=== PATIENT | female | born 1970 | race Caucasian/White ===

== ENCOUNTER → 2016-05-20 | Outpatient (CLI) | payer BC ==
[~2016-05-20] MED LIST: BCPILLS PO; LISI-461 PO; MULT-506 PO; NOVOLIN SQ; NVLGI SQ; ZCR80 PO
--- NOTE | 2016-05-21 14:26 | MAMMOGRAPHY REPORT ---
BILATERAL DIGITAL SCREENING MAMMOGRAM TOMOSYNTHESIS WITH CAD: 05/20/2016 CLINICAL HISTORY: Routine screening. Patient has no complaints. TECHNIQUE: Breast tomosynthesis in addition to standard 2D mammography was performed. Current study was also evaluated with a Computer Aided Detection (CAD) system. COMPARISON: Comparison is made to exams dated: 05/17/2015 mammogram, 03/07/2013 mammogram, 05/11/2014 m ammogram, 10/20/2011 mammogram, 09/11/2010 ultrasound, and 09/11/2010 mammogram - [facility]. BREAST COMPOSITION: The tissue of both breasts is extremely dense, which lowers the sensitivity of mammography. FINDINGS: The parenchymal pattern is unchanged. No developing mass, architectural distortion or clu ster of suspicious microcalcifications is seen in either breast. IMPRESSION: ACR BI-RADS CATEGORY 2: BENIGN There is no mammographic evidence of malignancy. A 1 year screening mammogram is recommended. The p atient will receive written notification of the results. Approximately 10% of breast cancers are not detected with mammography. A negative mammographic repor t should not delay biopsy if a clinically suggestive mass is present. Zuleima Perry M.D. ay/:05/20/2016 22:48:15 Wood Barrel Reconditioner: Tyler YUNG(R)(M), [facility] letter sent: Normal 1/2 BI-RADS Code: ACR BI-RADS Category 2: Benign
== END | disposition home or self-care (01) ==
LOC: C.MAMM 07:15
PROVIDERS: ATTEND Obstetrics & Gynecology
DX: Z12.31 Encounter for screening mammogram for malignant neoplasm of breast (principal)

== ENCOUNTER → 2016-08-27 | Outpatient (CLI) | payer BC ==
[2016-08-27 09:41] LABS: ESTIMATED AVERAGE GLUCOSE 143 mg/dl; HA1C FLAG Normal (Normal)
[2016-08-27 10:06] LABS: ALT/SGPT 28 U/L (12-78); BLOOD UREA NITROGEN 14 mg/dl (7-18); BUN/CREATININE RATIO 18.4 (10-20); CARBON DIOXIDE 31 mmol/L (21-32); CHLORIDE 104 mmol/L (98-107); CHOLESTEROL 129 mg/dl (0-200); CREATININE 0.75 mg/dl (0.60-1.20); GLUCOSE 122 mg/dl (70-99); POTASSIUM 3.9 mmol/L (3.5-5.1); SODIUM 140 mmol/L (136-145); TRIGLYCERIDES 70 mg/dl (0-150); VERY LOW DENSITY LIPOPROT CALC 14 mg/dl
[2016-08-27 10:16] LABS: ALB/GLOB RATIO 1.1 (0.9-2); ALKALINE PHOSPHATASE 94 U/L (45-117); AST/SGOT 23 U/L (15-37); CHOLESTEROL/HDL RATIO 1.8; HDL CHOLESTEROL 70 mg/dl; LDL CHOLESTEROL CALCULATED 45 mg/dl
[2016-08-27 10:26] LABS: CALCIUM 9.2 mg/dl (8.5-10.1)
== END | disposition home or self-care (01) ==
LOC: C.LAB1850 07:39
PROVIDERS: ATTEND Internal Medicine
DX: E10.39 Type 1 diabetes mellitus with other diabetic ophthalmic complication (principal)

== ENCOUNTER → 2016-12-30 | Outpatient (CLI) | payer BC ==
[2016-12-30 17:23] LABS: HEMATOCRIT 42.9 % (37-47); MEAN CELL VOLUME 94.5 fL (80-100); MEAN CORPUSCULAR HEMOGLOBIN 31.3 pg (25-34); MEAN CORPUSCULAR HGB CONC 33.1 g/dl (32-36); MEAN PLATELET VOLUME 10.4 fL (7.4-10.4); PLATELET COUNT 229 K/uL (130-400); RED BLOOD COUNT 4.54 M/uL (4.2-5.4); WHITE BLOOD COUNT 6.27 K/uL (4.8-10.8)
[2016-12-30 18:00] LABS: ALT/SGPT 22 U/L (12-78); BLOOD UREA NITROGEN 11 mg/dl (7-18); BUN/CREATININE RATIO 16.1 (10-20); CARBON DIOXIDE 31 mmol/L (21-32); CHLORIDE 105 mmol/L (98-107); CHOLESTEROL 133 mg/dl (0-200); CREATININE 0.66 mg/dl (0.60-1.20); GLUCOSE 64 mg/dl (70-99); POTASSIUM 4.1 mmol/L (3.5-5.1); SODIUM 140 mmol/L (136-145); TRIGLYCERIDES 55 mg/dl (0-150); VERY LOW DENSITY LIPOPROT CALC 11 mg/dl
[2016-12-30 18:04] LABS: ALKALINE PHOSPHATASE 82 U/L (45-117); AST/SGOT 16 U/L (15-37); CHOLESTEROL/HDL RATIO 1.8; HDL CHOLESTEROL 75 mg/dl; LDL CHOLESTEROL CALCULATED 47 mg/dl
[2016-12-30 18:12] LABS: RATIO 36.5 mcg/mg (0-30.0)
[2016-12-31 07:37] LABS: ESTIMATED AVERAGE GLUCOSE 143 mg/dl; HA1C FLAG Normal (Normal)
== END | disposition home or self-care (01) ==
LOC: C.LAB1850 16:44
PROVIDERS: ATTEND Internal Medicine
DX: E10.39 Type 1 diabetes mellitus with other diabetic ophthalmic complication (principal)

== ENCOUNTER → 2017-05-21 | Outpatient (CLI) | payer BC ==
[2017-05-21 09:49] LABS: ALBUMIN 3.3 gm/dl (3.4-5.0); ALT/SGPT 20 U/L (12-78); AST/SGOT 15 U/L (15-37); BLOOD UREA NITROGEN 10 mg/dl (7-18); CALCIUM 8.9 mg/dl (8.5-10.1); CARBON DIOXIDE 28 mmol/L (21-32); CHOLESTEROL 134 mg/dl (0-200); CREATININE 0.69 mg/dl (0.60-1.20); GLUCOSE 140 mg/dl (70-99); POTASSIUM 3.7 mmol/L (3.5-5.1); SODIUM 138 mmol/L (136-145)
[2017-05-21 09:52] LABS: ALKALINE PHOSPHATASE 77 U/L (45-117); LDL CHOLESTEROL CALCULATED 50 mg/dl; TOTAL PROTEIN 6.6 gm/dl (6.4-8.2)
[2017-05-21 09:53] LABS: HEMOGLOBIN A1C 6.4 % (4.5-5.6)
== END | disposition home or self-care (01) ==
LOC: C.LAB1850 07:34
PROVIDERS: ATTEND Internal Medicine
DX: E10.39 Type 1 diabetes mellitus with other diabetic ophthalmic complication (principal)

== ENCOUNTER → 2017-05-26 | Outpatient (CLI) | payer BC ==
--- NOTE | 2017-05-27 15:40 | MAMMOGRAPHY REPORT ---
BILATERAL DIGITAL SCREENING MAMMOGRAM TOMOSYNTHESIS WITH CAD: 05/26/2017 CLINICAL HISTORY: Routine screening. Patient has no complaints. TECHNIQUE: Breast tomosynthesis in addition to standard 2D mammography was performed. Current study was also evaluated with a Computer Aided Detection (CAD) system. COMPARISON: Comparison is made to exams dated: 05/20/2016 mammogram, 05/17/2015 mammogram, 05/11/2014 ma mmogram, 03/07/2013 mammogram, 10/20/2011 mammogram, and 10/20/2011 ultrasound - [facility]. BREAST COMPOSITION: The tissue of both breasts is extremely dense, which lowers the sensitivity of m ammography. FINDINGS: The parenchymal pattern is unchanged. No developing mass, architectural distortion or clus ter of suspicious microcalcifications is seen in either breast. IMPRESSION: ACR BI-RADS CATEGORY 2: BENIGN There is no mammographic evidence of malignancy. A 1 year screening mammogram is recommended. The pa tient will receive written notification of the results. Approximately 10% of breast cancers are not detected with mammography. A negative mammographic report should not delay biopsy if a clinically suggestive mass is present. Zuleima Perry M.D. ay/:05/26/2017 15:25:55 Finish Production Manager: Kelsey YUNG(R)(M), [facility] letter sent: Normal 1/2 BI-RADS Code: ACR BI-RADS Category 2: Benign
== END | disposition home or self-care (01) ==
LOC: C.MAMM 07:26
PROVIDERS: ATTEND Obstetrics & Gynecology
DX: Z12.31 Encounter for screening mammogram for malignant neoplasm of breast (principal)

== ENCOUNTER 2022-04-15 17:53 | Inpatient (IN) ==
[2022-04-15 19:31] LABS: Basophils # (auto) 0.04 K/uL (0-0.2); Basophils % (auto) 0.4 %; Hemoglobin 15.2 g/dl (12.0-16.0); Immature Granulocytes # (auto) 0.03 K/uL (0.00-0.02); Immature Granulocytes % (auto) 0.3 %; Lymphocytes # (auto) 2.38 K/uL (1.2-3.4); Mean Corpuscular Hemoglobin 32.6 pg (25.0-34.0); Mean Corpuscular Hgb Conc 34.5 g/dL (32.0-36.0); Mean Corpuscular Volume 94.4 fL (80.0-100.0); Mean Platelet Volume 10.2 fL (9.4-12.3); Monocytes # (auto) 0.71 K/uL (0.24-0.82); Monocytes % (auto) 6.9 %; Neutrophils # (auto) 7.07 K/uL (1.4-6.5); Neutrophils % (auto) 68.4 %; Platelet Count 236 K/uL (130-400); RDW Coefficient of Variation 11.4 % (11.5-14.5); RDW Standard Deviation 38.8 fL (36.4-46.3); Red Blood Count 4.66 M/uL (3.93-5.22); White Blood Count 10.33 K/ul (4.8-10.8)
[2022-04-15 19:48] LABS: Appearance Urine Cloudy (Clear); Bacteria Urine Automated Negative (Negative); Bilirubin Urine Negative (Negative); Blood Urine Negative (Negative); Color Urine Yellow; Epithelial Cell Urine Auto >30 /lpf (0-5); Glucose Urine UA Negative (Negative); Ketones Urine Negative (Negative); Leukocyte Esterase Urine Trace (Negative); Nitrite Urine Negative (Negative); Protein Urine Negative (Negative); Urobilinogen Urine Negative (Negative); pH Urine >= 9.0 (4.5-7.5)
[2022-04-15 20:03] LABS: Albumin Globulin Ratio 1.5 (0.9-2); Albumin Level 4.3 gm/dl (3.4-5.0); BUN Creatinine Ratio 12.5 (10-20); Bilirubin,Total 0.5 mg/dl (0.2-1.0); Est GFR (Non-African American) 98.3 ml/min; Globulin 2.9 gm/dl (2.5-4.0); Potassium 4.1 mmol/L (3.5-5.1); Total Protein 7.2 gm/dl (6.0-8.3)
[2022-04-15] MEDS ORDERED: OPTIRAY 350 100ml IV ONE (20:32)
--- NOTE | 2022-04-15 20:36 | Emergency Department Note ---
History of Present Illness General Chief complaint: Abdominal Pain Stated complaint: ABDOMINAL PAIN, PELVIC PAIN Time Seen by Provider: 04/15/22 20:06 History of Present Illness Maximum Pain Intensity: 8 51-year-old female presents to the ED with a chief complaint of mid abdominal pain since this morning. The pain is also now in the right lower quadrant of the abdomen down to the groin. She feels a little bloated. Last normal bowel was yesterday. No urinary symptoms. No vomiting. No fevers. No back pains. Additional complaints. Because her symptoms are ongoing, she decided come in for evaluation. Home Medications Medication Instructions Recorded Confirmed Type lancets 30 gauge (Lite Touch #300 ea 11/08/18 04/14/22 Rx Lancets) multivitamin-ferrous 1 tab PO QAM 11/08/18 04/14/22 History fumarate-folic acid 18 mg-400 mcg tablet (Centrum Complete) simvastatin 80 mg tablet 80 mg PO QPM #90 tabs 06/20/21 04/14/22 Rx insulin syringe-needle U-100 0.5 #150 ea 07/24/21 04/14/22 Rx mL 31 gauge x 5/16" (BD Insulin Syringe Ultra-Fine) blood sugar diagnostic (FreeStyle #300 ea 12/24/21 04/14/22 Rx Lite Strips) calcium 600 mg capsule 600 mg PO QAM 04/14/22 04/14/22 History insulin NPH isoph U-100 human 100 27 unit subcut UD 04/14/22 04/14/22 History unit/mL subcutaneous suspension (Novolin N NPH U-100 Insulin isophane) insulin aspart U-100 100 unit/mL 10 unit subcut UD 04/14/22 04/14/22 History subcutaneous solution (Novolog U-100 Insulin aspart) lisinopril 10 mg tablet 10 mg PO QPM 04/14/22 04/14/22 History norgestimate-ethinyl estradiol 1 tab PO QPM #84 tabs 04/14/22 04/14/22 Rx 0.18 mg/0.215mg/0.25mg-35 mcg(28)tablet (Tri-Sprintec (28)) Allergies Allergy/AdvReac Type Severity Reaction Status Date / Time No Known Allergies Allergy Verified 04/14/22 15:39 Past Med/Surg History Medical History 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 Brock History of trigger finger Hx of tonsillectomy S/P fine needle aspiration remarkable for hyperplasia Family History Aunt Breast cancer paternal aunt Pancreatic cancer maternal aunt Mother Hypertension Sister Skin cancer Father Myelodysplastic syndrome Bladder cancer Family/Other Breast cancer, Onset Age: 53 maternal cousin Denies family history of Ovarian cancer Prostate cancer Diabetes Depression Heart disease Myocardial infarction Osteoarthritis Lung cancer Colorectal cancer Pulmonary embolism Stroke Social History Smoking Status: Never smoker Hx Alcohol Use: No Hx Substance Use: No Preferred Language: Ghanaian Communication Ability: Effective Visual Impairment: No Limitations Hearing Ability: Normal Surgery Scheduler Required: No Beliefs That Will Affect Care: None marital status: Current Living Situation: Spouse current occupational status: employed Feels Safe at Home: Yes Dental Care, Regularly: Yes Physical Activity Frequency: 1-2 Times per Week Seatbelt Use: always Sunscreen Use: Yes Assistive Devices: Contacts and Glasses Review of Systems A total of 10 systems reviewed and were otherwise negative Physical Exam Vital Signs Vital Signs - 24 hr 04/15/22 18:03 04/15/22 19:54 04/15/22 21:00 Temperature 36.5 C Temperature Source Temporal Artery Scan Pulse Rate 95 H Pulse Rate [Apical] 77 94 H Pulse Rhythm [Apical] Regular Regular Pulse Strength [Apical] Normal Normal Respiratory Rate 18 20 20 Respiratory Effort / Characteristics Non-Labored Non-Labored Respiratory Depth Normal Normal Respiratory Pattern Regular Regular Blood Pressure 143/88 H Blood Pressure [Right Arm] 136/71 112/68 Blood Pressure Mean 106 Blood Pressure Mean [Right Arm] 92 82 Blood Pressure Position [Right Arm] Lying Lying Pulse Oximetry 98 100 99 Oxygen Delivery Method Room Air Room Air Room Air Sepsis Recent Fever Within 48 Hours No Sepsis New/Unexplained Change in Mental Status No Sepsis Action Taken by Nursing No Action Required 04/15/22 22:00 Temperature Temperature Source Pulse Rate Pulse Rate [Apical] 91 H Pulse Rhythm [Apical] Regular Pulse Strength [Apical] Normal Respiratory Rate 18 Respiratory Effort / Characteristics Non-Labored Respiratory Depth Normal Respiratory Pattern Regular Blood Pressure Blood Pressure [Right Arm] 154/80 H Blood Pressure Mean Blood Pressure Mean [Right Arm] 104 Blood Pressure Position [Right Arm] Pulse Oximetry 99 Oxygen Delivery Method Room Air Sepsis Recent Fever Within 48 Hours Sepsis New/Unexplained Change in Mental Status Sepsis Action Taken by Nursing CONSTITUTIONAL/VITAL SIGNS: Reviewed / noted above. GENERAL: Non-toxic in appearance. INTEGUMENTARY: Warm, dry, and [place]. HEAD: Normocephalic. EYES: without scleral icterus or trauma. ENT/OROPHARYNX: clear and moist. LYMPHADENOPATHY/NECK: Is supple without lymphadenopathy or meningismus. RESPIRATORY: Clear to auscultation bilaterally. No increased work of breathing. CARDIOVASCULAR: Regular rate and rhythm. GI/ABDOMEN: Soft and tender in the epigastric area and the right lower quadrant. No organomegaly or pulsatile mass. EXTREMITIES: Warm and well perfused. BACK: No CVA tenderness. NEUROLOGICAL: Intact without focal deficits. PSYCHIATRIC: normal affect. MUSCULOSKELETAL: Normally developed with good muscle tone. TRIAGE NURSING DOCUMENTATION REVIEWED. Course Administered Medications Discontinued Medications Piperacillin Sod/Tazobactam Sod (Zosyn) 4.5 gm in 120 mls @ 240 mls/hr IV NOW ONE Stop: 04/15/22 22:21 Last Infusion: 04/15/22 22:32 Dose: 0 mls/hr Documented By: Admin: 04/15/22 22:05 Dose: 240 mls/hr Documented By: ZOYA Sodium Chloride (Nss 1000ml) 1,000 mls @ 999 mls/hr IV .Q1H1M PING Stop: 04/15/22 22:53 Last Admin: 04/15/22 22:06 Dose: 999 mls/hr Documented By: ZOYA Ioversol (Optiray 350 100ml) 85 ml IV ONCE ONE Stop: 04/15/22 20:33 Last Admin: 04/15/22 20:32 Dose: 85 ml Documented By: BERNARDA Medical Decision Making Differential Diagnosis Differential considered: pancreatitis, hepatitis, acute cholecystitis, AAA, UT I, pyelonephritis, kidney stones, appendicitis, diverticulitis, shingles, bowel obstruction, mesenteric ischemia, intussusception,hernia, ovarian torsion, ovarian cyst, ectopic , other. Medical Records Attestation: I reviewed the patient's medical records. Home Medications Current Medication List: was personally reviewed by me Laboratory Data Attestation: I reviewed the patient's lab results. Result diagrams: 04/15/22 19:15 04/15/22 19:15 Lab Results 04/15/22 04/15/22 04/15/22 Range/Units 19:05 19:09 19:15 WBC 10.33 (4.8-10.8) K/ul RBC 4.66 (3.93-5.22) M/uL Hgb 15.2 (12.0-16.0) g/dl Hct 44.0 (34.1-44.9) % MCV 94.4 (80.0-100.0) fL MCH 32.6 (25.0-34.0) pg MCHC 34.5 (32.0-36.0) g/dL RDW Std Deviation 38.8 (36.4-46.3) fL RDW Coeff of Annika 11.4 L (11.5-14.5) % Plt Count 236 (130-400) K/uL MPV 10.2 (9.4-12.3) fL Immature Gran % (Auto) 0.3 % Neut % (Auto) 68.4 % Lymph % (Auto) 23.0 % [place] % (Auto) 6.9 % Eos % (Auto) 1.0 % Baso % (Auto) 0.4 % Neut # (Auto) 7.07 H (1.4-6.5) K/uL Lymph # (Auto) 2.38 (1.2-3.4) K/uL [place] # (Auto) 0.71 (0.24-0.82) K/uL Eos # (Auto) 0.10 (0-0.50) K/uL Baso # (Auto) 0.04 (0-0.2) K/uL Immature Gran # (Auto) 0.03 H (0.00-0.02) K/uL Sodium (136-145) mmol/L Potassium (3.5-5.1) mmol/L Chloride (98-107) mmol/L Carbon Dioxide (21-32) mmol/L Anion Gap (3-11) BUN (6-23) mg/dl Creatinine (0.6-1.2) mg/dl Est Cr Clr Drug Dosing ml/min Est GFR ( Amer) ml/min Est GFR (Non-Af Amer) ml/min BUN/Creatinine Ratio (10-20) Glucose (70-99(Fasting)) mg/dl Calcium (8.5-10.1) mg/dl Total Bilirubin (0.2-1.0) mg/dl AST (13-39) U/L ALT (7-52) U/L Alkaline Phosphatase (34-104) U/L Total Protein (6.0-8.3) gm/dl Albumin (3.4-5.0) gm/dl Globulin (2.5-4.0) gm/dl Albumin/Globulin Ratio (0.9-2) Lipase (11-82) U/L Urine Color Yellow Urine Appearance Cloudy A (Clear) Urine pH >= 9.0 H (4.5-7.5) Ur Specific [place] 1.010 (1.000-1.030) Urine Protein Negative (Negative) Urine Glucose (UA) Negative (Negative) Urine Ketones Negative (Negative) Urine Blood Negative (Negative) Urine Nitrite Negative (Negative) Urine Bilirubin Negative (Negative) Urine Urobilinogen Negative (Negative) Ur Leukocyte Esterase Trace H (Negative) Urine WBC (Auto) 1-5 (0-5) /hpf Urine RBC (Auto) 5-10 H (0-4) /hpf U Hyaline Cast (Auto) 1-5 (0-5) /lpf U Epithel Cells (Auto) >30 H (0-5) /lpf Urine Bacteria (Auto) Negative (Negative) POC Ur Test NEG (NEG) SARS-CoV-2, RNA, NAAT (NEGATIVE) 04/15/22 04/15/22 Range/Units 19:15 21:45 WBC (4.8-10.8) K/ul RBC (3.93-5.22) M/uL Hgb (12.0-16.0) g/dl Hct (34.1-44.9) % MCV (80.0-100.0) fL MCH (25.0-34.0) pg MCHC (32.0-36.0) g/dL RDW Std Deviation (36.4-46.3) fL RDW Coeff of Annika (11.5-14.5) % Plt Count (130-400) K/uL MPV (9.4-12.3) fL Immature Gran % (Auto) % Neut % (Auto) % Lymph % (Auto) % [place] % (Auto) % Eos % (Auto) % Baso % (Auto) % Neut # (Auto) (1.4-6.5) K/uL Lymph # (Auto) (1.2-3.4) K/uL [place] # (Auto) (0.24-0.82) K/uL Eos # (Auto) (0-0.50) K/uL Baso # (Auto) (0-0.2) K/uL Immature Gran # (Auto) (0.00-0.02) K/uL Sodium 138 (136-145) mmol/L Potassium 4.1 (3.5-5.1) mmol/L Chloride 102 (98-107) mmol/L Carbon Dioxide 30 (21-32) mmol/L Anion Gap 6 (3-11) BUN 9 (6-23) mg/dl Creatinine 0.72 (0.6-1.2) mg/dl Est Cr Clr Drug Dosing 84.0 ml/min Est GFR ( Amer) 114.0 ml/min Est GFR (Non-Af Amer) 98.3 ml/min BUN/Creatinine Ratio 12.5 (10-20) Glucose 75 (70-99(Fasting)) mg/dl Calcium 9.0 (8.5-10.1) mg/dl Total Bilirubin 0.5 (0.2-1.0) mg/dl AST 17 (13-39) U/L ALT 15 (7-52) U/L Alkaline Phosphatase 94 (34-104) U/L Total Protein 7.2 (6.0-8.3) gm/dl Albumin 4.3 (3.4-5.0) gm/dl Globulin 2.9 (2.5-4.0) gm/dl Albumin/Globulin Ratio 1.5 (0.9-2) Lipase 11 (11-82) U/L Urine Color Urine Appearance (Clear) Urine pH (4.5-7.5) Ur Specific [place] (1.000-1.030) Urine Protein (Negative) Urine Glucose (UA) (Negative) Urine Ketones (Negative) Urine Blood (Negative) Urine Nitrite (Negative) Urine Bilirubin (Negative) Urine Urobilinogen (Negative) Ur Leukocyte Esterase (Negative) Urine WBC (Auto) (0-5) /hpf Urine RBC (Auto) (0-4) /hpf U Hyaline Cast (Auto) (0-5) /lpf U Epithel Cells (Auto) (0-5) /lpf Urine Bacteria (Auto) (Negative) POC Ur Test (NEG) SARS-CoV-2, RNA, NAAT NEGATIVE (NEGATIVE) Imaging Data Radiologist's Impression: Abdomen/Pelvis CT 04/15/22 20:[address] WITH IV CONTRAST CT DOSE: 307.26 mGy.cm HISTORY: Bloating with acute mid and right lower quadrant abdominal pain. No leukocytosis. rlq pain TECHNIQUE: Multiaxial CT images of the abdomen and pelvis were performed following the IV administration of 85 cc of Optiray, A dose lowering technique was utilized adhering to the principles of ALARA. COMPARISON STUDY: None. FINDINGS: Clear lung bases. No pneumatosis or pneumoperitoneum. Unremarkable spleen, pancreas, gallbladder, adrenal glands and liver. Patency of the hepatic and portal veins. Unremarkable kidneys. No hydronephrosis. Mild urinary bladder wall thickening with partial distention. Retroflexed uterus. There is heterogeneous thickening of the fundal endometrium with 4 cm ill-defined lesion demonstrating a subcentimeter calcification. 3.7 cm left ovarian cyst. Mild atherosclerosis of the aorta. No lymphadenopathy. There is retained enteric contrast within the terminal ileum which crosses left to the midline. The ileocecal valve is present within the left midabdomen. Moderate gaseous distention of the cecum measuring up to 7.3 cm. There is mild swirling within the right mid lower abdominal mesentery with narrowing of the ascending colon. Mild associated intraluminal edema within this distribution. The appendix is not definitively seen. Unremarkable soft tissues. No acute fracture. IMPRESSION: 1. There is swirling within the abdominal right lower quadrant mesentery with the cecum displaced within the left mid abdomen resulting in narrowing of the ascending colon. There is moderate gaseous distention of the cecum and splenic flexure. Findings raise the possibility of a possible internal hernia or cecal volvulus with mild mesenteric edema and trace ascites within the right midabdomen. 2. No small bowel obstruction or pneumoperitoneum. 3. Probable fibroid of the uterine fundus. 4. 3.7 cm left ovarian cyst. ACT 112: Negative or not required by law. The above report was generated using voice recognition software. It may contain grammatical, syntax or spelling errors. Electronically signed by: Ramo Campos M.D. 04/15/2022 9:27 PM MDM Narrative 51-year-old female presents with a chief complaint of abdominal pain as detailed above. Her CBC and chemistry panel was normal. Lipase was negative. CT scan is concerning for a cecal volvulus and/or internal hernia. I did speak with general surgery. They evaluated the patient and took the patient to the operating room. Impression & Plan Cecal volvulus, Abdominal pain Discharge Plan Visit Data Chief Complaint: Abdominal Pain Stated Complaint: ABDOMINAL PAIN, PELVIC PAIN ED Provider: Sea Conrad Discharge Problem: Cecal volvulus, Abdominal pain Discharge Instructions Interventions: ED Discharge Assessment Last Done: 04/15/22 22:46
--- NOTE | 2022-04-15 21:29 | CT Scan Report ---
ABDOMEN AND PELVIS CT WITH IV CONTRAST CT DOSE: 307.26 mGy.cm HISTORY: Bloating with acute mid and right lower quadrant abdominal pain. No leukocytosis. rlq pain TECHNIQUE: Multiaxial CT images of the abdomen and pelvis were performed following the IV administrat ion of 85 cc of Optiray, A dose lowering technique was utilized adhering to the principles of ALARA. COMPARISON STUDY: None. FINDINGS: Clear lung bases. No pneumatosis or pneumoperitoneum. Unremarkable spleen, pancreas, gallbl adder, adrenal glands and liver. Patency of the hepatic and portal veins. Unremarkable kidneys. No hydronephrosis. Mild urinary bladder wall thickening with partial distention . Retroflexed uterus. There is heterogeneous thickening of the fundal endometrium with 4 cm ill-defin ed lesion demonstrating a subcentimeter calcification. 3.7 cm left ovarian cyst. Mild atherosclerosis of the aorta. No lymphadenopathy. There is retained enteric contrast within the terminal ileum which crosses left to the midline. The i leocecal valve is present within the left midabdomen. Moderate gaseous distention of the cecum measur ing up to 7.3 cm. There is mild swirling within the right mid lower abdominal mesentery with narrowin g of the ascending colon. Mild associated intraluminal edema within this distribution. The appendix i s not definitively seen. Unremarkable soft tissues. No acute fracture. IMPRESSION: 1. There is swirling within the abdominal right lower quadrant mesentery with the cecum displaced wit hin the left mid abdomen resulting in narrowing of the ascending colon. There is moderate gaseous dis tention of the cecum and splenic flexure. Findings raise the possibility of a possible internal herni a or cecal volvulus with mild mesenteric edema and trace ascites within the right midabdomen. 2. No small bowel obstruction or pneumoperitoneum. 3. Probable fibroid of the uterine fundus. 4. 3.7 cm left ovarian cyst. ACT 112: Negative or not required by law. The above report was generated using voice recognition software. It may contain grammatical, syntax o r spelling errors. Electronically signed by: Ramo Campos M.D. 04/15/2022 9:27 PM
[2022-04-15] MEDS ORDERED: PIPERACILLIN/TAZOBACTAM 4.5 GM/120 ML BAG IV ONE (21:52)
[2022-04-15] MEDS ORDERED: SODIUM CHLORIDE 0.9% 1000ML 1,000 ML IV SCH (21:53)
--- NOTE | 2022-04-15 22:08 | Anesthesiology Consultation ---
Date of Service April 15, 2022 Assessment & Plan (1) Encounter for pre-operative examination: Chart Review Chart Review: Acceptable Risk for Surgery and Patient NOT seen in Pre Admission Testing Consults Requested none History Surgery Operation Date: 04/15/22 23:15 Proposed Procedures p Bowel Resection - [place], Height/Weight Height: 5 ft 1 in Weight: 69.1 kg Allergies Allergy/AdvReac Type Severity Reaction Status Date / Time No Known Allergies Allergy Verified 04/14/22 15:39 Medications Home Medications Medication Instructions Recorded Confirmed Last Taken lancets 30 gauge (Lite Touch #300 ea 11/08/18 04/14/22 Unknown Lancets) multivitamin-ferrous 1 tab PO QAM 11/08/18 04/14/22 Unknown fumarate-folic acid 18 mg-400 mcg tablet (Centrum Complete) simvastatin 80 mg tablet 80 mg PO QPM #90 tabs 06/20/21 04/14/22 Unknown insulin syringe-needle U-100 0.5 #150 ea 07/24/21 04/14/22 Unknown mL 31 gauge x 5/16" (BD Insulin Syringe Ultra-Fine) blood sugar diagnostic (FreeStyle #300 ea 12/24/21 04/14/22 Unknown Lite Strips) calcium 600 mg capsule 600 mg PO QAM 04/14/22 04/14/22 Unknown insulin NPH isoph U-100 human 100 27 unit subcut UD 04/14/22 04/14/22 Unknown unit/mL subcutaneous suspension (Novolin N NPH U-100 Insulin isophane) insulin aspart U-100 100 unit/mL 10 unit subcut UD 04/14/22 04/14/22 Unknown subcutaneous solution (Novolog U-100 Insulin aspart) lisinopril 10 mg tablet 10 mg PO QPM 04/14/22 04/14/22 Unknown norgestimate-ethinyl estradiol 1 tab PO QPM #84 tabs 04/14/22 04/14/22 Unknown 0.18 mg/0.215mg/0.25mg-35 mcg(28)tablet (Tri-Sprintec (28)) Active Medications Generic Name Dose Route Start Last Admin Trade Name Freq PRN Reason Stop Dose Admin Piperacillin Sod/Tazobactam Sod 4.5 gm in 120 mls @ 240 mls/hr 04/15/22 21:52 04/15/22 22:05 Zosyn IV 04/15/22 22:21 240 mls/hr NOW ONE Administration Sodium Chloride 1,000 mls @ 999 mls/hr 04/15/22 21:53 04/15/22 22:06 Nss 1000ml IV 04/15/22 22:53 999 mls/hr .Q1H1M PING Administration Past Medical History Medical History 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 Diabetic retinopathy Frequent bowel movements ONGOING ISSUE/DENIES CHANGES IN BOWEL HABITS Hemorrhoids STARTED 04/13/22 History of breast lump bilateral History of joint pain right hip Hypercholesterolemia Nausea and vomiting after administration of anesthetic agent Trigger finger of right hand Past Family History Family History Aunt Breast cancer paternal aunt Pancreatic cancer maternal aunt Mother Hypertension Sister Skin cancer Father Myelodysplastic syndrome Bladder cancer Family/Other Breast cancer, Onset Age: 53 maternal cousin Denies family history of Ovarian cancer Prostate cancer Diabetes Depression Heart disease Myocardial infarction Osteoarthritis Lung cancer Colorectal cancer Pulmonary embolism Stroke Past Surgical History Surgical History H/O shoulder surgery Left shoulder capsulitis H/O wisdom tooth extraction History of arthroscopy of right shoulder with debridement and capsular release, subacromial decompression- 10/23/14- Dr. Brock History of trigger finger Hx of tonsillectomy S/P fine needle aspiration remarkable for hyperplasia Social History Smoking Status: Never smoker Hx Alcohol Use: No Hx Substance Use: No substance use type: does not use Physical Exam Vital Signs Last Vital Signs Temp 97.7 F 04/15/22 18:03 Pulse 94 H 04/15/22 21:00 Resp 20 04/15/22 21:00 BP 112/68 04/15/22 21:00 Pulse Ox 99 04/15/22 21:00 O2 Del Method 04/15/22 21:00 Testing Laboratory Results 04/15/22 19:15 04/15/22 19:15 Urine Color Yellow 04/15/22 19:05 Urine Appearance Cloudy (Clear) A 04/15/22 19:05 Urine pH >= 9.0 (4.5-7.5) H 04/15/22 19:05 Ur Specific [place] 1.010 (1.000-1.030) 04/15/22 19:05 Urine Protein Negative (Negative) 04/15/22 19:05 Urine Glucose (UA) Negative (Negative) 04/15/22 19:05 Urine Ketones Negative (Negative) 04/15/22 19:05 Urine Nitrite Negative (Negative) 04/15/22 19:05 Ur Leukocyte Esterase Trace (Negative) H 04/15/22 19:05 Urine WBC (Auto) 1-5 /hpf (0-5) 04/15/22 19:05 Urine RBC (Auto) 5-10 /hpf (0-4) H 04/15/22 19:05 U Hyaline Cast (Auto) 1-5 /lpf (0-5) 04/15/22 19:05 U Epithel Cells (Auto) >30 /lpf (0-5) H 04/15/22 19:05 Urine Bacteria (Auto) Negative (Negative) 04/15/22 19:05 04/15/22 19:09 POC Ur Test NEG
--- NOTE | 2022-04-15 22:13 | History & Physical Report ---
Date of Service April 15, 2022 Assessment & Plan (1) Abdominal pain: Plan: Based on the patient's clinical presentation and imaging there is concern the patient may have either a cecal volvulus or an internal hernia we will therefore proceed as follows: We will maintain n.p.o. status We will hydrate the patient with IV fluids. I have ordered a 1 L bolus of normal saline solution followed by normal saline solution to run at 125 cc/h We will administer antibiotics in the form of Zosyn Analgesia be provided Antiemetics will be provided Due to the noted findings on her CT scan we have tentatively plan for an exploratory laparotomy with Dr. Alcala this evening. I had a lengthy discussion with the patient and her outlining the risks, benefits, and alternatives. I explained to them that this is exploratory surgery and we are uncertain the extent of her surgical procedure until we are able to definitively ascertain the cause of her symptomatology. Due to the patient's type 1 diabetes we will enlist the help of the hospitalist service and managing the patient's blood glucose. Additional recommendations be forthcoming based on operative findings as well as her postoperative course as it unfolds SCDs will be used for DVT prevention due to planned surgery The patient be a level 1 full code As above. Patient seen CT scan reviewed. 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 She continues to have moderate pain with waves of severe pain. Been ongoing all day. Concern is bowel ischemia with potential progression for infarction. We discussed her options. I discussed potential risks of surgery which include bleeding, infection, injury to bowel or other organs, DVT, PE, MN, CVA etc. We discussed this may necessitate a temporary diverting stoma of some sort. May require bowel resection. I have answered all their questions. They agree to the plan. We will proceed JOYCE with exploratory laparotomy possible bowel resection surgery as needed. History of Present Illness Chief Complaint: Abdominal pain Primary Care Provider: Freda Duran MD This is a 51-year-old female with no prior abdominal surgeries who was in her usual state of health until this morning when she woke up with some generalized abdominal pain. She notes that the pain moved throughout her abdomen but appeared to be most severe on the right side of her abdomen. She did note that the pain improved with certain positions but otherwise did not note any pall iative factors. She did not note any provocative factors. She did not have any nausea or vomiting but did force herself to vomit with no improvement of her symptoms. She said that she had a normal bowel movement yesterday but has not had a bowel movement this today and has not been passing flatus since her symptoms began. As noted above she has no prior abdominal surgeries. She notes that her most recent oral intake of solid food was at approximately 12:30 PM today. She said that she did have some water since then but feels that she has not had any since 6:00 PM. The patient notes that she is a type I diabetic and took 27 units of novel and insulin and 10 units of NovoLog insulin today. She notes that she has not taken any other diabetic medications today. The patient notes that she leads an active lifestyle when she is feeling well and feels that she could easily walk 1 mile on a flat surface and can negotiate at least 2 flights of steps without any chest pain or shortness of breath or other limiting factors. Since arrival to the emergency department the patient has had labs and imaging which independent reviewed. A CT scan of the abdomen pelvis showed the patient had swirling in the right upper nominal right lower quadrant mesentery. The cecum appeared to be displaced to the left side of the abdomen resulting in narrowing of the ascending colon. There is gaseous distention of the cecum and splenic flexure raising the possibility of a possible internal hernia or cecal volvulus. There is mesenteric edema and trace ascites in the right mid abdomen. There is no evidence of small bowel obstruction or pneumoperitoneum. Labs include a CBC her white blood cell count, hemoglobin, hematocrit, and platelet count were all within normal range. Chemistry profile showed sodium, potassium, BUN, and creatinine were all within the normal range. There is no elevation of patient's LFTs or lipase. Urinalysis was not indicative of infection. A COVID test is negative. At the time of my interview the patient was resting comfortably in bed and she was in no distress. Allergies Allergy/AdvReac Type Severity Reaction Status Date / Time No Known Allergies Allergy Verified 04/14/22 15:39 Home Medications Medication Instructions Recorded Confirmed Type lancets 30 gauge (Lite Touch #300 ea 11/08/18 04/14/22 Rx Lancets) multivitamin-ferrous 1 tab PO QAM 11/08/18 04/14/22 History fumarate-folic acid 18 mg-400 mcg tablet (Centrum Complete) simvastatin 80 mg tablet 80 mg PO QPM #90 tabs 06/20/21 04/14/22 Rx insulin syringe-needle U-100 0.5 #150 ea 07/24/21 04/14/22 Rx mL 31 gauge x 5/16" (BD Insulin Syringe Ultra-Fine) blood sugar diagnostic (FreeStyle #300 ea 12/24/21 04/14/22 Rx Lite Strips) calcium 600 mg capsule 600 mg PO QAM 04/14/22 04/14/22 History insulin NPH isoph U-100 human 100 27 unit subcut UD 04/14/22 04/14/22 History unit/mL subcutaneous suspension (Novolin N NPH U-100 Insulin isophane) insulin aspart U-100 100 unit/mL 10 unit subcut UD 04/14/22 04/14/22 History subcutaneous solution (Novolog U-100 Insulin aspart) lisinopril 10 mg tablet 10 mg PO QPM 04/14/22 04/14/22 History norgestimate-ethinyl estradiol 1 tab PO QPM #84 tabs 04/14/22 04/14/22 Rx 0.18 mg/0.215mg/0.25mg-35 mcg(28)tablet (Tri-Sprintec (28)) Past Med/Surg History Medical History 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 Brock History of trigger finger Hx of tonsillectomy S/P fine needle aspiration remarkable for hyperplasia Family History Aunt Breast cancer paternal aunt Pancreatic cancer maternal aunt Mother Hypertension Sister Skin cancer Father Myelodysplastic syndrome Bladder cancer Family/Other Breast cancer, Onset Age: 53 maternal cousin Denies family history of Ovarian cancer Prostate cancer Diabetes Depression Heart disease Myocardial infarction Osteoarthritis Lung cancer Colorectal cancer Pulmonary embolism Stroke Social History Smoking Status: Never smoker Hx Alcohol Use: No Hx Substance Use: No Preferred Language: Luxembourgish Communication Ability: Effective Visual Impairment: No Limitations Hearing Ability: Normal Tailer In Required: No Beliefs That Will Affect Care: None marital status: Current Living Situation: Spouse current occupational status: employed Feels Safe at Home: Yes Dental Care, Regularly: Yes Physical Activity Frequency: 1-2 Times per Week Seatbelt Use: always Sunscreen Use: Yes Assistive Devices: Contacts and Glasses Review of Systems Constitutional: no fever and no chills Eyes: + corrective lenses Ear, Nose, Mouth, Throat: no ear pain Respiratory: no cough and no dyspnea Cardiovascular: no chest pain Gastrointestinal: as per Subjective / HPI, + abdominal pain and + vomiting (For retching induced by patient); no nausea Genitourinary: no dysuria Musculoskeletal: no back pain Integumentary: no rash Neurologic: no localized weakness Physical Exam Constitutional: well developed and well nourished; + uncomfortable Eyes: no conjunctival abnormality Wears glasses ENMT: Ears: no hearing impairment and no external ear abnormality Mouth: no oropharynx abnormality Neck: trachea midline Respiratory: normal respiratory effort, lungs clear to auscultation Cardiovascular: Rate/Rhythm: regular rate and regular rhythm Vessels: dorsalis pedis pulses present and radial pulses present Gastrointestinal (Abdomen): Abdomen is mildly distended but soft and nonrigid. There is no rebound tenderness or guarding but patient did have significant tenderness with palpation throughout her abdomen but this appeared to be greatest on the right side just to the right of her umbilicus. Musculoskeletal: No calf tenderness Skin: no rashes Neurologic: moves all extremities Psychiatric: A+Ox3, euthymic affect Results & Data Results & Data ([facility]) Vital Signs (Past 12 Hours) Vital Signs Temp Pulse Pulse Resp BP BP Pulse Ox 04/15/22 21:00 94 H 20 112/68 99 04/15/22 19:54 77 20 136/71 100 04/15/22 18:03 36.5 C 95 H 18 143/88 H 98 O2 Del Method 04/15/22 21:00 Room Air 04/15/22 19:54 Room Air 04/15/22 18:03 Room Air PG Care Time/CCT Total # of Minutes Spent Total Time Spent with Patient: Total time spent is greater than 50% in coordination of care (as documented) at patient's floor/unit and/or counseling patient: Coding Level of Care Code 61455 Initial Inpt Care Lvl 3 Diagnoses Abdominal pain R10.9
[2022-04-15] MEDS ORDERED: ONDANSETRON INJ 2 MG/ML 2 ML VIAL ONE (22:14)
[2022-04-15] MEDS ORDERED: DEXAMETHASONE SOD INJ 4 MG/ML VIAL ONE (22:14)
[2022-04-15] MEDS ORDERED: MIDAZOLAM HCL 1 MG/ML 2ML VIAL ONE (22:14)
[2022-04-15] MEDS ORDERED: KETOROLAC 30 MG/ML VIAL ONE (22:14)
[2022-04-15] MEDS ORDERED: fentaNYL citrate 100 MCG/2 ML VIAL ONE (22:14)
[2022-04-15] MEDS ORDERED: ROCURONIUM BROMIDE 10 MG/ML 5 ML VIAL IV ONE (22:14)
[2022-04-15] MEDS ORDERED: PROPOFOL IV EMULSION 10 MG/ML 20 ML VIAL IV ONE (22:14)
[2022-04-15] MEDS ORDERED: fentaNYL citrate 100 MCG/2 ML VIAL IV PRN (23:05)
[2022-04-15] MEDS ORDERED: ePHEDrine sulfate 50 MG/ML AMP IV PRN (23:05)
[2022-04-15] MEDS ORDERED: ATROPINE SULFATE 0.1 MG/ML 10ML SYR IV PRN (23:05)
[2022-04-15] MEDS ORDERED: ONDANSETRON INJ 2 MG/ML 2 ML VIAL IV PRN (23:05)
--- NOTE | 2022-04-16 01:07 | Operative Report ---
PG Post Operative Report Pre & Post Diagnosis Operation Date: 04/15/22 23:15 Pre-Op Diagnosis: Cecal volvulus Post-Op Diagnosis: Cecal volvulus I identified the patient and participated in the time-out.: Yes Procedure Operation Date: 04/15/22 23:15 Actual Procedures p Exploratory Lapratomy, Right hemicolectomy, Diverting Ileostomy(Not Applicable) - Kole Alcala DO Surgeon Kole Alcala DO Knockout Man aspen Leal Estimated Blood Loss 10 Findings Consistent with Post-Op Diagnosis Specimens terminal ileum, cecum, right colon Description of Procedure After informed consent was obtained the patient was taken to the operating room and placed in supine position. After successful intubation a Valdez catheter was placed and the abdomen was sterilely prepped and draped in usual fashion. I began by making a midline incision with a 10 blade scalpel. This was carried down through the soft tissue using cautery. The anterior fascia was opened using cautery. Peritoneum was elevated with hemostats and incised under direct vision using a Metzenbaum scissor. The incision was opened to both poles using cautery. Once in the abdomen we explored starting in the right lower quadrant. The cecum and terminal ileum was completely twisted and was in the left upper quadrant causing a large bowel obstruction. There was some mild ischemia but no infarction. The cecum was massively dilated although not perforated. I was able to manually reduce the volvulus and pull the cecum and terminal ileum out of the incision. I made the decision to perform a right hemicolectomy. I did not feel as though pexing the cecum would be adequate. I began by taking down the right colon along the white line of Toldt up and around the hepatic flexure. We then picked a spot on the transverse colon just proximal to the middle colic vessels and divided this using a TAVIA brown cartridge 60 mm stapler. I then transected the terminal ileum several centimeters proximal to the ileocecal valve again using a TAVIA brown cartridge stapler. The mesentery was taken down using the LigaSure device and the specimen passed off. Bowel clamps were used to clamp the colon as well as small bowel. We then performed a side to side small bowel to transverse colon anastomosis again using a TAVIA brown cartridge 60 mm stapler. The common enterotomy was closed by hand sewing it with 3-0 Monocryl for serosal/mucosal layers followed by 3-0 silk in Lembert fashion. 3- 0 silk crotch stitch was also placed. The anastomosis was widely patent. There was no spillage during this process. At this point we changed our gloves. Because of a large stool burden which was throughout the remainder of the colon particularly in the transverse colon as well as her being diabetic I opted to perform a diverting ileostomy. I did close the mesenteric defect using 2-0 Vicryl in a running fashion. The entire abdomen was thoroughly irrigated with warm irrigation. A circular incision in the right lower quadrant was made with a 15 blade scalpel. Cautery was used to carry this through the soft tissue and a cruciate ligament was made in the anterior fascia. Peritoneum was opened. A Melchor clamp was used and small bowel approximately 1 foot proximal to the anastomosis was pulled out. We then performed a final irrigation of the abdomen. The fascia was closed using 0- looped PDS starting either pole running them and securing them in the midline. Soft tissue was irrigated and skin closed using skin laura. We matured the ileostomy in [place] fashion using 3-0 Monocryl. Stoma bag was placed. Silver dressing was applied to the incision. The patient was awakened extubated and transferred recovery in stable condition. My physician child and youth program assistant was present for the entire case was instrumental in exposure throughout the procedure assisting with the anastomosis ileostomy wound closure and dressing placement. I attest to the content of the Intraoperative Record and any orders documented therein. Any exceptions are noted below.
--- NOTE | 2022-04-16 01:29 | Hospitalist Consultation ---
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: Pt typically takes NPH and novolog, typically takes 27 mph internal volume the morning and 7 of NPH and 3 of log in the evening did take medications this am, will change to basal bolus with calculator however will have 50% of basal rate until the patient takes po calories, will check A1c, Pt typically takes risk factor modifying medication of lisinopril and simvastatin, these will be held until recovery and restarted if BP control is needed, the simvastatin can be held until discharge (3) Contraception management: Pt will be npo and may miss one or two days of contraception but if family brings in medication can restart when taking po (4) Hypercholesterolemia: as mentioned above may hold this med till discharge Plan at this time dvt prevention are scd's History of Present Illness Attending Physician: Kole Alcaal, History of Present Illness 51 F admitted with concern for cecal volvulus on imaging performed to evaluate acute right sided abdominal pain, has not had previous abdominal surgeries, and has a medical history of Type 1 DM and dyslipidemia. Pt taken to the OR and had a exploratory lap, right hemicolectomy and diverting colostomy after a volvulus was found. Medical consultation was requested for perioperative diabetes management, pt was recovering in the OR Allergies Allergy/AdvReac Type Severity Reaction Status Date / Time No Known Allergies Allergy Verified 04/14/22 15:39 Home Medications Medication Instructions Recorded Confirmed Type lancets 30 gauge (Lite Touch #300 ea 11/08/18 04/14/22 Rx Lancets) multivitamin-ferrous 1 tab PO QAM 11/08/18 04/14/22 History fumarate-folic acid 18 mg-400 mcg tablet (Centrum Complete) simvastatin 80 mg tablet 80 mg PO QPM #90 tabs 06/20/21 04/14/22 Rx insulin syringe-needle U-100 0.5 #150 ea 07/24/21 04/14/22 Rx mL 31 gauge x 5/16" (BD Insulin Syringe Ultra-Fine) blood sugar diagnostic (FreeStyle #300 ea 12/24/21 04/14/22 Rx Lite Strips) calcium 600 mg capsule 600 mg PO QAM 04/14/22 04/14/22 History insulin NPH isoph U-100 human 100 27 unit subcut UD 04/14/22 04/14/22 History unit/mL subcutaneous suspension (Novolin N NPH U-100 Insulin isophane) insulin aspart U-100 100 unit/mL 10 unit subcut UD 04/14/22 04/14/22 History subcutaneous solution (Novolog U-100 Insulin aspart) lisinopril 10 mg tablet 10 mg PO QPM 04/14/22 04/14/22 History norgestimate-ethinyl estradiol 1 tab PO QPM #84 tabs 04/14/22 04/14/22 Rx 0.18 mg/0.215mg/0.25mg-35 mcg(28)tablet (Tri-Sprintec (28)) Patient History Medical History (Updated 04/16/22 @ 01:24 by Jono Holguin MD) 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 Brock History of trigger finger Hx of tonsillectomy S/P fine needle aspiration remarkable for hyperplasia Family History Aunt Breast cancer paternal aunt Pancreatic cancer maternal aunt Mother Hypertension Sister Skin cancer Father Myelodysplastic syndrome Bladder cancer Family/Other Breast cancer, Onset Age: 53 maternal cousin Denies family history of Ovarian cancer Prostate cancer Diabetes Depression Heart disease Myocardial infarction Osteoarthritis Lung cancer Colorectal cancer Pulmonary embolism Stroke Social History Smoking Status: Never smoker Hx Alcohol Use: No Hx Substance Use: No Preferred Language: [place]se Communication Ability: Effective Visual Impairment: No Limitations Hearing Ability: Normal 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: No Beliefs That Will Affect Care: None marital status: Current Living Situation: Spouse current occupational status: employed Feels Safe at Home: Yes Dental Care, Regularly: Yes Physical Activity Frequency: 1-2 Times per Week Seatbelt Use: always Sunscreen Use: Yes Assistive Devices: Contacts and Glasses Review of Systems Review of Systems: Moderate distress and fatigue no headache, no visual changes no speech or swallowing issues no chest pain, pressure or palpitations no shortness of breath, cough or wheezes Abdominal pain worse with movement nausea without vomiting no dysuria, hematuria or frequency no focal joint pain or swelling no back pain, CVA tenderness or radicular pain no bruising, bleeding or rashes no focal signs of weakness or numbness or altered sensation no complaints of anxiety or depression.. Physical Exam Physical Exam: The patient appeared well nourished and normally developed. She was seen in recovery she was in some discomfort with 8/10 abdominal pain especially with movement and nausea Vital signs as documented. Head exam is normocephalic atraumatic Neck is without JVD, thyromegaly, or carotid bruits. Lungs are clear to auscultation, respiratory status appears unlabored, no focal loss of breath sounds Cardiac exam, Rhythm is regular.. No murmurs, rubs or gallops. Abdominal exam reveals absent bowel sounds, soft ileostomy in mid abdomen tender to examination Extremities are nonedematous and both pedal pulses are present Neurologic exam is alert and oriented, no focal loss of strength or sensation Skin is without bruises or rashes Psychologically is without concerns for anxiety or depression.. Results & Data Results & Data ([facility]) Vital Signs (Past 12 Hours) Vital Signs Temp Pulse Pulse Resp BP BP Pulse Ox 04/15/22 22:00 91 H 18 154/80 H 99 04/15/22 21:00 94 H 20 112/68 99 04/15/22 19:54 77 20 136/71 100 04/15/22 18:03 97.7 F 95 H 18 143/88 H 98 O2 Del Method 04/15/22 22:00 Room Air 04/15/22 21:00 Room Air 04/15/22 19:54 Room Air 04/15/22 18:03 Room Air PG Care Time/CCT Total # of Minutes Spent Total Time Spent with Patient: Total time spent is greater than 50% in coordination of care (as documented) at patient's floor/unit and/or counseling patient: Coding Level of Care Code 33198 Inpt Consult Level 3 Diagnoses Cecal volvulus K56.2 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
[2022-04-16] MEDS ORDERED: ONDANSETRON INJ 2 MG/ML 2 ML VIAL ONE (01:30)
[2022-04-16] MEDS ORDERED: fentaNYL citrate 100 MCG/2 ML VIAL ONE (01:39)
[2022-04-16] MEDS ORDERED: PROMETHAZINE HCL 6.25 MG in SODIUM CHLORIDE 0.9% 50 ML IV PRN (01:46)
[2022-04-16] MEDS: SODIUM CHLORIDE 0.9% 1000ML 1,000 ML IV SCH ×4 (01:59→21:50)
[2022-04-16] MEDS ORDERED: GLUCOSE 10 TAB/TUBE PO PRN (02:39)
[2022-04-16] MEDS ORDERED: DEXTROSE 50% 50 ML SYRINGE IV PRN (02:39)
[2022-04-16] MEDS ORDERED: GLUCOSE 40% GEL 15 GM TUBE PO PRN (02:39)
[2022-04-16] MEDS ORDERED: GLUCAGON FOR INJ 1 MG VIAL SQ PRN (02:39)
[2022-04-16] MEDS ORDERED: ACETAMINOPHEN 1,000 MG/100 ML VIAL IV PRN (02:39)
--- NOTE | 2022-04-16 02:44 | Anesthesiology Progress Note ---
Date of Service April 16, 2022 Anesthesia Post Procedure Vital Signs Vital Signs: Temp Pulse Pulse Resp BP BP Pulse Ox 04/16/22 02:42 98.1 F 97 H 18 117/68 96 04/16/22 02:25 98.1 F 83 18 106/50 L 96 04/16/22 02:10 98.1 F 83 18 114/45 L 97 04/16/22 02:00 97.7 F 77 18 125/51 L 96 04/16/22 01:50 97.7 F 78 20 117/56 L 97 04/16/22 01:40 97.9 F 85 20 128/65 100 04/16/22 01:30 97.9 F 76 16 125/65 100 04/16/22 01:20 97.9 F 72 18 136/72 100 04/16/22 01:10 97.5 F L 86 18 124/70 100 04/15/22 22:00 91 H 18 154/80 H 99 04/15/22 21:00 94 H 20 112/68 99 04/15/22 19:54 77 20 136/71 100 04/15/22 18:03 97.7 F 95 H 18 143/88 H 98 O2 Del Method O2 Flow Rate 04/16/22 02:42 Room Air 04/16/22 02:25 Room Air 04/16/22 02:10 Room Air 04/16/22 02:00 Room Air 04/16/22 01:50 Room Air 04/16/22 01:40 Nasal Cannula 2 04/16/22 01:30 Nasal Cannula 2 04/16/22 01:20 Nasal Cannula 4 04/16/22 01:10 High Flow Nasal Cannula 6 04/15/22 22:00 Room Air 04/15/22 21:00 Room Air 04/15/22 19:54 Room Air 04/15/22 18:03 Room Air Pain Intensity Abdomen: Pain Intensity: 2 Transfer of Care Handoff Completed per policy Notes Mental Status: alert / awake / arousable and participated in evaluation Patient Amnestic to Procedure: Yes Nausea / Vomiting: adequately controlled Pain: adequately controlled Airway Patency, RR, SpO2: stable & adequate BP & HR: stable & adequate Hydration State: stable & adequate Anesthetic Complications: no major complications apparent and Pt Satisfied with anesthetic care
[2022-04-16] MEDS: ONDANSETRON INJ 2 MG/ML 2 ML VIAL IV PRN ×2 (02:48→13:29)
[2022-04-16] MEDS: PIPERACILLIN/TAZOBACTAM 3.375 GM in DEXTROSE 5% 100 ML IV SCH ×3 (03:08→20:07)
[2022-04-16] MEDS: MoRPHine SULFATE 4 MG/ML 1 ML CARP\\VIAL IV PRN ×3 (04:39→17:58)
[2022-04-16] MEDS ORDERED: PROMETHAZINE HCL 6.25 MG in SODIUM CHLORIDE 0.9% 50 ML IV STA (04:47)
[2022-04-16] MEDS: INSULIN ASPART PER UNIT SC SCH ×4 (06:03→23:41)
[2022-04-16 06:24] LABS: Hematocrit (blood only) 43.2 % (34.1-44.9); Hemoglobin 14.6 g/dl (12.0-16.0); Mean Corpuscular Hemoglobin 31.8 pg (25.0-34.0); Mean Corpuscular Hgb Conc 33.8 g/dL (32.0-36.0); Mean Corpuscular Volume 94.1 fL (80.0-100.0); Platelet Count 209 K/uL (130-400); RDW Coefficient of Variation 11.1 % (11.5-14.5); RDW Standard Deviation 38.3 fL (36.4-46.3); Red Blood Count 4.59 M/uL (3.93-5.22); White Blood Count 20.82 K/ul (4.8-10.8)
[2022-04-16 06:44] LABS: Basophils # (auto) 0.02 K/uL (0-0.2); Basophils % (auto) 0.1 %; Echinocytes 2+; Immature Granulocytes # (auto) 0.29 K/uL (0.00-0.02); Immature Granulocytes % (auto) 1.4 %; Lymphocytes # (auto) 0.55 K/uL (1.2-3.4); Lymphocytes % (auto) 2.6 %; Monocytes # (auto) 1.14 K/uL (0.24-0.82); Monocytes % (auto) 5.5 %; Neutrophils # (auto) 18.82 K/uL (1.4-6.5); Neutrophils % (auto) 90.4 %; Tear Drop Cells 1+
[2022-04-16 06:53] LABS: Anion Gap 8 (3-11); BUN Creatinine Ratio 12.9 (10-20); Blood Urea Nitrogen 9 mg/dl (6-23); Calcium 7.7 mg/dl (8.5-10.1); Carbon Dioxide 21 mmol/L (21-32); Chloride 105 mmol/L (98-107); Creatinine Clr Calc Pharmacy 86.4 ml/min; Est GFR (African American) 117.9 ml/min; Est GFR (Non-African American) 101.7 ml/min; Glucose 245 mg/dl (70-99(Fasting)); Sodium 134 mmol/L (136-145)
[2022-04-16 07:11] LABS: Estimated Average Glucose 137 mg/dl; Hemoglobin A1C 6.4 % (4.5-5.6)
--- NOTE | 2022-04-16 07:54 | Communication Note ---
Date of Service: April 16, 2022 Called by RN at approx. 4:30 am that pt. was having persistent nausea. I visited her at bedside within 10 minutes. On exam her abdomen was soft with minimal distention. She noted some nausea without current vomiting. RN notes she previous recieved 6.25 mg phnergan at approx. 1:50 am and 4 mg zofan at approx 2:45 am. At this time I suspect nausea may be related to anesthesia as pt. noted she has had this experience with prior surgeries. Instructed RN that an additional 6.25 mg phenergan may be given or additonal 4 mg zofran may be given early.
[2022-04-16] MEDS: LANTUS PER UNIT CHARGE SQ SCH ×2 (08:42→21:43)
--- NOTE | 2022-04-16 09:27 | Hospitalist Progress Note ---
Date of Service April 16, 2022 Assessment & Plan (1) Cecal volvulus: Plan: Admitted for acute RLQ abdominal pain, imaging concerning for cecal volvulus or an internal hernia, admitted by surgical team. Interestingly she was to be set up for her first c-scope this upcoming Thursday. POD# 1 s/p Exploratory Lapratomy, Right hemicolectomy, Diverting Ileostomy(Not Applicable) - Kole Alcala, . EBL 10cc Continues Zosyn IV Continues IVF NS @ 125cc/hr -- discussed with primary service, they would like to keep rate at 125cc/hr for today, ok to give patient ice chips/sips but otherwise keep NPO Pain control/antiemetics/PT/OT/DVT prophylaxis per primary service added Phenergan for antiemetics with improvement reported primary service added IV tylenol for baseline control WBC elevation 20.8k, likely reactive from surgery as well as nausea/vomiting after surgery (felt related to anesthetics) Afebrile but temp 37.4C Added incentive spirometer to prevent low grade temp/atelectasis Added Mag to labs, 1.7 -- 1gm IV ordered, consider additional dose to keep >2 DVT Prophylaxis -- SCDs, no chemical -- defer to primary service once bleeding risk stabilized. 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 Takes 7 novolin and 3 novolog in the evening. 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 Please call with any questions/concerns. Admission and Anticipated Discharge Date Admission Date: April 16, 2022 Supervising Physician Co-Signing Physician Notes PA Supervision Note: I did not personally see or examine the patient today, but I verified all torres points of JUNIOR Lewis's assessment and plan with the following exceptions/additions: None Subjective INITIAL CONSULT DONE AFTER MIDNIGHT -- NO BILL matti around 11am with at bedside had some increasing nausea with distension overnight, states feeling better with the medication last provided (phenergan). Discussed can continue/increase if needed. Patient reports pain much more tolerable, however tender on palpation. Concerns about straining to pass gas, reassurance provided. Ostomy able to re verse in future as stated discussed with surgeon and himself last night. Has not been evaluated yet this morning. Prior issues w/ anesthesia -- discussed scopolamine patch in future if any is sues. Wondering when she will be able to have some liquids. Discussed will have to check with surgery but asked RN to provide biotin mouth spray in the meantime. Encouraged ambulation with spouse as able to get her bowels moving. Wound RN on consult for assistance with ostomy/changes/supplies. CM to follow. Of note, was to have her first c-scope on Thursday, she chuckles noting that will need to be cancelled. No fever/chills, chest pain, shortness of breath or other issue currently at this time. Review of Systems Review of Systems: All systems reviewed & are unremarkable except as noted in HPI & below Physical Exam Physical Exam: General: WD/WN female sitting up in bed, at bedside, NAD but mildly uncomfortable with movements HEENT: head normocephalic, atraumatic, mm slight dry, trachea midline Resp: CTAb, slightly diminished in the bases, no w/c, on room air CV: regular, tachycardic (rate 102bpm), no m/r/g, no pitting edema/calf tenderness GI: soft, hypoactive BS, significant generalized tenderness to palpation across abdomen, no rigidity, voluntary guarding midline dressing c/d/i, ostomy beefy red, no drainage/purulent material, NO output : paul draining yellow urine MSK/Neuro: no focal deficit Psych: alert, oriented to person/place/time, tearful about ostomy at times Results & Data Results & Data ([facility]) Vital Signs (Past 12 Hours) Vital Signs Temp Pulse Pulse Resp BP Pulse Ox O2 Del Method 04/16/22 07:25 37.3 C 100 H 16 120/69 94 Room Air 04/16/22 04:32 100 H 14 114/73 96 Room Air 04/16/22 03:04 37.1 C 91 H 18 111/61 93 Room Air 04/16/22 05:24 36.6 C 100 H 14 111/69 95 Room Air 04/16/22 03:42 101 H 14 117/68 93 Room Air 04/16/22 02:42 36.7 C 97 H 18 117/68 96 Room Air 04/16/22 02:25 36.7 C 83 18 106/50 L 96 Room Air 04/16/22 02:10 36.7 C 83 18 114/45 L 97 Room Air 04/16/22 02:00 36.5 C 77 18 125/51 L 96 Room Air 04/16/22 01:50 36.5 C 78 20 117/56 L 97 Room Air 04/16/22 01:40 36.6 C 85 20 128/65 100 Nasal Cannula 04/16/22 01:30 36.6 C 76 16 125/65 100 Nasal Cannula 04/16/22 01:20 36.6 C 72 18 136/72 100 Nasal Cannula 04/16/22 01:10 36.4 C L 86 18 124/70 100 High Flow Nasal Cannula 04/15/22 22:00 91 H 18 154/80 H 99 Room Air O2 Flow Rate 04/16/22 07:25 04/16/22 04:32 04/16/22 03:04 04/16/22 05:24 04/16/22 03:42 04/16/22 02:42 04/16/22 02:25 04/16/22 02:10 04/16/22 02:00 04/16/22 01:50 04/16/22 01:40 2 04/16/22 01:30 2 04/16/22 01:20 4 04/16/22 01:10 6 04/15/22 22:00 Laboratory Results 04/16/22 04/16/22 04/16/22 Range/Units 07:07 05:57 05:52 WBC (4.8-10.8) K/ul RBC (3.93-5.22) M/uL Hgb (12.0-16.0) g/dl Hct (34.1-44.9) % MCV (80.0-100.0) fL MCH (25.0-34.0) pg MCHC (32.0-36.0) g/dL RDW Std Deviation (36.4-46.3) fL RDW Coeff of Annika (11.5-14.5) % Plt Count (130-400) K/uL MPV (9.4-12.3) fL Immature Gran % (Auto) % Neut % (Auto) % Lymph % (Auto) % Childress % (Auto) % Eos % (Auto) % Baso % (Auto) % Neut # (Auto) (1.4-6.5) K/uL Lymph # (Auto) (1.2-3.4) K/uL [place] # (Auto) (0.24-0.82) K/uL Eos # (Auto) (0-0.50) K/uL Baso # (Auto) (0-0.2) K/uL Immature Gran # (Auto) (0.00-0.02) K/uL Tear Drop Cells Echinocytes Sodium (136-145) mmol/L Potassium 4.4 (3.5-5.1) mmol/L Chloride (98-107) mmol/L Carbon Dioxide (21-32) mmol/L Anion Gap (3-11) BUN (6-23) mg/dl Creatinine (0.6-1.2) mg/dl Est Cr Clr Drug Dosing ml/min Est GFR ( Amer) ml/min Est GFR (Non-Af Amer) ml/min BUN/Creatinine Ratio (10-20) Glucose (70-99(Fasting)) mg/dl POC Glucose 211 H (70-99) mg/dl Estimat Average Glucose 137 mg/dl Hemoglobin A1c 6.4 H (4.5-5.6) % Calcium (8.5-10.1) mg/dl Total Bilirubin (0.2-1.0) mg/dl AST (13-39) U/L ALT (7-52) U/L Alkaline Phosphatase (34-104) U/L Total Protein (6.0-8.3) gm/dl Albumin (3.4-5.0) gm/dl Globulin (2.5-4.0) gm/dl Albumin/Globulin Ratio (0.9-2) Lipase (11-82) U/L Urine Color Urine Appearance (Clear) Urine pH (4.5-7.5) Ur Specific [place] (1.000-1.030) Urine Protein (Negative) Urine Glucose (UA) (Negative) Urine Ketones (Negative) Urine Blood (Negative) Urine Nitrite (Negative) Urine Bilirubin (Negative) Urine Urobilinogen (Negative) Ur Leukocyte Esterase (Negative) Urine WBC (Auto) (0-5) /hpf Urine RBC (Auto) (0-4) /hpf U Hyaline Cast (Auto) (0-5) /lpf U Epithel Cells (Auto) (0-5) /lpf Urine Bacteria (Auto) (Negative) POC Ur Test (NEG) SARS-CoV-2, RNA, NAAT (NEGATIVE) 04/16/22 04/16/22 04/16/22 Range/Units 05:52 05:52 01:24 WBC 20.82 H D (4.8-10.8) K/ul RBC 4.59 (3.93-5.22) M/uL Hgb 14.6 (12.0-16.0) g/dl Hct 43.2 (34.1-44.9) % MCV 94.1 (80.0-100.0) fL MCH 31.8 (25.0-34.0) pg MCHC 33.8 (32.0-36.0) g/dL RDW Std Deviation 38.3 (36.4-46.3) fL RDW Coeff of Annika 11.1 L (11.5-14.5) % Plt Count 209 (130-400) K/uL MPV 10.0 (9.4-12.3) fL Immature Gran % (Auto) 1.4 % Neut % (Auto) 90.4 % Lymph % (Auto) 2.6 % Child[place] % (Auto) 5.5 % Eos % (Auto) 0.0 % Baso % (Auto) 0.1 % Neut # (Auto) 18.82 H (1.4-6.5) K/uL Lymph # (Auto) 0.55 L (1.2-3.4) K/uL [place] # (Auto) 1.14 H (0.24-0.82) K/uL Eos # (Auto) 0.00 (0-0.50) K/uL Baso # (Auto) 0.02 (0-0.2) K/uL Immature Gran # (Auto) 0.29 H (0.00-0.02) K/uL Tear Drop Cells 1+ Echinocytes 2+ Sodium 134 L (136-145) mmol/L Potassium TNP (3.5-5.1) mmol/L Chloride 105 (98-107) mmol/L Carbon Dioxide 21 (21-32) mmol/L Anion Gap 8 (3-11) BUN 9 (6-23) mg/dl Creatinine 0.70 (0.6-1.2) mg/dl Est Cr Clr Drug Dosing 86.4 ml/min Est GFR ( Amer) 117.9 ml/min Est GFR (Non-Af Amer) 101.7 ml/min BUN/Creatinine Ratio 12.9 (10-20) Glucose 245 H (70-99(Fasting)) mg/dl POC Glucose 143 H (70-99) mg/dl Estimat Average Glucose mg/dl Hemoglobin A1c (4.5-5.6) % Calcium 7.7 L (8.5-10.1) mg/dl Total Bilirubin (0.2-1.0) mg/dl AST (13-39) U/L ALT (7-52) U/L Alkaline Phosphatase (34-104) U/L Total Protein (6.0-8.3) gm/dl Albumin (3.4-5.0) gm/dl Globulin (2.5-4.0) gm/dl Albumin/Globulin Ratio (0.9-2) Lipase (11-82) U/L Urine Color Urine Appearance (Clear) Urine pH (4.5-7.5) Ur Specific [place] (1.000-1.030) Urine Protein (Negative) Urine Glucose (UA) (Negative) Urine Ketones (Negative) Urine Blood (Negative) Urine Nitrite (Negative) Urine Bilirubin (Negative) Urine Urobilinogen (Negative) Ur Leukocyte Esterase (Negative) Urine WBC (Auto) (0-5) /hpf Urine RBC (Auto) (0-4) /hpf U Hyaline Cast (Auto) (0-5) /lpf U Epithel Cells (Auto) (0-5) /lpf Urine Bacteria (Auto) (Negative) POC Ur Test (NEG) SARS-CoV-2, RNA, NAAT (NEGATIVE) 04/15/22 04/15/22 04/15/22 Range/Units 23:52 21:45 19:15 WBC (4.8-10.8) K/ul RBC (3.93-5.22) M/uL Hgb (12.0-16.0) g/dl Hct (34.1-44.9) % MCV (80.0-100.0) fL MCH (25.0-34.0) pg MCHC (32.0-36.0) g/dL RDW Std Deviation (36.4-46.3) fL RDW Coeff of Annika (11.5-14.5) % Plt Count (130-400) K/uL MPV (9.4-12.3) fL Immature Gran % (Auto) % Neut % (Auto) % Lymph % (Auto) % [place] % (Auto) % Eos % (Auto) % Baso % (Auto) % Neut # (Auto) (1.4-6.5) K/uL Lymph # (Auto) (1.2-3.4) K/uL [place] # (Auto) (0.24-0.82) K/uL Eos # (Auto) (0-0.50) K/uL Baso # (Auto) (0-0.2) K/uL Immature Gran # (Auto) (0.00-0.02) K/uL Tear Drop Cells Echinocytes Sodium 138 (136-145) mmol/L Potassium 4.1 (3.5-5.1) mmol/L Chloride 102 (98-107) mmol/L Carbon Dioxide 30 (21-32) mmol/L Anion Gap 6 (3-11) BUN 9 (6-23) mg/dl Creatinine 0.72 (0.6-1.2) mg/dl Est Cr Clr Drug Dosing 84.0 ml/min Est GFR ( Amer) 114.0 ml/min Est GFR (Non-Af Amer) 98.3 ml/min BUN/Creatinine Ratio 12.5 (10-20) Glucose 75 (70-99(Fasting)) mg/dl POC Glucose 126 H (70-99) mg/dl Estimat Average Glucose mg/dl Hemoglobin A1c (4.5-5.6) % Calcium 9.0 (8.5-10.1) mg/dl Total Bilirubin 0.5 (0.2-1.0) mg/dl AST 17 (13-39) U/L ALT 15 (7-52) U/L Alkaline Phosphatase 94 (34-104) U/L Total Protein 7.2 (6.0-8.3) gm/dl Albumin 4.3 (3.4-5.0) gm/dl Globulin 2.9 (2.5-4.0) gm/dl Albumin/Globulin Ratio 1.5 (0.9-2) Lipase 11 (11-82) U/L Urine Color Urine Appearance (Clear) Urine pH (4.5-7.5) Ur Specific [place] (1.000-1.030) Urine Protein (Negative) Urine Glucose (UA) (Negative) Urine Ketones (Negative) Urine Blood (Negative) Urine Nitrite (Negative) Urine Bilirubin (Negative) Urine Urobilinogen (Negative) Ur Leukocyte Esterase (Negative) Urine WBC (Auto) (0-5) /hpf Urine RBC (Auto) (0-4) /hpf U Hyaline Cast (Auto) (0-5) /lpf U Epithel Cells (Auto) (0-5) /lpf Urine Bacteria (Auto) (Negative) POC Ur Test (NEG) SARS-CoV-2, RNA, NAAT NEGATIVE (NEGATIVE) 04/15/22 04/15/22 04/15/22 Range/Units 19:15 19:09 19:05 WBC 10.33 (4.8-10.8) K/ul RBC 4.66 (3.93-5.22) M/uL Hgb 15.2 (12.0-16.0) g/dl Hct 44.0 (34.1-44.9) % MCV 94.4 (80.0-100.0) fL MCH 32.6 (25.0-34.0) pg MCHC 34.5 (32.0-36.0) g/dL RDW Std Deviation 38.8 (36.4-46.3) fL RDW Coeff of Annika 11.4 L (11.5-14.5) % Plt Count 236 (130-400) K/uL MPV 10.2 (9.4-12.3) fL Immature Gran % (Auto) 0.3 % Neut % (Auto) 68.4 % Lymph % (Auto) 23.0 % [place] % (Auto) 6.9 % Eos % (Auto) 1.0 % Baso % (Auto) 0.4 % Neut # (Auto) 7.07 H (1.4-6.5) K/uL Lymph # (Auto) 2.38 (1.2-3.4) K/uL [place] # (Auto) 0.71 (0.24-0.82) K/uL Eos # (Auto) 0.10 (0-0.50) K/uL Baso # (Auto) 0.04 (0-0.2) K/uL Immature Gran # (Auto) 0.03 H (0.00-0.02) K/uL Tear Drop Cells Echinocytes Sodium (136-145) mmol/L Potassium (3.5-5.1) mmol/L Chloride (98-107) mmol/L Carbon Dioxide (21-32) mmol/L Anion Gap (3-11) BUN (6-23) mg/dl Creatinine (0.6-1.2) mg/dl Est Cr Clr Drug Dosing ml/min Est GFR ( Amer) ml/min Est GFR (Non-Af Amer) ml/min BUN/Creatinine Ratio (10-20) Glucose (70-99(Fasting)) mg/dl POC Glucose (70-99) mg/dl Estimat Average Glucose mg/dl Hemoglobin A1c (4.5-5.6) % Calcium (8.5-10.1) mg/dl Total Bilirubin (0.2-1.0) mg/dl AST (13-39) U/L ALT (7-52) U/L Alkaline Phosphatase (34-104) U/L Total Protein (6.0-8.3) gm/dl Albumin (3.4-5.0) gm/dl Globulin (2.5-4.0) gm/dl Albumin/Globulin Ratio (0.9-2) Lipase (11-82) U/L Urine Color Yellow Urine Appearance Cloudy A (Clear) Urine pH >= 9.0 H (4.5-7.5) Ur Specific [place] 1.010 (1.000-1.030) Urine Protein Negative (Negative) Urine Glucose (UA) Negative (Negative) Urine Ketones Negative (Negative) Urine Blood Negative (Negative) Urine Nitrite Negative (Negative) Urine Bilirubin Negative (Negative) Urine Urobilinogen Negative (Negative) Ur Leukocyte Esterase Trace H (Negative) Urine WBC (Auto) 1-5 (0-5) /hpf Urine RBC (Auto) 5-10 H (0-4) /hpf U Hyaline Cast (Auto) 1-5 (0-5) /lpf U Epithel Cells (Auto) >30 H (0-5) /lpf Urine Bacteria (Auto) Negative (Negative) POC Ur Test NEG (NEG) SARS-CoV-2, RNA, NAAT (NEGATIVE) Diagnostic Findings Abdomen/Pelvis CT 04/15/22 20:[address] WITH IV CONTRAST CT DOSE: 307.26 mGy.cm HISTORY: Bloating with acute mid and right lower quadrant abdominal pain. No leukocytosis. rlq pain TECHNIQUE: Multiaxial CT images of the abdomen and pelvis were performed following the IV administration of 85 cc of Optiray, A dose lowering technique was utilized adhering to the principles of ALARA. COMPARISON STUDY: None. FINDINGS: Clear lung bases. No pneumatosis or pneumoperitoneum. Unremarkable spleen, pancreas, gallbladder, adrenal glands and liver. Patency of the hepatic and portal veins. Unremarkable kidneys. No hydronephrosis. Mild urinary bladder wall thickening with partial distention. Retroflexed uterus. There is heterogeneous thickening of the fundal endometrium with 4 cm ill-defined lesion demonstrating a subcentimeter calcification. 3.7 cm left ovarian cyst. Mild atherosclerosis of the aorta. No lymphadenopathy. There is retained enteric contrast within the terminal ileum which crosses left to the midline. The ileocecal valve is present within the left midabdomen. Moderate gaseous distention of the cecum measuring up to 7.3 cm. There is mild swirling within the right mid lower abdominal mesentery with narrowing of the ascending colon. Mild associated intraluminal edema within this distribution. The appendix is not definitively seen. Unremarkable soft tissues. No acute fracture. IMPRESSION: 1. There is swirling within the abdominal right lower quadrant mesentery with the cecum displaced within the left mid abdomen resulting in narrowing of the ascending colon. There is moderate gaseous distention of the cecum and splenic flexure. Findings raise the possibility of a possible internal hernia or cecal volvulus with mild mesenteric edema and trace ascites within the right midabdomen. 2. No small bowel obstruction or pneumoperitoneum. 3. Probable fibroid of the uterine fundus. 4. 3.7 cm left ovarian cyst. ACT 112: Negative or not required by law. The above report was generated using voice recognition software. It may contain grammatical, syntax or spelling errors. Electronically signed by: Ramo Campos M.D. 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
--- NOTE | 2022-04-16 12:07 | Surgery Progress Note ---
Date of Service April 16, 2022 Assessment & Plan (1) Cecal volvulus: Plan: Postoperative day 1 from a right hemicolectomy Ileostomy viable Some the pain is probably postsurgical but some is probably from severe constipation which we noted intraoperatively. We will keep her [place] for another 24 hours She can have ice chips but I do not believe she is ready for clear liquids yet. She is at high risk for ileus Appreciate medicine's assistance with her medical issues Admission and Anticipated Discharge Date Admission Date: April 16, 2022 Subjective Patient seen. Having primarily left mid to left lower quadrant pain. She is having nausea overnight but this has dramatically improved with medication. Physical Exam Physical Exam: In moderate distress secondary to pain. Morphine just given several minutes ago Abdomen is soft. Ileostomy is viable. No output yet. Results & Data ([facility]) Vital Signs (Past 12 Hours) Vital Signs Temp Pulse Pulse Resp BP Pulse Ox O2 Del Method 04/16/22 11:34 37.4 C 101 H 15 117/66 95 Room Air 04/16/22 07:25 37.3 C 100 H 16 120/69 94 Room Air 04/16/22 04:32 100 H 14 114/73 96 Room Air 04/16/22 03:04 37.1 C 91 H 18 111/61 93 Room Air 04/16/22 05:24 36.6 C 100 H 14 111/69 95 Room Air 04/16/22 03:42 101 H 14 117/68 93 Room Air 04/16/22 02:42 36.7 C 97 H 18 117/68 96 Room Air 04/16/22 02:25 36.7 C 83 18 106/50 L 96 Room Air 04/16/22 02:10 36.7 C 83 18 114/45 L 97 Room Air 04/16/22 02:00 36.5 C 77 18 125/51 L 96 Room Air 04/16/22 01:50 36.5 C 78 20 117/56 L 97 Room Air 04/16/22 01:40 36.6 C 85 20 128/65 100 Nasal Cannula 04/16/22 01:30 36.6 C 76 16 125/65 100 Nasal Cannula 04/16/22 01:20 36.6 C 72 18 136/72 100 Nasal Cannula 04/16/22 01:10 36.4 C L 86 18 124/70 100 High Flow Nasal Cannula O2 Flow Rate 04/16/22 11:34 04/16/22 07:25 04/16/22 04:32 04/16/22 03:04 04/16/22 05:24 04/16/22 03:42 04/16/22 02:42 04/16/22 02:25 04/16/22 02:10 04/16/22 02:00 04/16/22 01:50 04/16/22 01:40 2 04/16/22 01:30 2 04/16/22 01:20 4 04/16/22 01:10 6 PG Care Time/CCT Total # of Minutes Spent Total Time Spent with Patient: Total time spent is greater than 50% in coordination of care (as documented) at patient's floor/unit and/or counseling patient: Coding Level of Care Code None Diagnoses Cecal volvulus K56.2
[2022-04-16] MEDS ORDERED: Nursing to Pharmacy Communication SCH (12:15)
[2022-04-16] MEDS: ACETAMINOPHEN 1,000 MG/100 ML VIAL IV SCH ×2 (12:24→19:49)
[2022-04-16] MEDS ORDERED: MAGNESIUM SULFATE / D5W 1 GM/100 ML BAG IV ONE (12:47)
[2022-04-17] MEDS: MoRPHine SULFATE 4 MG/ML 1 ML CARP\\VIAL IV PRN ×2 (02:59→08:20)
[2022-04-17] MEDS: ONDANSETRON INJ 2 MG/ML 2 ML VIAL IV PRN ×3 (03:02→16:36)
[2022-04-17] MEDS: ACETAMINOPHEN 1,000 MG/100 ML VIAL IV SCH ×3 (03:04→20:14)
[2022-04-17] MEDS: PIPERACILLIN/TAZOBACTAM 3.375 GM in DEXTROSE 5% 100 ML IV SCH ×3 (03:36→21:00)
[2022-04-17] MEDS: SODIUM CHLORIDE 0.9% 1000ML 1,000 ML IV SCH ×3 (05:54→21:08)
[2022-04-17] MEDS: INSULIN ASPART PER UNIT SC SCH ×4 (06:02→23:33)
[2022-04-17] MEDS: LANTUS PER UNIT CHARGE SQ SCH ×2 (08:21→21:08)
--- NOTE | 2022-04-17 08:41 | Hospitalist Progress Note ---
Date of Service April 17, 2022 Assessment & Plan (1) Cecal volvulus: Plan: Admitted for acute RLQ abdominal pain, imaging concerning for cecal volvulus or an internal hernia, admitted by surgical team. Interestingly she was to be set up for her first c-scope this upcoming Thursday. POD# 2 s/p Exploratory Lapratomy, Right hemicolectomy, Diverting Ileostomy(Not Applicable) - Kole Alcala, DO. EBL 10cc Continues Zosyn IV abx NS @ 125cc/hr Pain control/antiemetics -- toradol x 1 by surgery, changed morphine to dilaudid as needed WBC elevation post op likely from surgery and n/v, improved on repeat Had been afebrile except temp 37.4C day prior, likely atelectasis and had not been given incentive spirometer This afternoon w/ temp 38.7C, HR 115bpm (sinus tachy), BP 109/55 --> Blood cultures added --> checked UA/CXR/KUB -- KUB w/ ileus, rec'd to continue NPO (was given sips this morning) -- CXR w/ patchy L lung base density, no vomiting/aspiration or cough/congestion. Incentive spirometer as above and monitor although temp appeared a little high to be just atelectasis. If needing to cover for HAP, need to add Doxy to abx regimen Patient reported feeling better this evening, had been seen by Dr Alcala and reported no concerns for abdominal infection. 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 Takes 7 novolin and 3 no volog in the evening. DOES NOT HAVE A PUMP Typically on lisinopril, simvastatin for prevention ISS while inpatient, glargine 6u BID Tightened ISS, with close note to monitor for any hypoglycemia given PCP noted during wellness exam hx hypoglycemic episodes in the past have varied from confusion/syncope/seizures BSG acceptable. 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 KUB w/ ileus -- NPO CXR -- left lung base patchy density -- atelectasis or developing pneumonia. Had not been given incentive spirometer until today (ordered yesterday) -- monitor on repeat exams Hospitalist service will follow along Admission and Anticipated Discharge Date Admission Date: April 16, 2022 Supervising Physician Co-Signing Physician Notes PA Supervision Note: I did not personally see or examine the patient today, but I verified all torres points of JUNIOR Lewis's assessment and plan with the following exceptions/additions: None Subjective eval this morning has not really been out of bed at all, was going to this morning but ended up with some nausea and going to attempt later got a dose of antiemetics this morning (reviewed, got zofran). Discussed Phenergan available and more effective yesterday and to let us know. No fever/chills/chest pain, no shortness of breath (except from splinting with abdominal pain). Ordered incentive spirometer yesterday to prevent atelectasis No emesis. Having some liquid output from ostomy. Still having decent amount of pain, tylenol helping, morphine not so much. Per surgery, going to order couple doses of toradol. Ok for some clear liquids, patient primarily thirsty. Pending ambulation, possible d/c paul later today. Review of Systems Review of Systems: All systems reviewed & are unremarkable except as noted in HPI & below Physical Exam Physical Exam: General: WD/WN female laying in bed, surgical PA at bedside, NAD but reported some nausea not too long ago HEENT: head normocephalic, atraumatic, mm DRY, trachea midline Resp: CTAb, slightly diminished in the bases with associated crackles (asked RN to provide incentive spirometer), on room air CV: regular, tachycardic (rate 102bpm), no m/r/g, no pitting edema/calf tenderness GI: soft, hypoactive BS, generalized tenderness to palpation around incision, dressing c/d/i to midline, ostomy with liquid darkened stool output, ostomy beefy red/no drainage around, voluntary guarding : paul draining clear yellow urine MSK/Neuro: no focal deficit Psych: alert, oriented to person/place/time Results & Data Results & Data ([facility]) Vital Signs (Past 12 Hours) Vital Signs Temp Pulse Resp BP Pulse Ox O2 Del Method 04/17/22 07:34 37.0 C 99 H 14 114/66 95 Room Air 04/17/22 03:34 37.1 C 105 H 16 112/61 93 Room Air 04/16/22 22:07 37.5 C 102 H 16 122/65 94 Room Air Laboratory Results 04/17/22 04/16/22 04/16/22 Range/Units 05:57 23:36 21:46 POC Glucose 170 H 218 H 190 H (70-99) mg/dl Magnesium (1.7-2.4) mg/dl 04/16/22 04/16/22 04/16/22 Range/Units 17:47 12:12 07:07 POC Glucose 201 H 205 H (70-99) mg/dl Magnesium 1.7 (1.7-2.4) mg/dl PG Care Time/CCT Total # of Minutes Spent Total Time Spent with Patient: Total time spent is greater than 50% in coordination of care (as documented) at patient's floor/unit and/or counseling patient: Coding Level of Care Code 21143 Subseq Hosp Care Lvl 3 Diagnoses Cecal volvulus K56.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
[2022-04-17 09:04] LABS: Basophils # (auto) 0.03 K/uL (0-0.2); Basophils % (auto) 0.2 %; Eosinophils # (auto) 0.07 K/uL (0-0.50); Eosinophils % (auto) 0.5 %; Hematocrit (blood only) 40.3 % (34.1-44.9); Hemoglobin 13.5 g/dl (12.0-16.0); Immature Granulocytes # (auto) 0.06 K/uL (0.00-0.02); Immature Granulocytes % (auto) 0.4 %; Lymphocytes # (auto) 1.39 K/uL (1.2-3.4); Lymphocytes % (auto) 9.5 %; Mean Corpuscular Hemoglobin 32.1 pg (25.0-34.0); Mean Corpuscular Hgb Conc 33.5 g/dL (32.0-36.0); Mean Corpuscular Volume 95.7 fL (80.0-100.0); Mean Platelet Volume 10.3 fL (9.4-12.3); Monocytes # (auto) 0.86 K/uL (0.24-0.82); Monocytes % (auto) 5.9 %; Neutrophils # (auto) 12.17 K/uL (1.4-6.5); Neutrophils % (auto) 83.5 %; Platelet Count 189 K/uL (130-400); RDW Coefficient of Variation 11.5 % (11.5-14.5); RDW Standard Deviation 40.2 fL (36.4-46.3); Red Blood Count 4.21 M/uL (3.93-5.22); White Blood Count 14.58 K/ul (4.8-10.8)
[2022-04-17 09:29] LABS: Est GFR (African American) 122.1 ml/min; Est GFR (Non-African American) 105.3 ml/min; Magnesium 1.8 mg/dl (1.7-2.4); Potassium 4.7 mmol/L (3.5-5.1)
[2022-04-17] MEDS ORDERED: KETOROLAC TROMETHAMINE 15 MG/ML VIAL IV ONE (10:31)
--- NOTE | 2022-04-17 10:33 | Surgery Progress Note ---
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 Will try a dose of toradol and see if this helps, if not may consider changing morphine to dilaudid for pain control Will start prophylactic lovenox Incisions okay, some bloody drainage from umbilicus, will monitor. Change dressing today (4x4/ABD/Tape) Continue IV abx Consider clears later today if nausea improves Making good urine, if does well with getting OOB today will plan on d/c paul Appreciate medicine assistance with patient pt feeling ok. currently no nausea. had some earlier. low grade temp x 1. likely atelectasis. will give sips clears. ( pt at high risk for ileus) d/c paul change morphine to dilaudid. ambulate today Admission and Anticipated Discharge Date Admission Date: April 16, 2022 Subjective Patient doing okay. Having a little more abdominal discomfort today, she is unsure if gas bubbles/etc. Some nausea, no emesis. Physical Exam Physical Exam: awake/alert, no distress Gastrointestinal (Abdomen): Inspection/Auscultation: + abdominal surgical incision (some bloody drainage around umbilicus, otherwise c/d/i with laura) Percussion/Palpation: + abdomen tender (expected tyler incisional discomfort) and abdomen soft ostomy viable, with some liquid stool and air in bag Results & Data ([facility]) Vital Signs (Past 12 Hours) Vital Signs Temp Pulse Resp BP Pulse Ox O2 Del Method 04/17/22 07:34 37.0 C 99 H 14 114/66 95 Room Air 04/17/22 03:34 37.1 C 105 H 16 112/61 93 Room Air PG Care Time/CCT Total # of Minutes Spent Total Time Spent with Patient: Total time spent is greater than 50% in coordination of care (as documented) at patient's floor/unit and/or counseling patient: Coding Level of Care Code None Diagnoses Cecal volvulus K56.2
[2022-04-17] MEDS: ENOXAPARIN INJ 40 MG/0.4 ML SYR SQ SCH (10:53)
[2022-04-17] MEDS: PROMETHAZINE HCL 12.5 MG in SODIUM CHLORIDE 0.9% 50 ML IV PRN ×2 (11:13→18:22)
[2022-04-17 12:16] LABS: Appearance Urine Clear (Clear); Bacteria Urine Automated Negative (Negative); Bilirubin Urine Negative (Negative); Blood Urine 2+ (Negative); Color Urine Yellow; Glucose Urine UA 3+ (Negative); Ketones Urine 4+ (Negative); Leukocyte Esterase Urine Negative (Negative); Nitrite Urine Negative (Negative); Protein Urine Trace (Negative); Specific Gravity Urine 1.031 (1.000-1.030); Urobilinogen Urine Negative (Negative); pH Urine 5.5 (4.5-7.5)
--- NOTE | 2022-04-17 12:28 | XRay Report ---
XR chest 1V portable HISTORY: fever COMPARISON: Abdomen and pelvis CT 04/15/2022. FINDINGS: No pneumothorax. No pleural effusions. The cardiac silhouette is normal in size. Small patc hy left basilar density which is new from the prior CT examination. The right lung is clear. No evide nce for pulmonary edema. IMPRESSION: There is a new small patchy density at the left lung base. This could represent atelectasis or a deve loping pneumonia. ACT 112: Negative or not required by law. Electronically signed by: Homar Paredes M.D. 04/17/2022 12:27 PM
[2022-04-17] MEDS ORDERED: MAGNESIUM SULFATE / D5W 1 GM/100 ML BAG IV ONE (12:30)
--- NOTE | 2022-04-17 12:47 | XRay Report ---
KUB HISTORY: Postop. Fever. COMPARISON: Abdomen and pelvis CT 04/15/2022. FINDINGS: Midline skin laura are noted. A few borderline dilated gas-filled loops of large and smal l bowel within the left side of the abdomen. This may represent a mild postoperative ileus. Moderate well-formed stool noted within the colon. No renal calculi. No ureteral calculi. No pneumoperitoneum or pneumatosis. IMPRESSION: Midline skin laura consistent with recent postoperative change. A few borderline dilated gas-filled loops of large and small bowel within the left side of the abdomen. This may represent a mild postop erative ileus. ACT 112: Negative or not required by law. Electronically signed by: Homar Paredes M.D. 04/17/2022 12:46 PM
--- NOTE | 2022-04-17 15:00 | Electrocardiogram Report ---
Test Reason : Blood Pressure : / mmHG Vent. Rate : 107 BPM Atrial Rate : 107 BPM P-R Int : 128 ms QRS Dur : 088 ms QT Int : 328 ms P-R-T Axes : 061 025 031 degrees QTc Int : 437 ms Sinus tachycardia Incomplete right bundle branch block Otherwise normal ECG When compared with ECG of 20-DEC-2013 16:10, Vent. rate has increased BY 39 BPM Confirmed by Marcio Mike ([id number]) on 04/17/2022 3:00:34 PM Referred By: REFERRED SELF Confirmed By:Marcio Mike
[2022-04-17] MEDS: HYDROmorphone INJ 1 MG/ML SYRINGE IV PRN (17:42)
[2022-04-18] MEDS: HYDROmorphone INJ 1 MG/ML SYRINGE IV PRN ×3 (01:11→18:44)
[2022-04-18] MEDS: ACETAMINOPHEN 1,000 MG/100 ML VIAL IV SCH ×3 (03:15→19:26)
[2022-04-18] MEDS: SODIUM CHLORIDE 0.9% 1000ML 1,000 ML IV SCH ×2 (05:02→17:01)
[2022-04-18] MEDS: PIPERACILLIN/TAZOBACTAM 3.375 GM in DEXTROSE 5% 100 ML IV SCH ×3 (05:02→19:31)
[2022-04-18] MEDS: INSULIN ASPART PER UNIT SC SCH ×4 (06:21→21:10)
--- NOTE | 2022-04-18 08:31 | Hospitalist Progress Note ---
Date of Service April 18, 2022 Assessment & Plan (1) Cecal volvulus: Plan: Admitted for acute RLQ abdominal pain, imaging concerning for cecal volvulus or an internal hernia, admitted by surgical team. Interestingly she was to be set up for her first c-scope this upcoming Thursday. POD# 3 s/p Exploratory Lapratomy, Right hemicolectomy, Diverting Ileostomy(Not Applicable) - Kole Alcala DO. EBL 10cc Wound RN consulted Path: - Mucosal hemorrhage of the cecum consistent with the clinical history of a cecal volvulus is seen. Fibrous obliteration of the appendix is noted. No tumor seen. - Please note that gross examination in this case revealed congestion of the subserosal vessels and a dense adhesive band extending from the mid point of the appendix to the proximal ascending colon. Zosyn IV abx WBC trending down Hgb stable on continuous IVF (continued per primary service) Temp 38.7C on 04/17, nothing since -- of note, was ON scheduled tylenol Bcx pending. KUB did show ileus but not upright imaging/no evidence for free air. If concerns, repeat. Lactic wnl UA w/o evidence for infection. CXR w/ atelectasis vs developing pneumonia. Follow up CXR notes possible LLL airspace consolidation suggestive on pneumonia, however no further fevers, no sputum and suspect moreso atelectasis. No vomiting w/ nausea reported since admit Continue incentive spirometer Doing much better today, ostomy does have liquid black output, changed multiple times. 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 Takes 7 novolin and 3 novolog in the evening. DOES NOT HAVE A PUMP Typically on lisinopril, simvastatin for prevention Utilziing 6u glargine BID, ISS inpatient Changed BSG q6H to AC/HS now that diet ordered. 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 Had some nausea but much improvement with Phenergan. Was given some clear liquids which was was very thankful for but wasn't able to eat too much. Discussed taking it slow, do not advance past comfort. Ostomy emptied a couple times this morning, remains darkened/blackened in color. Less discomfort. Was able to ambulate a little. No further fevers. Has been using the incentive spirometer since last evening but not much today. Encouraged continued use. Lungs sound good. No cough/sputum production/shortness of breath. Labs w/ improvement in WBC, remains on Zosyn. Discussed mag 1.6, IV replacement ordered. Review of Systems Review of Systems: All systems reviewed & are unremarkable except as noted in HPI & below Physical Exam Physical Exam: General: WD/WN sitting up in bed, appears much more comfortable today, NAD, minimal discomfort noted with movements HEENT: head normocephalic, atraumatic, mm slightly dry but improved, trachea midline Resp: CTAb, slightly diminished in the bases, decreased crackles (improved with cough), no wheezing/rales, on room air 95% CV: RRR, no m/r/g, no pitting edema/calf tenderness GI: soft, hypoactive BS, decreased tenderness to palpation but tender around incision, ostomy beefy red, liquid black stool in ostomy : no paul MSK/NEURO: no focal deficit Psych: alert, oriented to person/place/time Results & Data Results & Data ([facility]) Vital Signs (Past 12 Hours) Vital Signs Temp Pulse Pulse Resp BP Pulse Ox O2 Del Method 04/18/22 07:49 37.0 C 95 H 14 112/67 95 Room Air 04/17/22 20:32 37.1 C 102 H 18 115/64 94 Room Air Laboratory Results 04/18/22 04/17/22 04/17/22 Range/Units 06:13 23:17 21:03 WBC (4.8-10.8) K/ul RBC (3.93-5.22) M/uL Hgb (12.0-16.0) g/dl Hct (34.1-44.9) % MCV (80.0-100.0) fL MCH (25.0-34.0) pg MCHC (32.0-36.0) g/dL RDW Std Deviation (36.4-46.3) fL RDW Coeff of Annika (11.5-14.5) % Plt Count (130-400) K/uL MPV (9.4-12.3) fL Immature Gran % (Auto) % Neut % (Auto) % Lymph % (Auto) % [place] % (Auto) % Eos % (Auto) % Baso % (Auto) % Neut # (Auto) (1.4-6.5) K/uL Lymph # (Auto) (1.2-3.4) K/uL [place] # (Auto) (0.24-0.82) K/uL Eos # (Auto) (0-0.50) K/uL Baso # (Auto) (0-0.2) K/uL Immature Gran # (Auto) (0.00-0.02) K/uL Sodium (136-145) mmol/L Potassium (3.5-5.1) mmol/L Chloride (98-107) mmol/L Carbon Dioxide (21-32) mmol/L Anion Gap (3-11) BUN (6-23) mg/dl Creatinine (0.6-1.2) mg/dl Est Cr Clr Drug Dosing ml/min Est GFR ( Amer) ml/min Est GFR (Non-Af Amer) ml/min BUN/Creatinine Ratio (10-20) Glucose (70-99(Fasting)) mg/dl POC Glucose 155 H 158 H 163 H (70-99) mg/dl Lactate (0.4-2.0) mmol/L Calcium (8.5-10.1) mg/dl Magnesium (1.7-2.4) mg/dl Urine Color Urine Appearance (Clear) Urine pH (4.5-7.5) Ur Specific [place] (1.000-1.030) Urine Protein (Negative) Urine Glucose (UA) (Negative) Urine Ketones (Negative) Urine Blood (Negative) Urine Nitrite (Negative) Urine Bilirubin (Negative) Urine Urobilinogen (Negative) Ur Leukocyte Esterase (Negative) Urine WBC (Auto) (0-5) /hpf Urine RBC (Auto) (0-4) /hpf U Hyaline Cast (Auto) (0-5) /lpf U Epithel Cells (Auto) (0-5) /lpf Urine Bacteria (Auto) (Negative) 04/17/22 04/17/22 04/17/22 Range/Units 18:12 14:18 12:34 WBC (4.8-10.8) K/ul RBC (3.93-5.22) M/uL Hgb (12.0-16.0) g/dl Hct (34.1-44.9) % MCV (80.0-100.0) fL MCH (25.0-34.0) pg MCHC (32.0-36.0) g/dL RDW Std Deviation (36.4-46.3) fL RDW Coeff of Annika (11.5-14.5) % Plt Count (130-400) K/uL MPV (9.4-12.3) fL Immature Gran % (Auto) % Neut % (Auto) % Lymph % (Auto) % [place] % (Auto) % Eos % (Auto) % Baso % (Auto) % Neut # (Auto) (1.4-6.5) K/uL Lymph # (Auto) (1.2-3.4) K/uL [place] # (Auto) (0.24-0.82) K/uL Eos # (Auto) (0-0.50) K/uL Baso # (Auto) (0-0.2) K/uL Immature Gran # (Auto) (0.00-0.02) K/uL Sodium (136-145) mmol/L Potassium (3.5-5.1) mmol/L Chloride (98-107) mmol/L Carbon Dioxide (21-32) mmol/L Anion Gap (3-11) BUN (6-23) mg/dl Creatinine (0.6-1.2) mg/dl Est Cr Clr Drug Dosing ml/min Est GFR ( Amer) ml/min Est GFR (Non-Af Amer) ml/min BUN/Creatinine Ratio (10-20) Glucose (70-99(Fasting)) mg/dl POC Glucose 209 H 178 H (70-99) mg/dl Lactate 0.9 (0.4-2.0) mmol/L Calcium (8.5-10.1) mg/dl Magnesium (1.7-2.4) mg/dl Urine Color Urine Appearance (Clear) Urine pH (4.5-7.5) Ur Specific [place] (1.000-1.030) Urine Protein (Negative) Urine Glucose (UA) (Negative) Urine Ketones (Negative) Urine Blood (Negative) Urine Nitrite (Negative) Urine Bilirubin (Negative) Urine Urobilinogen (Negative) Ur Leukocyte Esterase (Negative) Urine WBC (Auto) (0-5) /hpf Urine RBC (Auto) (0-4) /hpf U Hyaline Cast (Auto) (0-5) /lpf U Epithel Cells (Auto) (0-5) /lpf Urine Bacteria (Auto) (Negative) 04/17/22 04/17/22 04/17/22 Range/Units 12:05 08:35 08:35 WBC 14.58 H (4.8-10.8) K/ul RBC 4.21 (3.93-5.22) M/uL Hgb 13.5 (12.0-16.0) g/dl Hct 40.3 (34.1-44.9) % MCV 95.7 (80.0-100.0) fL MCH 32.1 (25.0-34.0) pg MCHC 33.5 (32.0-36.0) g/dL RDW Std Deviation 40.2 (36.4-46.3) fL RDW Coeff of Annika 11.5 (11.5-14.5) % Plt Count 189 (130-400) K/uL MPV 10.3 (9.4-12.3) fL Immature Gran % (Auto) 0.4 % Neut % (Auto) 83.5 % Lymph % (Auto) 9.5 % [place] % (Auto) 5.9 % Eos % (Auto) 0.5 % Baso % (Auto) 0.2 % Neut # (Auto) 12.17 H (1.4-6.5) K/uL Lymph # (Auto) 1.39 (1.2-3.4) K/uL [place] # (Auto) 0.86 H (0.24-0.82) K/uL Eos # (Auto) 0.07 (0-0.50) K/uL Baso # (Auto) 0.03 (0-0.2) K/uL Immature Gran # (Auto) 0.06 H (0.00-0.02) K/uL Sodium 134 L (136-145) mmol/L Potassium 4.7 (3.5-5.1) mmol/L Chloride 106 (98-107) mmol/L Carbon Dioxide 25 (21-32) mmol/L Anion Gap 3 (3-11) BUN 12 (6-23) mg/dl Creatinine 0.63 (0.6-1.2) mg/dl Est Cr Clr Drug Dosing 96.0 ml/min Est GFR ( Amer) 122.1 ml/min Est GFR (Non-Af Amer) 105.3 ml/min BUN/Creatinine Ratio 19.0 (10-20) Glucose 205 H (70-99(Fasting)) mg/dl POC Glucose (70-99) mg/dl Lactate (0.4-2.0) mmol/L Calcium 8.0 L (8.5-10.1) mg/dl Magnesium 1.8 (1.7-2.4) mg/dl Urine Color Yellow Urine Appearance Clear (Clear) Urine pH 5.5 (4.5-7.5) Ur Specific [place] 1.031 H (1.000-1.030) Urine Protein Trace H (Negative) Urine Glucose (UA) 3+ H (Negative) Urine Ketones 4+ H (Negative) Urine Blood 2+ H (Negative) Urine Nitrite Negative (Negative) Urine Bilirubin Negative (Negative) Urine Urobilinogen Negative (Negative) Ur Leukocyte Esterase Negative (Negative) Urine WBC (Auto) 1-5 (0-5) /hpf Urine RBC (Auto) 5-10 H (0-4) /hpf U Hyaline Cast (Auto) 1-5 (0-5) /lpf U Epithel Cells (Auto) 10-20 H (0-5) /lpf Urine Bacteria (Auto) Negative (Negative) Diagnostic Findings Chest X-Ray 04/18/22 09:06 XR chest 2V PA/lateral HISTORY: 51 years-old Female f/u RLL density follow-up study in a patient with left lung base opacity COMPARISON: Chest radiograph 04/17/2022, CT abdomen and pelvis 04/15/2022 TECHNIQUE: PA and lateral views of the chest FINDINGS: Mildly progressed posterior basal segment left lower lobe airspace consolidation. Cardiomediastinal and hilar silhouettes are within normal limits. No pneumothorax, pleural effusion or overt pulmonary edema. Bones appear grossly intact. IMPRESSION: Left lower lobe airspace consolidation suggestive of pneumonia. ACT 112: Negative or not required by law. The above report was generated using voice recognition software. It may contain grammatical, syntax or spelling errors. Electronically signed by: Ramo aCmpos M.D. 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
--- NOTE | 2022-04-18 08:39 | Surgery Progress Note ---
Date of Service April 18, 2022 Assessment & Plan (1) Cecal volvulus: Plan: POD#3 s/p right hemicolectomy labs pending afebrile bowel function returning start on clears ambulate halls as above. continued slow improvement. will initiate clears. increase activity. Dr. 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 Admission and Anticipated Discharge Date Admission Date: April 16, 2022 Subjective increasing ostomy output, feeling better overall Physical Exam Gastrointestinal (Abdomen): Inspection/Auscultation: + abdomen distended (slight) and + abdominal surgical incision (dressing intact) Percussion/Palpation: abdomen soft Air and liquid ostomy output Results & Data ([facility]) Vital Signs (Past 12 Hours) Vital Signs Temp Pulse Resp BP Pulse Ox O2 Del Method 04/18/22 07:49 37.0 C 95 H 14 112/67 95 Room Air PG Care Time/CCT Total # of Minutes Spent Total Time Spent with Patient: Total time spent is greater than 50% in coordination of care (as documented) at patient's floor/unit and/or counseling patient: Coding Level of Care Code None Diagnoses Cecal volvulus K56.2
[2022-04-18 09:06] LABS: Basophils # (auto) 0.04 K/uL (0-0.2); Basophils % (auto) 0.3 %; Eosinophils # (auto) 0.34 K/uL (0-0.50); Eosinophils % (auto) 2.7 %; Hematocrit (blood only) 35.9 % (34.1-44.9); Hemoglobin 12.1 g/dl (12.0-16.0); Immature Granulocytes # (auto) 0.06 K/uL (0.00-0.02); Immature Granulocytes % (auto) 0.5 %; Lymphocytes # (auto) 1.25 K/uL (1.2-3.4); Lymphocytes % (auto) 9.9 %; Mean Corpuscular Hemoglobin 32.3 pg (25.0-34.0); Mean Corpuscular Hgb Conc 33.7 g/dL (32.0-36.0); Mean Corpuscular Volume 95.7 fL (80.0-100.0); Mean Platelet Volume 10.3 fL (9.4-12.3); Monocytes # (auto) 0.81 K/uL (0.24-0.82); Monocytes % (auto) 6.4 %; Neutrophils # (auto) 10.19 K/uL (1.4-6.5); Neutrophils % (auto) 80.2 %; Platelet Count 177 K/uL (130-400); RDW Coefficient of Variation 11.5 % (11.5-14.5); RDW Standard Deviation 40.4 fL (36.4-46.3); Red Blood Count 3.75 M/uL (3.93-5.22); White Blood Count 12.69 K/ul (4.8-10.8)
[2022-04-18 09:25] LABS: BUN Creatinine Ratio 21.7 (10-20); Calcium 7.7 mg/dl (8.5-10.1); Creatinine Clr Calc Pharmacy 100.8 ml/min; Magnesium 1.6 mg/dl (1.7-2.4)
[2022-04-18] MEDS: LANTUS PER UNIT CHARGE SQ SCH ×2 (09:35→21:11)
[2022-04-18] MEDS: ENOXAPARIN INJ 40 MG/0.4 ML SYR SQ SCH (09:46)
[2022-04-18] MEDS: PROMETHAZINE HCL 12.5 MG in SODIUM CHLORIDE 0.9% 50 ML IV PRN (09:49)
[2022-04-18] MEDS: MAGNESIUM SULFATE / D5W 1 GM/100 ML BAG IV SCH ×2 (11:28→13:24)
[2022-04-18] MEDS: FAMOTIDINE 20 MG in SYRINGE 3 ML IV SCH (11:57)
--- NOTE | 2022-04-18 11:57 | XRay Report ---
XR chest 2V PA/lateral HISTORY: 51 years-old Female f/u RLL density follow-up study in a patient with left lung base opacit y COMPARISON: Chest radiograph 04/17/2022, CT abdomen and pelvis 04/15/2022 TECHNIQUE: PA and lateral views of the chest FINDINGS: Mildly progressed posterior basal segment left lower lobe airspace consolidation. Cardiomediastinal a nd hilar silhouettes are within normal limits. No pneumothorax, pleural effusion or overt pulmonary e alfonzo. Bones appear grossly intact. IMPRESSION: Left lower lobe airspace consolidation suggestive of pneumonia. ACT 112: Negative or not required by law. The above report was generated using voice recognition software. It may contain grammatical, syntax o r spelling errors. Electronically signed by: Ramo Campos M.D. 04/18/2022 11:55 AM
[2022-04-18] MEDS ORDERED: Nursing to Pharmacy Communication SCH (13:00)
[2022-04-19] MEDS: PIPERACILLIN/TAZOBACTAM 3.375 GM in DEXTROSE 5% 100 ML IV SCH ×3 (03:42→19:30)
[2022-04-19] MEDS: ACETAMINOPHEN 1,000 MG/100 ML VIAL IV SCH (03:42)
[2022-04-19] MEDS: SODIUM CHLORIDE 0.9% 1000ML 1,000 ML IV SCH (05:47)
[2022-04-19] MEDS: INSULIN ASPART PER UNIT SC SCH ×5 (07:05→21:13)
[2022-04-19 07:08] LABS: Basophils # (auto) 0.02 K/uL (0-0.2); Basophils % (auto) 0.3 %; Eosinophils # (auto) 0.34 K/uL (0-0.50); Eosinophils % (auto) 4.5 %; Hematocrit (blood only) 34.5 % (34.1-44.9); Hemoglobin 11.4 g/dl (12.0-16.0); Immature Granulocytes # (auto) 0.03 K/uL (0.00-0.02); Immature Granulocytes % (auto) 0.4 %; Lymphocytes # (auto) 0.94 K/uL (1.2-3.4); Lymphocytes % (auto) 12.4 %; Mean Corpuscular Hemoglobin 31.7 pg (25.0-34.0); Mean Corpuscular Volume 95.8 fL (80.0-100.0); Mean Platelet Volume 10.8 fL (9.4-12.3); Monocytes # (auto) 0.53 K/uL (0.24-0.82); Neutrophils # (auto) 5.73 K/uL (1.4-6.5); Neutrophils % (auto) 75.4 %; Platelet Count 157 K/uL (130-400); RDW Coefficient of Variation 11.6 % (11.5-14.5); RDW Standard Deviation 40.8 fL (36.4-46.3); White Blood Count 7.59 K/ul (4.8-10.8)
[2022-04-19 07:35] LABS: BUN Creatinine Ratio 22.4 (10-20); Calcium 7.4 mg/dl (8.5-10.1); Creatinine Clr Calc Pharmacy 123.5 ml/min; Est GFR (African American) 132.6 ml/min; Est GFR (Non-African American) 114.4 ml/min; Magnesium 1.6 mg/dl (1.7-2.4); Potassium 3.9 mmol/L (3.5-5.1)
--- NOTE | 2022-04-19 08:43 | Hospitalist Progress Note ---
Date of Service April 19, 2022 Assessment & Plan (1) Cecal volvulus: Plan: Admitted for acute RLQ abdominal pain, imaging concerning for cecal volvulus or an internal hernia, admitted by surgical team. Interestingly she was to be set up for her first c-scope this upcoming Thursday. POD# 4 s/p Exploratory Lapratomy, Right hemicolectomy, Diverting Ileostomy(Not Applicable) - Kole Alcala DO. EBL 10cc Wound RN consulted Path: - Mucosal hemorrhage of the cecum consistent with the clinical history of a cecal volvulus is seen. Fibrous obliteration of the appendix is noted. No tumor seen. - Please note that gross examination in this case revealed congestion of the subserosal vessels and a dense adhesive band extending from the mid point of the appendix to the proximal ascending colon. Zosyn IV abx continued WBC trending down, now wnl Hgb stable on continuous IVF (continued per primary service) Temp 38.7C on 04/17, nothing since -- of note, was ON scheduled Tylenol. Lactic wnl UA w/o infection, CXR possible developing LLL pneumonia, however no further fever/sputum production or shortness of breath but does note a cough. Monitor for any worsening however remains on Zosyn. Added doxy if needed for HAP however lungs clear on auscultation and remains on room air, 95% Ostomy continues with decent output, not significant input by mouth but improved from day prior. CO2 20 on am labs, likely from diarrheal losses. 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 Takes 7 novolin and 3 novolog in the evening. DOES NOT HAVE A PUMP Typically on lisinopril, simvastatin for prevention Utilziing 6u glargine BID, ISS inpatient -- increase to7U BID now that eating more Tighten ISS to promote wound healing Monitor for any hypoglycemia -- issues w/ confusion/syncope/seizures in the past Changed BSG q6H to AC/HS now that diet ordered. 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 Admission and Anticipated Discharge Date Admission Date: April 16, 2022 Supervising Physician Co-Signing Physician Notes PA Supervision Note: I did not personally see or examine the patient today, but I verified all torres points of JUNIOR Lewis's assessment and plan with the following exceptions/additions: None Subjective Patient evaluated this morning. Feeling better. States has seen general surgery this morning and planning for full liquid diet today. Ambulating. No fever/chills, chest pain or shortness of breath but does have an occassional cough. No sputum production. Remains using the incentive spirometer. Discussed CXR w/ possible developing pneumonia however lungs clear on exam and suspect that was more atelectasis. No further fevers. Blood cultures remain no growth to date, remains on Zosyn. Questions/concerns addressed at this time. Review of Systems Review of Systems: All systems reviewed & are unremarkable except as noted in HPI & below Physical Exam Physical Exam: General: WD/WN sitting up in bed, continues to appear more comfortable compared to prior days, NAD HEENT: head normocephalic, atraumatic, mm now moist, trachea midline Resp: CTAb, slightly diminished in the bases, decreased crackles (improved with cough), no wheezing/rales, on room air 95% CV: RRR, no m/r/g, no pitting edema/calf tenderness GI: soft, + BS, decreased tenderness to palpation but tender around incision, ostomy beefy red, liquid black stool with green bile noted from ileostomy site : no paul MSK/NEURO: no focal deficit Psych: alert, oriented to person/place/time Results & Data Results & Data ([facility]) Vital Signs (Past 12 Hours) Vital Signs Temp Pulse Resp BP Pulse Ox O2 Del Method 04/19/22 07:54 37.0 C 92 H 16 113/71 95 Room Air 04/19/22 02:45 37.1 C 90 18 119/71 95 Room Air 04/19/22 00:51 36.6 C 85 18 108/65 94 Room Air Laboratory Results 04/19/22 04/19/22 04/19/22 Range/Units 08:03 05:58 05:58 WBC 7.59 (4.8-10.8) K/ul RBC 3.60 L (3.93-5.22) M/uL Hgb 11.4 L (12.0-16.0) g/dl Hct 34.5 (34.1-44.9) % MCV 95.8 (80.0-100.0) fL MCH 31.7 (25.0-34.0) pg MCHC 33.0 (32.0-36.0) g/dL RDW Std Deviation 40.8 (36.4-46.3) fL RDW Coeff of Annika 11.6 (11.5-14.5) % Plt Count 157 (130-400) K/uL MPV 10.8 (9.4-12.3) fL Immature Gran % (Auto) 0.4 % Neut % (Auto) 75.4 % Lymph % (Auto) 12.4 % Morrow % (Auto) 7.0 % Eos % (Auto) 4.5 % Baso % (Auto) 0.3 % Neut # (Auto) 5.73 (1.4-6.5) K/uL Lymph # (Auto) 0.94 L (1.2-3.4) K/uL Morrow # (Auto) 0.53 (0.24-0.82) K/uL Eos # (Auto) 0.34 (0-0.50) K/uL Baso # (Auto) 0.02 (0-0.2) K/uL Immature Gran # (Auto) 0.03 H (0.00-0.02) K/uL Sodium 135 L (136-145) mmol/L Potassium 3.9 (3.5-5.1) mmol/L Chloride 110 H (98-107) mmol/L Carbon Dioxide 20 L (21-32) mmol/L Anion Gap 5 (3-11) BUN 11 (6-23) mg/dl Creatinine 0.49 L (0.6-1.2) mg/dl Est Cr Clr Drug Dosing 123.5 ml/min Est GFR ( Amer) 132.6 ml/min Est GFR (Non-Af Amer) 114.4 ml/min BUN/Creatinine Ratio 22.4 H (10-20) Glucose 192 H (70-99(Fasting)) mg/dl POC Glucose 221 H (70-99) mg/dl Calcium 7.4 L (8.5-10.1) mg/dl Magnesium 1.6 L (1.7-2.4) mg/dl Procalcitonin (0-0.5) ng/ml 04/18/22 04/18/22 04/18/22 Range/Units 20:10 18:23 12:14 WBC (4.8-10.8) K/ul RBC (3.93-5.22) M/uL Hgb (12.0-16.0) g/dl Hct (34.1-44.9) % MCV (80.0-100.0) fL MCH (25.0-34.0) pg MCHC (32.0-36.0) g/dL RDW Std Deviation (36.4-46.3) fL RDW Coeff of Annika (11.5-14.5) % Plt Count (130-400) K/uL MPV (9.4-12.3) fL Immature Gran % (Auto) % Neut % (Auto) % Lymph % (Auto) % Morrow % (Auto) % Eos % (Auto) % Baso % (Auto) % Neut # (Auto) (1.4-6.5) K/uL Lymph # (Auto) (1.2-3.4) K/uL Morrow # (Auto) (0.24-0.82) K/uL Eos # (Auto) (0-0.50) K/uL Baso # (Auto) (0-0.2) K/uL Immature Gran # (Auto) (0.00-0.02) K/uL Sodium (136-145) mmol/L Potassium (3.5-5.1) mmol/L Chloride (98-107) mmol/L Carbon Dioxide (21-32) mmol/L Anion Gap (3-11) BUN (6-23) mg/dl Creatinine (0.6-1.2) mg/dl Est Cr Clr Drug Dosing ml/min Est GFR ( Amer) ml/min Est GFR (Non-Af Amer) ml/min BUN/Creatinine Ratio (10-20) Glucose (70-99(Fasting)) mg/dl POC Glucose 198 H 206 H 194 H (70-99) mg/dl Calcium (8.5-10.1) mg/dl Magnesium (1.7-2.4) mg/dl Procalcitonin (0-0.5) ng/ml 04/18/22 04/18/22 04/18/22 Range/Units 08:30 08:30 08:30 WBC 12.69 H (4.8-10.8) K/ul RBC 3.75 L (3.93-5.22) M/uL Hgb 12.1 (12.0-16.0) g/dl Hct 35.9 (34.1-44.9) % MCV 95.7 (80.0-100.0) fL MCH 32.3 (25.0-34.0) pg MCHC 33.7 (32.0-36.0) g/dL RDW Std Deviation 40.4 (36.4-46.3) fL RDW Coeff of Annika 11.5 (11.5-14.5) % Plt Count 177 (130-400) K/uL MPV 10.3 (9.4-12.3) fL Immature Gran % (Auto) 0.5 % Neut % (Auto) 80.2 % Lymph % (Auto) 9.9 % Morrow % (Auto) 6.4 % Eos % (Auto) 2.7 % Baso % (Auto) 0.3 % Neut # (Auto) 10.19 H (1.4-6.5) K/uL Lymph # (Auto) 1.25 (1.2-3.4) K/uL Morrow # (Auto) 0.81 (0.24-0.82) K/uL Eos # (Auto) 0.34 (0-0.50) K/uL Baso # (Auto) 0.04 (0-0.2) K/uL Immature Gran # (Auto) 0.06 H (0.00-0.02) K/uL Sodium 136 (136-145) mmol/L Potassium 4.0 (3.5-5.1) mmol/L Chloride 108 H (98-107) mmol/L Carbon Dioxide 22 (21-32) mmol/L Anion Gap 6 (3-11) BUN 13 (6-23) mg/dl Creatinine 0.60 (0.6-1.2) mg/dl Est Cr Clr Drug Dosing 100.8 ml/min Est GFR ( Amer) 124.0 ml/min Est GFR (Non-Af Amer) 107.0 ml/min BUN/Creatinine Ratio 21.7 H (10-20) Glucose 169 H (70-99(Fasting)) mg/dl POC Glucose (70-99) mg/dl Calcium 7.7 L (8.5-10.1) mg/dl Magnesium 1.6 L (1.7-2.4) mg/dl Procalcitonin 4.65 H (0-0.5) ng/ml PG Care Time/CCT Total # of Minutes Spent Total Time Spent with Patient: Total time spent is greater than 50% in coordination of care (as documented) at patient's floor/unit and/or counseling patient: Coding Level of Care Code 00733 Subseq Hosp Care Lvl 3 Diagnoses Cecal volvulus K56.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
[2022-04-19] MEDS: ENOXAPARIN INJ 40 MG/0.4 ML SYR SQ SCH (09:23)
[2022-04-19] MEDS: LANTUS PER UNIT CHARGE SQ SCH ×2 (09:24→21:17)
[2022-04-19] MEDS: FAMOTIDINE 20 MG in SYRINGE 3 ML IV SCH (09:30)
[2022-04-19] MEDS: PROMETHAZINE HCL 12.5 MG in SODIUM CHLORIDE 0.9% 50 ML IV PRN (09:38)
[2022-04-19] MEDS ORDERED: oxyCODONE/ACETAMINOPHEN 5mg/325mg TAB PO PRN ×2 (09:57)
--- NOTE | 2022-04-19 10:01 | Surgery Progress Note ---
Date of Service April 19, 2022 Assessment & Plan (1) Cecal volvulus: Plan: POD#4 s/p right hemicolectomy improving slowly try full liquids stop IVF, transition to po analgesics seen with Dr. Fitzpatrick Admission and Anticipated Discharge Date Admission Date: April 16, 2022 Supervising Physician Co-Signing Physician Notes I personally saw and evaluated the patient with Chaparro Samuels PA-C and agree with the assessment and plan. 51-year-old female status post open right hemicolectomy for cecal volvulus, postop day 4 She is tolerating clears, will advance her to full liquids She does have some ileostomy output at this point Will transition from IV to p.o. pain control and start IV fluids Patient has full support, pending electrolytes Encourage ambulation I-S and await more meaningful ileostomy function Subjective some nausea but overall feeling better, continues to have ostomy output Physical Exam Constitutional: WD/WN, vitals as above Gastrointestinal (Abdomen): Inspection/Auscultation: + abdominal surgical incision (no erythema); abdomen not distended Percussion/Palpation: abdomen soft Results & Data ([facility]) Vital Signs (Past 12 Hours) Vital Signs Temp Pulse Resp BP Pulse Ox O2 Del Method 04/19/22 07:54 37.0 C 92 H 16 113/71 95 Room Air 04/19/22 02:45 37.1 C 90 18 119/71 95 Room Air 04/19/22 00:51 36.6 C 85 18 108/65 94 Room Air PG Care Time/CCT Total # of Minutes Spent Total Time Spent with Patient: Total time spent is greater than 50% in coordination of care (as documented) at patient's floor/unit and/or counseling patient: Coding Level of Care Code None Diagnoses Cecal volvulus K56.2
[2022-04-19] MEDS: MAGNESIUM SULFATE / D5W 1 GM/100 ML BAG IV SCH ×3 (10:05→13:54)
[2022-04-19] MEDS: HYDROmorphone INJ 1 MG/ML SYRINGE IV PRN (11:57)
[2022-04-20] MEDS: PIPERACILLIN/TAZOBACTAM 3.375 GM in DEXTROSE 5% 100 ML IV SCH ×3 (03:49→20:16)
[2022-04-20] MEDS: HYDROmorphone INJ 1 MG/ML SYRINGE IV PRN (07:13)
[2022-04-20 07:17] LABS: Hematocrit (blood only) 34.5 % (34.1-44.9); Hemoglobin 12.3 g/dl (12.0-16.0); Mean Corpuscular Hemoglobin 32.6 pg (25.0-34.0); Mean Corpuscular Hgb Conc 35.7 g/dL (32.0-36.0); Mean Corpuscular Volume 91.5 fL (80.0-100.0); Mean Platelet Volume 10.2 fL (9.4-12.3); Platelet Count 190 K/uL (130-400); RDW Coefficient of Variation 11.6 % (11.5-14.5); Red Blood Count 3.77 M/uL (3.93-5.22); White Blood Count 7.58 K/ul (4.8-10.8)
[2022-04-20 07:43] LABS: Albumin Globulin Ratio 1.2 (0.9-2); Albumin Level 2.9 gm/dl (3.4-5.0); BUN Creatinine Ratio 15.1 (10-20); Bilirubin,Total 0.6 mg/dl (0.2-1.0); Calcium 7.6 mg/dl (8.5-10.1); Creatinine Clr Calc Pharmacy 114.2 ml/min; Est GFR (African American) 129.2 ml/min; Est GFR (Non-African American) 111.5 ml/min; Globulin 2.5 gm/dl (2.5-4.0); Magnesium 1.6 mg/dl (1.7-2.4); Potassium 3.4 mmol/L (3.5-5.1); Total Protein 5.4 gm/dl (6.0-8.3)
--- NOTE | 2022-04-20 08:00 | Hospitalist Progress Note ---
Date of Service April 20, 2022 Assessment & Plan (1) Cecal volvulus: Plan: Admitted for acute RLQ abdominal pain, imaging concerning for cecal volvulus or an internal hernia, admitted by surgical team. Interestingly she was to be set up for her first c-scope this upcoming Thursday. POD#4 s/p Exploratory Laparotomy, Right hemicolectomy, DivertingIleostomy - Kole Alcala DO. EBL 10cc Wound RN consulted Path: - Mucosal hemorrhage of the cecum consistent with the clinical history of a cecal volvulus is seen. Fibrous obliteration of the appendix is noted. No tumor seen. - Please note that gross examination in this case revealed congestion of the subserosal vessels and a dense adhesive band extending from the mid point of the appendix to the proximal ascending colon. Zosyn IV abx continued (day 4) WBC trending down, now wnl Temp 38.7C on 04/17, nothing since -- of note, was ON scheduled Tylenol, since discontinued. Lactic wnl UA w/o infection, CXR possible developing LLL pneumonia -> no further evidence on repeat imaging No sputum production/SOB, continue incentive spirometer Hgb stable on continuous IVF (discontinued 04/19), currently improved to 12.3 Pain control/bowel regimen/antiemetics per primary service PT/OT consulted DVT proph -- Lovenox SQ Had emesis x 1/nausea overnight into this morning. Reported she thinks she over did it and also hadn't gotten pain medication since day prior, and also reports opiates make her nauseous at baseline Remains on full liquid diet per surgery, would not advance given n/v, and checked KUB to r/o ileus, check up on prior opacity, megan given reported emesis -- no pneumoperitoneum/ileus or obstruction noted Electrolyte replacement -- K 3.4, PO replacement ordred. Mag 1.6 - IV 3gm ordered. 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 Takes 7 novolin and 3 novolog in the evening. 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 I agree w/ the torres components of her documentation. Colton Syed MD Subjective eval this morning, had episode of significant pain overnight into the morning but she reports she thinks she over did it yesterday and had been without pain m edication since yesterday. got diluadid this morning and had episode of emesis with bile. Ostomy w/ liquid darkened output. Dressing dose have a little bit of saturation w/ bile. Asked RN to check/change. Denies any fevers, not on scheduled tylenol anymore, however does feel a little sweating. Occasional dry cough but no shortness of breath/sputum production. Seen by surgery this morning and they plan to repeat abdominal xray. Discussed would not advance diet just yet and ordered replacement K/Mag, likely from diarrheal loses from ostomy output. Had been tolerating full liquid diet tray yesterday. Will continue to monitor. Questions/concerns addressed at this time. Review of Systems Review of Systems: All systems reviewed & are unremarkable except as noted in HPI & below Physical Exam Physical Exam: General: WD/WN sitting up in bed, appears comfortable but reports she had some nausea with emesis this morning, NAD currently HEENT: head normocephalic, atraumatic, mmn, trachea midline Resp: CTAb, slightly diminished in the bases, faint crackles bibasilar (improved w/ cough), no wheezing/rales, on room air CV: RRR, no m/r/g, no pitting edema/calf tenderness GI: soft, + BS, decreased tenderness to palpation but tender around incision, ostomy beefy red, liquid black stool with green bile noted from ileostomy site, scant bilious drainage noted on abdominal dressing (alerted surgery of such) : no paul MSK/NEURO: no focal deficit Psych: alert, oriented to person/place/time Results & Data Results & Data ([facility]) Vital Signs (Past 12 Hours) Vital Signs Temp Pulse Resp BP Pulse Ox O2 Del Method 04/20/22 07:35 36.8 C 81 16 125/74 94 Room Air 04/19/22 22:00 37.1 C 93 H 18 123/68 97 Room Air Laboratory Results 04/20/22 04/20/22 04/20/22 Range/Units 12:26 08:18 06:48 WBC (4.8-10.8) K/ul RBC (3.93-5.22) M/uL Hgb (12.0-16.0) g/dl Hct (34.1-44.9) % MCV (80.0-100.0) fL MCH (25.0-34.0) pg MCHC (32.0-36.0) g/dL RDW Std Deviation (36.4-46.3) fL RDW Coeff of Annika (11.5-14.5) % Plt Count (130-400) K/uL MPV (9.4-12.3) fL Sodium 138 (136-145) mmol/L Potassium 3.4 L (3.5-5.1) mmol/L Chloride 107 (98-107) mmol/L Carbon Dioxide 25 (21-32) mmol/L Anion Gap 6 (3-11) BUN 8 (6-23) mg/dl Creatinine 0.53 L (0.6-1.2) mg/dl Est Cr Clr Drug Dosing 114.2 ml/min Est GFR ( Amer) 129.2 ml/min Est GFR (Non-Af Amer) 111.5 ml/min BUN/Creatinine Ratio 15.1 (10-20) Glucose 127 H (70-99(Fasting)) mg/dl POC Glucose 252 H 129 H (70-99) mg/dl Calcium 7.6 L (8.5-10.1) mg/dl Magnesium 1.6 L (1.7-2.4) mg/dl Total Bilirubin 0.6 (0.2-1.0) mg/dl AST 17 (13-39) U/L ALT 13 (7-52) U/L Alkaline Phosphatase 109 H (34-104) U/L Total Protein 5.4 L (6.0-8.3) gm/dl Albumin 2.9 L (3.4-5.0) gm/dl Globulin 2.5 (2.5-4.0) gm/dl Albumin/Globulin Ratio 1.2 (0.9-2) 04/20/22 04/19/22 04/19/22 Range/Units 06:48 23:22 20:32 WBC 7.58 (4.8-10.8) K/ul RBC 3.77 L (3.93-5.22) M/uL Hgb 12.3 (12.0-16.0) g/dl Hct 34.5 (34.1-44.9) % MCV 91.5 (80.0-100.0) fL MCH 32.6 (25.0-34.0) pg MCHC 35.7 (32.0-36.0) g/dL RDW Std Deviation 39.0 (36.4-46.3) fL RDW Coeff of Annika 11.6 (11.5-14.5) % Plt Count 190 (130-400) K/uL MPV 10.2 (9.4-12.3) fL Sodium (136-145) mmol/L Potassium (3.5-5.1) mmol/L Chloride (98-107) mmol/L Carbon Dioxide (21-32) mmol/L Anion Gap (3-11) BUN (6-23) mg/dl Creatinine (0.6-1.2) mg/dl Est Cr Clr Drug Dosing ml/min Est GFR ( Amer) ml/min Est GFR (Non-Af Amer) ml/min BUN/Creatinine Ratio (10-20) Glucose (70-99(Fasting)) mg/dl POC Glucose 98 92 (70-99) mg/dl Calcium (8.5-10.1) mg/dl Magnesium (1.7-2.4) mg/dl Total Bilirubin (0.2-1.0) mg/dl AST (13-39) U/L ALT (7-52) U/L Alkaline Phosphatase (34-104) U/L Total Protein (6.0-8.3) gm/dl Albumin (3.4-5.0) gm/dl Globulin (2.5-4.0) gm/dl Albumin/Globulin Ratio (0.9-2) 04/19/22 Range/Units 17:15 WBC (4.8-10.8) K/ul RBC (3.93-5.22) M/uL Hgb (12.0-16.0) g/dl Hct (34.1-44.9) % MCV (80.0-100.0) fL MCH (25.0-34.0) pg MCHC (32.0-36.0) g/dL RDW Std Deviation (36.4-46.3) fL RDW Coeff of Annika (11.5-14.5) % Plt Count (130-400) K/uL MPV (9.4-12.3) fL Sodium (136-145) mmol/L Potassium (3.5-5.1) mmol/L Chloride (98-107) mmol/L Carbon Dioxide (21-32) mmol/L Anion Gap (3-11) BUN (6-23) mg/dl Creatinine (0.6-1.2) mg/dl Est Cr Clr Drug Dosing ml/min Est GFR ( Amer) ml/min Est GFR (Non-Af Amer) ml/min BUN/Creatinine Ratio (10-20) Glucose (70-99(Fasting)) mg/dl POC Glucose 115 H (70-99) mg/dl Calcium (8.5-10.1) mg/dl Magnesium (1.7-2.4) mg/dl Total Bilirubin (0.2-1.0) mg/dl AST (13-39) U/L ALT (7-52) U/L Alkaline Phosphatase (34-104) U/L Total Protein (6.0-8.3) gm/dl Albumin (3.4-5.0) gm/dl Globulin (2.5-4.0) gm/dl Albumin/Globulin Ratio (0.9-2) Diagnostic Findings Chest/Abdomen X-ray 04/20/22 09:50 XR abdomen 2V w PA chest CLINICAL HISTORY: abdominal pain, check for any free air, f/u opacit TECHNIQUE: 2 views of the abdomen were obtained. A single view of the chest was obtained. Comparison: Comparison is made to chest radiograph 04/18/2022 FINDINGS: No lines and tubes are seen. The cardiomediastinal silhouette is normal. Atelectasis is noted in the lungs without evidence of airspace opacity. No evidence of pleural effusion or pneumothorax. Midline abdominal laura are seen. The bowel gas pattern is nonobstructive. A moderate amount of stool is noted within the large bowel. IMPRESSION: No acute abnormality and in particular no evidence of pneumoperitoneum. ACT 112: Negative or not required by law. Electronically signed by: Carlos Alberto Swenson M.D. 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
[2022-04-20] MEDS ORDERED: POTASSIUM CHLORIDE CRTAB 20 MEQ TABCR PO STA (08:01)
[2022-04-20] MEDS: MAGNESIUM SULFATE / D5W 1 GM/100 ML BAG IV SCH ×3 (09:24→12:58)
[2022-04-20] MEDS: FAMOTIDINE 20 MG in SYRINGE 3 ML IV SCH (09:25)
[2022-04-20] MEDS: ENOXAPARIN INJ 40 MG/0.4 ML SYR SQ SCH (09:25)
[2022-04-20] MEDS: INSULIN ASPART PER UNIT SC SCH ×4 (09:28→21:03)
[2022-04-20] MEDS: LANTUS PER UNIT CHARGE SQ SCH ×2 (09:28→21:00)
--- NOTE | 2022-04-20 10:34 | Surgery Progress Note ---
Date of Service April 20, 2022 Assessment & Plan (1) Cecal volvulus: Plan: POD#5 s/p right hemicolectomy WBC 7.5, Hbg 12.3, K: 3.4 (being repleted) Patient reporting some nausea/pain this morning, outside of this AM she last took narcotics yesterday around noon Tolerating small amounts of fulls. Ostomy is functioning nicely Will obtain KUB just for evaluation, however no plans in current management at this time Appreciate hospitalists assistance with patient Admission and Anticipated Discharge Date Admission Date: April 16, 2022 Supervising Physician Co-Signing Physician Notes I personally saw and evaluated the patient with Tierra Luna PA-C and agree with the assessment and plan. 51-year-old female status post open right hemicolectomy for cecal volvulus, postop day 5 We will keep her on full liquids, she did throw up once and thought maybe she overdid it physically yesterday or could be the pain medication We will order a KUB to see if there is any small bowel dilation indicating a possible ileus She continues with ileostomy output Encourage ambulation I-S Subjective Patient states she had a good day yesterday, but feeling a little worse this AM. Reports some pain and nausea. Tolerating fulls, but only small amounts. Physical Exam Physical Exam: awake/alert, no distress Gastrointestinal (Abdomen): Inspection/Auscultation: abdomen not distended Percussion/Palpation: + abdomen tender (expected tyler incisional discomfort) and abdomen soft ostomy viable with + liquid stool in bag Results & Data ([facility]) Vital Signs (Past 12 Hours) Vital Signs Temp Pulse Resp BP Pulse Ox O2 Del Method 04/20/22 07:35 36.8 C 81 16 125/74 94 Room Air PG Care Time/CCT Total # of Minutes Spent Total Time Spent with Patient: Total time spent is greater than 50% in coordination of care (as documented) at patient's floor/unit and/or counseling patient: Coding Level of Care Code None Diagnoses Cecal volvulus K56.2
[2022-04-20] MEDS ORDERED: oxyCODONE HCL IR 5 MG TAB (IMMEDIATE RELEASE) PO PRN ×2 (10:35)
[2022-04-20] MEDS: ACETAMINOPHEN 325 MG TAB PO PRN ×3 (11:49→23:02)
--- NOTE | 2022-04-20 12:22 | XRay Report ---
XR abdomen 2V w PA chest CLINICAL HISTORY: abdominal pain, check for any free air, f/u opacit TECHNIQUE: 2 views of the abdomen were obtained. A single view of the chest was obtained. Comparison: Comparison is made to chest radiograph 04/18/2022 FINDINGS: No lines and tubes are seen. The cardiomediastinal silhouette is normal. Atelectasis is noted in the lungs without evidence of airspace opacity. No evidence of pleural effusion or pneumothorax. Midline abdominal laura are seen. The bowel gas pattern is nonobstructive. A moderate amount of sto ol is noted within the large bowel. IMPRESSION: No acute abnormality and in particular no evidence of pneumoperitoneum. ACT 112: Negative or not required by law. Electronically signed by: Carlos Alberto Swenson M.D. 04/20/2022 12:21 PM
[2022-04-20] MEDS: CARBOHYDRATES FOR HYPOGLYCEMIA PO PRN ×2 (17:24→17:56)
[2022-04-20] MEDS: PROMETHAZINE HCL 12.5 MG in SODIUM CHLORIDE 0.9% 50 ML IV PRN (22:44)
[2022-04-21] MEDS: ACETAMINOPHEN 325 MG TAB PO PRN ×4 (04:07→19:42)
[2022-04-21] MEDS: PIPERACILLIN/TAZOBACTAM 3.375 GM in DEXTROSE 5% 100 ML IV SCH ×3 (04:07→19:42)
[2022-04-21] MEDS: ENOXAPARIN INJ 40 MG/0.4 ML SYR SQ SCH (08:05)
[2022-04-21] MEDS: FAMOTIDINE 20 MG in SYRINGE 3 ML IV SCH (08:10)
--- NOTE | 2022-04-21 08:16 | Hospitalist Progress Note ---
Date of Service April 21, 2022 Assessment & Plan (1) Cecal volvulus: Plan: Admitted for acute RLQ abdominal pain, imaging concerning for cecal volvulus or an internal hernia, admitted by surgical team. Interestingly she was to be set up for her first c-scope this upcoming Thursday. POD#6 s/p Exploratory Lapratomy, Right hemicolectomy, Diverting Ileostomy(Not Applicable) - Kole Alcala DO. EBL 10cc Wound RN consulted Path: - Mucosal hemorrhage of the cecum consistent with the clinical history of a cecal volvulus is seen. Fibrous obliteration of the appendix is noted. No tumor seen. - Please note that gross examination in this case revealed congestion of the subserosal vessels and a dense adhesive band extending from the mid point of the appendix to the proximal ascending colon. Zosyn IV abx continued (day 6) WBC trended down, wnl and remained Temp 38.7C on 04/17, nothing since . Had been on scheduled IV tylenol however. BCx remain NGTD, Lactic wnl. Afebrile since UA w/o infxn, CXR resolution of opacity w/ use of incentive spirometer Pain control/antiemetic/bowel regimen per primary Advanced to DM I diet, added low fiber and asked nutrition to also provide assistance, KUB 04/20 w/o obstruction of pneumoperitoneum. 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 Takes 7 novolin and 3 novolog in the evening. DOES NOT HAVE A PUMP Typically on lisinopril, simvastatin for prevention Utilized glargine 6u BID, increased and then had low BSG and decreased/adjusted SSI Consulted pharmacy for assistance getting back on closer to home regimen/adjustments Monitor BSGs Monitor for any hypoglycemia -- issues w/ confusion/syncope/seizures in the past-- NONE reported w/ prior lows inpatient currently (3) Hypercholesterolemia: Plan: as mentioned above may hold this med till discharge (4) Uterine mass: Plan: noted on CT abd/pel, most likely a fibroid needs DIRECTOR OF CLINICAL EDUCATION f/u as an outpatient after recovery (recently seen prior to admit) -- arrange f/u at d/c Plan continued inpatient stay diet advanced, changed to low fiber wound consult for ostomy, CM following for HH therapy/wound follow up hospitalist service to follow along Admission and Anticipated Discharge Date Admission Date: April 16, 2022 Supervising Physician Co-Signing Physician Notes Attending Attestation - Chart reviewed, care plan d/w JUNIOR Lewis. I agree w/ the torres components of her documentation. Colton Syed MD Subjective eval this morning doing well, some nausea but no emesis pain controlled with Tylenol surgery advanced to regular diet today, but changed to low fiber and I asked conciliator to see for additional recommendations given patient w/ new diverting ostomy. no fever/chills, no chest pain. Surgery anticipating d/c in next 24-48 hours but will monitor progress. Questions/concerns addressed at this time. Physical Exam Physical Exam: General: WD/WN sitting up in bed, appears comfortable but reports she had some nausea with emesis this morning, NAD currently HEENT: head normocephalic, atraumatic, mmn, trachea midline Resp: CTAb, slightly diminished in the bases IMPROVED, no crackles/wheezing/ra les, on room air CV: RRR, no m/r/g, no pitting edema/calf tenderness GI: soft, + BS, decreased tenderness to palpation but tender around incision, abdomen soft, appropriately tender to palpation around incisions, prior dressing removed/c/d/i currently, ostomy beefy red, liquid stool from ileostomy : no paul MSK/NEURO: no focal deficit Psych: alert, oriented to person/place/time Results & Data Results & Data ([facility]) Vital Signs (Past 12 Hours) Vital Signs Temp Pulse Resp BP Pulse Ox O2 Del Method 04/21/22 07:17 36.8 C 84 16 122/66 95 Room Air 04/20/22 21:36 36.8 C 86 16 117/72 96 Room Air Laboratory Results 04/21/22 04/21/22 04/21/22 Range/Units 11:51 09:05 08:29 Sodium (136-145) mmol/L Potassium 3.7 Chloride (98-107) mmol/L Carbon Dioxide (21-32) mmol/L Anion Gap (3-11) BUN (6-23) mg/dl Creatinine (0.6-1.2) mg/dl Est Cr Clr Drug Dosing ml/min Est GFR ( Amer) ml/min Est GFR (Non-Af Amer) ml/min BUN/Creatinine Ratio (10-20) Glucose (70-99(Fasting)) mg/dl POC Glucose 189 H 204 H (70-99) mg/dl Calcium (8.5-10.1) mg/dl Magnesium (1.7-2.4) mg/dl Total Bilirubin (0.2-1.0) mg/dl AST 25 ALT (7-52) U/L Alkaline Phosphatase (34-104) U/L Total Protein (6.0-8.3) gm/dl Albumin (3.4-5.0) gm/dl Globulin (2.5-4.0) gm/dl Albumin/Globulin Ratio (0.9-2) 04/21/22 04/20/22 04/20/22 Range/Units 07:07 20:34 18:16 Sodium 135 L (136-145) mmol/L Potassium TNP Chloride 105 (98-107) mmol/L Carbon Dioxide 25 (21-32) mmol/L Anion Gap 5 (3-11) BUN 9 (6-23) mg/dl Creatinine 0.45 L (0.6-1.2) mg/dl Est Cr Clr Drug Dosing 134.5 ml/min Est GFR ( Amer) 136.4 ml/min Est GFR (Non-Af Amer) 117.7 ml/min BUN/Creatinine Ratio 20.0 (10-20) Glucose 209 H (70-99(Fasting)) mg/dl POC Glucose 185 H 121 H (70-99) mg/dl Calcium 7.6 L (8.5-10.1) mg/dl Magnesium 1.8 (1.7-2.4) mg/dl Total Bilirubin 0.5 (0.2-1.0) mg/dl AST TNP ALT 21 (7-52) U/L Alkaline Phosphatase 112 H (34-104) U/L Total Protein 5.4 L (6.0-8.3) gm/dl Albumin 2.8 L (3.4-5.0) gm/dl Globulin 2.6 (2.5-4.0) gm/dl Albumin/Globulin Ratio 1.1 (0.9-2) 04/20/22 04/20/22 04/20/22 Range/Units 17:37 17:17 17:17 Sodium (136-145) mmol/L Potassium Chloride (98-107) mmol/L Carbon Dioxide (21-32) mmol/L Anion Gap (3-11) BUN (6-23) mg/dl Creatinine (0.6-1.2) mg/dl Est Cr Clr Drug Dosing ml/min Est GFR ( Amer) ml/min Est GFR (Non-Af Amer) ml/min BUN/Creatinine Ratio (10-20) Glucose (70-99(Fasting)) mg/dl POC Glucose 59 L* 61 L* 66 L* (70-99) mg/dl Calcium (8.5-10.1) mg/dl Magnesium (1.7-2.4) mg/dl Total Bilirubin (0.2-1.0) mg/dl AST ALT (7-52) U/L Alkaline Phosphatase (34-104) U/L Total Protein (6.0-8.3) gm/dl Albumin (3.4-5.0) gm/dl Globulin (2.5-4.0) gm/dl Albumin/Globulin Ratio (0.9-2) Diagnostic Findings Chest/Abdomen X-ray 04/20/22 09:50 XR abdomen 2V w PA chest CLINICAL HISTORY: abdominal pain, check for any free air, f/u opacit TECHNIQUE: 2 views of the abdomen were obtained. A single view of the chest was obtained. Comparison: Comparison is made to chest radiograph 04/18/2022 FINDINGS: No lines and tubes are seen. The cardiomediastinal silhouette is normal. Atelectasis is noted in the lungs without evidence of airspace opacity. No evidence of pleural effusion or pneumothorax. Midline abdominal laura are seen. The bowel gas pattern is nonobstructive. A moderate amount of stool is noted within the large bowel. IMPRESSION: No acute abnormality and in particular no evidence of pneumoperitoneum. ACT 112: Negative or not required by law. Electronically signed by: Carlos Alberto Swenson M.D. 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
--- NOTE | 2022-04-21 08:50 | Surgery Progress Note ---
Date of Service April 21, 2022 Assessment & Plan (1) H/O hemicolectomy: Plan: Continues to slowly improve. Yesterday days REINA looks good. She would like to try regular food so we will up her regular diet. She will need visiting nurses to help with her stoma adjustment going home. Case management has been talking with her. I am anticipating discharge in the next 24 to 48 hours. Admission and Anticipated Discharge Date Admission Date: April 16, 2022 Subjective Patient continues to improve. Still dealing with some mild nausea at times. Only needing Tylenol for pain. She is tolerating full liquids Physical Exam Physical Exam: Alert. No acute distress Her incision is clean dry intact. No sign of infection. The stoma is functioning nicely Results & Data ([facility]) Vital Signs (Past 12 Hours) Vital Signs Temp Pulse Resp BP Pulse Ox O2 Del Method 04/21/22 07:17 36.8 C 84 16 122/66 95 Room Air 04/20/22 21:36 36.8 C 86 16 117/72 96 Room Air PG Care Time/CCT Total # of Minutes Spent Total Time Spent with Patient: Total time spent is greater than 50% in coordination of care (as documented) at patient's floor/unit and/or counseling patient: Coding Level of Care Code None Diagnoses H/O hemicolectomy Z90.49
[2022-04-21 08:52] LABS: Alanine Aminotransferase 21 U/L (7-52); Albumin Globulin Ratio 1.1 (0.9-2); Albumin Level 2.8 gm/dl (3.4-5.0); Alkaline Phosphatase 112 U/L (34-104); Anion Gap 5 (3-11); Bilirubin,Total 0.5 mg/dl (0.2-1.0); Blood Urea Nitrogen 9 mg/dl (6-23); Calcium 7.6 mg/dl (8.5-10.1); Carbon Dioxide 25 mmol/L (21-32); Chloride 105 mmol/L (98-107); Creatinine Clr Calc Pharmacy 134.5 ml/min; Est GFR (African American) 136.4 ml/min; Est GFR (Non-African American) 117.7 ml/min; Globulin 2.6 gm/dl (2.5-4.0); Glucose 209 mg/dl (70-99(Fasting)); Magnesium 1.8 mg/dl (1.7-2.4); Sodium 135 mmol/L (136-145); Total Protein 5.4 gm/dl (6.0-8.3)
[2022-04-21] MEDS: PROMETHAZINE HCL 12.5 MG in SODIUM CHLORIDE 0.9% 50 ML IV PRN (08:56)
[2022-04-21] MEDS ORDERED: MAGNESIUM SULFATE / D5W 1 GM/100 ML BAG IV ONE (09:05)
[2022-04-21] MEDS ORDERED: PHARMACY GLYCEMIC MGMT CONSULT PRN (09:05)
[2022-04-21] MEDS: LANTUS PER UNIT CHARGE SQ SCH (09:06)
[2022-04-21] MEDS: INSULIN ASPART PER UNIT SC SCH ×4 (09:07→20:06)
--- NOTE | 2022-04-21 10:15 | Pharmacy Report ---
Pharmacy Glycemic Short Note 2 - Date of Service April 21, 2022 - Glycemic Short BSG Results (Last 24 hours): 04/20/22 04/20/22 04/20/22 12:26 17:17 17:17 Glucose POC Glucose 252 H 66 L* 61 L* 04/20/22 04/20/22 04/20/22 17:37 18:16 20:34 Glucose POC Glucose 59 L* 121 H 185 H 04/21/22 04/21/22 07:07 08:29 Glucose 209 H POC Glucose 204 H OUTPATIENT ANTIDIABETIC REGIMEN: * NPH 27 units SQ QAM, 7 units SQ QPM * NovoLog 10 units SQ QAM, 3 units SQ QPM ASSESSMENT: * 51 year old female, type 1 DM, admitted with abdominal pain, found to have cecal volvulus, POD#6 s/p right hemicolectomy. * Managed on NPH and NovoLog as listed above at home, has been on Lantus for basal while inpatient. Hospitalist service making some changes to loosen parameters yesterday d/t BSG 66mg/dl, but now BSGs > 200mg/dl. * Patient difficult to manage at this time with nausea and diet changes, trying to advance to regular diet today, although appetite is very low. * Will increase basal slightly today and change to NPH tomorrow to prepare for discharge on home insulins. Surgery states DC in 24-48 hours. PLAN FOR INPATIENT GLYCEMIC CONTROL: * Basal insulin * Lantus 6 units QAM and 8 units HS today then, * NPH in AM - will determine dose in AM * Bolus insulin * NovoLog per scale ACHS or Q6hrs while NPO * Goal Range: Low 110 mg/dL - High 140 mg/dL * Correction Factor: 21 mg/dL/unit * Nutritional / Prandial insulin per carb ratio of 1 unit per 7 grams CHO consumed
[2022-04-21 10:27] LABS: Potassium 3.7 mmol/L (3.5-5.1)
[2022-04-21] MEDS ORDERED: POTASSIUM CHLORIDE CRTAB 20 MEQ TABCR PO STA (13:14)
[2022-04-21] MEDS: PATIENT'S OWN ORAL CONTRACEPTIVE PO SCH (15:22)
[2022-04-21] MEDS ORDERED: LANTUS PER UNIT CHARGE SQ SCH (21:00)
[2022-04-22] MEDS: PIPERACILLIN/TAZOBACTAM 3.375 GM in DEXTROSE 5% 100 ML IV SCH (04:09)
[2022-04-22] MEDS: ACETAMINOPHEN 325 MG TAB PO PRN ×3 (04:09→13:35)
[2022-04-22] MEDS: ENOXAPARIN INJ 40 MG/0.4 ML SYR SQ SCH (08:12)
[2022-04-22] MEDS: PATIENT'S OWN ORAL CONTRACEPTIVE PO SCH (08:13)
[2022-04-22] MEDS: FAMOTIDINE 20 MG in SYRINGE 3 ML IV SCH (08:17)
--- NOTE | 2022-04-22 08:18 | Hospitalist Progress Note ---
Date of Service April 22, 2022 Assessment & Plan (1) Cecal volvulus: Plan: Admitted for acute RLQ abdominal pain, imaging concerning for cecal volvulus or an internal hernia, admitted by surgical team. Interestingly she was to be set up for her first c-scope this upcoming Thursday. POD#7 s/p Exploratory Lapratomy, Right hemicolectomy, Diverting Ileostomy(Not Applicable) - Kole Alcala DO. EBL 10cc Wound RN consulted Path: - Mucosal hemorrhage of the cecum consistent with the clinical history of a cecal volvulus is seen. Fibrous obliteration of the appendix is noted. No tumor seen. - Please note that gross examination in this case revealed congestion of the subserosal vessels and a dense adhesive band extending from the mid point of the appendix to the proximal ascending colon. 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 Takes 7 novolin and 3 novolog in the evening. DOES NOT HAVE A PUMP Typically on lisinopril, simvastatin for prevention Pharmacy consulted to get back on home regimen 04/21, patient does have good handle on her DM and can continue to monitor/adjust her needs at home and call PCP if any issues (3) Hypercholesterolemia: Plan: as mentioned above may hold this med till discharge (4) Uterine mass: Plan: noted on CT abd/pel, most likely a fibroid needs NURSE EXTERN f/u as an outpatient after recovery (recently seen prior to admit) -- arrange f/u at d/c Plan planning for d/c today, would ensure Mag/K wnl on labs from this morning, currently pending F/u NURSE EXTERN for abn on CT on admit HH being arranged by Hospitalist service to sign off but recommend patient have her labs resulted/replacement if needed prior to discharge per primary service. Admission and Anticipated Discharge Date Admission Date: April 16, 2022 Supervising Physician Co-Signing Physician Notes Attending Attestation - Chart reviewed, care plan d/w JUNIOR Lewis. I agree w/ the torres components of her documentation. Colton Syed MD Subjective Eval this morning, doing great. Tolerating diet, ostomy w/ continued output. Labs pending from this morning and want to make sure her K/Mag wnl. She has a good handle on her DM and regularly checks/adjusts at home, follows with PCP. To alert of any needs/issues after discharge. No fever/chills, chest pain, shortness of breath. Anxious and happy about going home today, thankful for care. States surgery said possible reversal sometime in June. Questions/concerns addressed at this time. CM contacted to ensure HH aranged. Review of Systems Review of Systems: All systems reviewed & are unremarkable except as noted in HPI & below Physical Exam Physical Exam: General: WD/WN sitting up in bed, NAD, looks GOOD HEENT: head normocephalic, atraumatic, mmm, trachea midline Resp: CTAB, no w/c/r, 98% on RA CV: RRR, no m/r/g, no pitting edema/calf tenderness GI: soft, + BS, decreased tenderness to palpation, appropriately tender around incision, dressing to midline c/d/i, ostomy beefy red with liquid output : no paul MSK/NEURO: no focal deficit Psych: alert, oriented to person/place/time Results & Data Results & Data ([facility]) Vital Signs (Past 12 Hours) Vital Signs Temp Pulse Resp BP Pulse Ox O2 Del Method 04/22/22 07:13 36.7 C 90 16 120/72 98 Room Air 04/21/22 23:01 36.8 C 91 H 16 112/71 97 Room Air Laboratory Results 04/22/22 04/22/22 04/22/22 Range/Units 09:07 09:07 08:17 WBC 6.73 (4.8-10.8) K/ul RBC 4.10 (3.93-5.22) M/uL Hgb 13.4 (12.0-16.0) g/dl Hct 37.2 (34.1-44.9) % MCV 90.7 (80.0-100.0) fL MCH 32.7 (25.0-34.0) pg MCHC 36.0 (32.0-36.0) g/dL RDW Std Deviation 36.9 (36.4-46.3) fL RDW Coeff of Annika 11.2 L (11.5-14.5) % Plt Count 247 (130-400) K/uL MPV 10.1 (9.4-12.3) fL Immature Gran % (Auto) 0.4 % Neut % (Auto) 64.6 % Lymph % (Auto) 21.5 % Carolina % (Auto) 7.6 % Eos % (Auto) 5.5 % Baso % (Auto) 0.4 % Neut # (Auto) 4.34 (1.4-6.5) K/uL Lymph # (Auto) 1.45 (1.2-3.4) K/uL Carolina # (Auto) 0.51 (0.24-0.82) K/uL Eos # (Auto) 0.37 (0-0.50) K/uL Baso # (Auto) 0.03 (0-0.2) K/uL Immature Gran # (Auto) 0.03 H (0.00-0.02) K/uL Sodium Pending Potassium Pending (3.5-5.1) mmol/L Chloride Pending Carbon Dioxide Pending Anion Gap Pending BUN Pending Creatinine Pending Est Cr Clr Drug Dosing Pending Est GFR ( Amer) Pending Est GFR (Non-Af Amer) Pending BUN/Creatinine Ratio Pending Glucose Pending POC Glucose 128 H (70-99) mg/dl Calcium Pending Magnesium Pending Total Bilirubin Pending AST Pending (13-39) U/L ALT Pending Alkaline Phosphatase Pending Total Protein Pending Albumin Pending Globulin Pending Albumin/Globulin Ratio Pending 04/22/22 04/21/22 04/21/22 Range/Units 04:08 22:59 19:49 WBC (4.8-10.8) K/ul RBC (3.93-5.22) M/uL Hgb (12.0-16.0) g/dl Hct (34.1-44.9) % MCV (80.0-100.0) fL MCH (25.0-34.0) pg MCHC (32.0-36.0) g/dL RDW Std Deviation (36.4-46.3) fL RDW Coeff of Annika (11.5-14.5) % Plt Count (130-400) K/uL MPV (9.4-12.3) fL Immature Gran % (Auto) % Neut % (Auto) % Lymph % (Auto) % Carolina % (Auto) % Eos % (Auto) % Baso % (Auto) % Neut # (Auto) (1.4-6.5) K/uL Lymph # (Auto) (1.2-3.4) K/uL Carolina # (Auto) (0.24-0.82) K/uL Eos # (Auto) (0-0.50) K/uL Baso # (Auto) (0-0.2) K/uL Immature Gran # (Auto) (0.00-0.02) K/uL Sodium Potassium (3.5-5.1) mmol/L Chloride Carbon Dioxide Anion Gap BUN Creatinine Est Cr Clr Drug Dosing Est GFR ( Amer) Est GFR (Non-Af Amer) BUN/Creatinine Ratio Glucose POC Glucose 130 H 126 H 130 H (70-99) mg/dl Calcium Magnesium Total Bilirubin AST (13-39) U/L ALT Alkaline Phosphatase Total Protein Albumin Globulin Albumin/Globulin Ratio 04/21/22 04/21/22 04/21/22 Range/Units 17:13 11:51 09:05 WBC (4.8-10.8) K/ul RBC (3.93-5.22) M/uL Hgb (12.0-16.0) g/dl Hct (34.1-44.9) % MCV (80.0-100.0) fL MCH (25.0-34.0) pg MCHC (32.0-36.0) g/dL RDW Std Deviation (36.4-46.3) fL RDW Coeff of Annika (11.5-14.5) % Plt Count (130-400) K/uL MPV (9.4-12.3) fL Immature Gran % (Auto) % Neut % (Auto) % Lymph % (Auto) % Carolina % (Auto) % Eos % (Auto) % Baso % (Auto) % Neut # (Auto) (1.4-6.5) K/uL Lymph # (Auto) (1.2-3.4) K/uL Carolina # (Auto) (0.24-0.82) K/uL Eos # (Auto) (0-0.50) K/uL Baso # (Auto) (0-0.2) K/uL Immature Gran # (Auto) (0.00-0.02) K/uL Sodium Potassium 3.7 (3.5-5.1) mmol/L Chloride Carbon Dioxide Anion Gap BUN Creatinine Est Cr Clr Drug Dosing Est GFR ( Amer) Est GFR (Non-Af Amer) BUN/Creatinine Ratio Glucose POC Glucose 127 H 189 H (70-99) mg/dl Calcium Magnesium Total Bilirubin AST 25 (13-39) U/L ALT Alkaline Phosphatase Total Protein Albumin Globulin Albumin/Globulin Ratio PG Care Time/CCT Total # of Minutes Spent Total Time Spent with Patient: Total time spent is greater than 50% in coordination of care (as documented) at patient's floor/unit and/or counseling patient: Coding Level of Care Code 94200 Subseq Hosp Care Lvl 2 Diagnoses Cecal volvulus K56.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
--- NOTE | 2022-04-22 08:27 | Surgery Progress Note ---
Date of Service April 22, 2022 Assessment & Plan (1) H/O hemicolectomy: Plan: POD 7 ok for d/c with home health to assist with ostomy care seen with Dr. Alcala as above. doing better. no pain. mynor diet. no nausea today ok for d/c will need home nursing for stoma care which case management has already arranged. Admission and Anticipated Discharge Date Admission Date: April 16, 2022 Subjective tolerating regular diet, caring for ostomy Physical Exam Constitutional: WD/WN, vitals as above Gastrointestinal (Abdomen): Inspection/Auscultation: abdomen not distended Percussion/Palpation: abdomen soft ileostomy output Results & Data ([facility]) Vital Signs (Past 12 Hours) Vital Signs Temp Pulse Resp BP Pulse Ox O2 Del Method 04/22/22 07:13 36.7 C 90 16 120/72 98 Room Air 04/21/22 23:01 36.8 C 91 H 16 112/71 97 Room Air PG Care Time/CCT Total # of Minutes Spent Total Time Spent with Patient: Total time spent is greater than 50% in coordination of care (as documented) at patient's floor/unit and/or counseling patient: Coding Level of Care Code None Diagnoses H/O hemicolectomy Z90.49
[2022-04-22] MEDS ORDERED: LANTUS PER UNIT CHARGE SQ SCH (09:00)
[2022-04-22 09:27] LABS: Basophils # (auto) 0.03 K/uL (0-0.2); Basophils % (auto) 0.4 %; Eosinophils # (auto) 0.37 K/uL (0-0.50); Eosinophils % (auto) 5.5 %; Hematocrit (blood only) 37.2 % (34.1-44.9); Hemoglobin 13.4 g/dl (12.0-16.0); Immature Granulocytes # (auto) 0.03 K/uL (0.00-0.02); Immature Granulocytes % (auto) 0.4 %; Lymphocytes # (auto) 1.45 K/uL (1.2-3.4); Lymphocytes % (auto) 21.5 %; Mean Corpuscular Hemoglobin 32.7 pg (25.0-34.0); Mean Corpuscular Volume 90.7 fL (80.0-100.0); Mean Platelet Volume 10.1 fL (9.4-12.3); Monocytes # (auto) 0.51 K/uL (0.24-0.82); Monocytes % (auto) 7.6 %; Neutrophils # (auto) 4.34 K/uL (1.4-6.5); Neutrophils % (auto) 64.6 %; Platelet Count 247 K/uL (130-400); RDW Coefficient of Variation 11.2 % (11.5-14.5); RDW Standard Deviation 36.9 fL (36.4-46.3); White Blood Count 6.73 K/ul (4.8-10.8)
[2022-04-22] MEDS: INSULIN ASPART PER UNIT SC SCH ×2 (09:33→13:23)
[2022-04-22 09:55] LABS: Albumin Globulin Ratio 1.1 (0.9-2); Albumin Level 3.1 gm/dl (3.4-5.0); Bilirubin,Total 0.5 mg/dl (0.2-1.0); Calcium 8.1 mg/dl (8.5-10.1); Creatinine Clr Calc Pharmacy 104.3 ml/min; Est GFR (African American) 125.4 ml/min; Est GFR (Non-African American) 108.2 ml/min; Globulin 2.8 gm/dl (2.5-4.0); Magnesium 1.7 mg/dl (1.7-2.4); Potassium 3.9 mmol/L (3.5-5.1); Total Protein 5.9 gm/dl (6.0-8.3)
[2022-04-22] MEDS ORDERED: MAGNESIUM SULFATE / D5W 1 GM/100 ML BAG IV ONE (10:26)
--- NOTE | 2022-04-22 13:24 | Pharmacy Report ---
Pharmacy Glycemic Short Note 2 - Date of Service April 22, 2022 - Glycemic Short BSG Results (Last 24 hours): 04/21/22 04/21/22 04/21/22 17:13 19:49 22:59 Glucose POC Glucose 127 H 130 H 126 H 04/22/22 04/22/22 04/22/22 04:08 08:17 09:07 Glucose 153 H POC Glucose 130 H 128 H 04/22/22 12:19 Glucose POC Glucose 201 H OUTPATIENT ANTIDIABETIC REGIMEN: * NPH 27 units SQ QAM, 7 units SQ QPM * NovoLog 10 units SQ QAM, 3 units SQ QPM ASSESSMENT: 04/22: * Patient received total 34 units of insulin yesterday; 14 units basal + 20 units bolus. * BSGs yesterday were [phone] mg/dl. BSGs trended down to goal by evening. * Hesitate to change from Lantus to NPH at this time due to BSGs going lower in the evening. Basal Lantus is better choice to prevent hypoglycemia. * Continued with Lantus BID today. Background 04/21/22: * 51 year old female, type 1 DM, admitted with abdominal pain, found to have cecal volvulus, POD#6 s/p right hemicolectomy. * Managed on NPH and NovoLog as listed above at home, has been on Lantus for basal while inpatient. Hospitalist service making some changes to loosen parameters yesterday d/t BSG 66mg/dl, but now BSGs > 200mg/dl. * Patient difficult to manage at this time with nausea and diet changes, trying to advance to regular diet today, although appetite is very low. * Will increase basal slightly today and change to NPH tomorrow to prepare for discharge on home insulins. Surgery states DC in 24-48 hours. PLAN FOR INPATIENT GLYCEMIC CONTROL: * Basal insulin * Lantus 7 units SQ BID * Bolus insulin * NovoLog per scale ACHS or Q6hrs while NPO * Goal Range: Low 110 mg/dL - High 140 mg/dL * Correction Factor: 21 mg/dL/unit * Nutritional / Prandial insulin per carb ratio of 1 unit per 7 grams CHO consumed
--- NOTE | 2022-04-24 21:13 | Discharge Summary ---
Date of Service April 24, 2022 Admission HPI Per Admitting Provider This is a 51-year-old female with no prior abdominal surgeries who was in her usual state of health until this morning when she woke up with some generalized abdominal pain. She notes that the pain moved throughout her abdomen but appeared to be most severe on the right side of her abdomen. She did note that the pain improved with certain positions but otherwise did not note any palliative factors. She did not note any provocative factors. She did not have any nausea or vomiting but did force herself to vomit with no improvement of her symptoms. She said that she had a normal bowel movement yesterday but has not had a bowel movement this today and has not been passing flatus since her symptoms began. As noted above she has no prior abdominal surgeries. She notes that her most recent oral intake of solid food was at approximately 12:30 PM today. She said that she did have some water since then but feels that she has not had any since 6:00 PM. The patient notes that she is a type I diabetic and took 27 units of novel and insulin and 10 units of NovoLog insulin today. She notes that she has not taken any other diabetic medications today. The patient notes that she leads an active lifestyle when she is feeling well and feels that she could easily walk 1 mile on a flat surface and can negotiate at least 2 flights of steps without any chest pain or shortness of breath or other limiting factors. Since arrival to the emergency department the patient has had labs and imaging which independent reviewed. A CT scan of the abdomen pelvis showed the patient had swirling in the right upper nominal right lower quadrant mesentery. The cecum appeared to be displaced to the left side of the abdomen resulting in narrowing of the ascending colon. There is gaseous distention of the cecum and splenic flexure raising the possibility of a possible internal hernia or cecal volvulus. There is mesenteric edema and trace ascites in the right mid abdomen. There is no evidence of small bowel obstruction or pneumoperitoneum. Labs include a CBC her white blood cell count, hemoglobin, hematocrit, and platelet count were all within normal range. Chemistry profile showed sodium, potassium, BUN, and creatinine were all within the normal range. There is no elevation of patient's LFTs or lipase. Urinalysis was not indicative of infection. A COVID test is negative. At the time of my interview the patient was resting comfortably in bed and she was in no distress. Discharge Data Consultations 04/16/22 02:39 Consult Hospitalist Routine Procedures Performed Operation Date: 04/15/22 23:15 Actual Procedures p Exploratory Lapratomy, Right hemicolectomy, Diverting Ileostomy(Not Applicable) - Kole Alcala DO [facility] Course (1) Cecal volvulus: This is a 51-year-old female who presented to [facility] emergency department secondary to abdominal pain. Patient's imaging at time of presentation to the emergency department included a CT scan that showed findings concerning for a cecal volvulus. Because these findings the patient was taken to the operating room on 04/16/[address] Alcala where she underwent an exploratory laparotomy with a right hemicolectomy and a diverting ileostomy. Patient's postoperative course was without complication. It did however, take patient several days to have full return of bowel function. Because of the slow return of her bowel function her diet was slowly advanced beginning with clear liquids and slowly advancing to solid food. She was mobilized as able postoperatively. She was deemed stable for discharge home on postop day #7. She was instructed on appropriate wound care, diet, and activity. She was instructed to follow-up with Dr. Alcala in the clinic in 1 to 2 weeks. 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
== END 2022-04-22 13:55 | disposition home or self-care (01) | DRG 330 ==
LOC: ED 17:53 → OR 22:46 → 3N 04-16 00:58

== ENCOUNTER 2022-08-14 05:41 | Inpatient (IN) ==
--- NOTE | 2022-08-12 08:36 | Anesthesiology Consultation ---
Date of Service August 12, 2022 Assessment & Plan (1) Encounter for pre-operative examination: Chart Review Chart Review: Acceptable Risk for Surgery and Patient NOT seen in Pre Admission Testing - Check test AM DOS - Check BSG AM DOS - Per general surgeon note 08/11/22= discussed patient with vascular surgeon (Dr. Molina). Did not feel she would need [place] filter and felt it would be safe for patient to proceed with ileostomy reversal. Recommend Eliquis stopped 2 days prior and then resume Eliquis postoperatively. -COVID screening: Per PAT nursing assessment on 08/05/22. No known COVID-19 positive contacts or current COVID-19 related symptoms. Travel screen negative. Patient vaccinated for Covid. At surgeon discretion if preop Covid testing being done. Exploratory Laparotomy, Right hemicolectomy, Diverting Ileostomy 04/15/22= Done under GA with Grade 3 view with MAC #3. ETT #7.5. History Surgery Operation Date: 06/26/22 10:35 Proposed Procedures p Open Ileostomy Reversal - Kole Alcala DO Operation Date: 08/14/22 07:15 Proposed Procedures p Open Ileostomy Reversal - Kole Alcala, DO Height/Weight Height: 5 ft 5 in Weight: 68.039 kg Allergies Allergy/AdvReac Type Severity Reaction Status Date / Time No Known Allergies Allergy Verified 08/11/22 13:34 Medications Home Medications Medication Instructions Recorded Confirmed Last Taken lancets 30 gauge (Lite Touch #300 ea 11/08/18 08/11/22 Unknown Lancets) multivitamin-ferrous 1 tab PO QAM 11/08/18 08/11/22 Unknown fumarate-folic acid 18 mg-400 mcg tablet (Centrum Complete) simvastatin 80 mg tablet 80 mg PO QPM #90 tabs 06/20/21 08/11/22 Unknown insulin syringe-needle U-100 0.5 #150 ea 07/24/21 08/11/22 Unknown mL 31 gauge x 5/16" (BD Insulin Syringe Ultra-Fine) blood sugar diagnostic (FreeStyle #300 ea 12/24/21 08/11/22 Unknown Lite Strips) calcium 600 mg capsule 600 mg PO QAM 04/14/22 08/11/22 Unknown insulin NPH isoph U-100 human 100 27 unit subcut UD 04/14/22 08/11/22 Unknown unit/mL subcutaneous suspension (Novolin N NPH U-100 Insulin isophane) insulin aspart U-100 100 unit/mL 8 unit subcut UD 04/14/22 08/11/22 Unknown subcutaneous solution (Novolog U-100 Insulin aspart) lisinopril 10 mg tablet 10 mg PO QPM 04/14/22 08/11/22 Unknown norgestimate-ethinyl estradiol 1 tab PO QPM #84 tabs 04/14/22 08/11/22 Unknown 0.18 mg/0.215mg/0.25mg-35 mcg(28)tablet (Tri-Sprintec (28)) apixaban 5 mg tablet (Eliquis) 5 mg PO BID #60 tabs 07/19/22 08/11/22 Unknown Past Medical History Medical History 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 (US on 08/05) History of joint pain right hip Hypercholesterolemia Ileostomy in place Nausea and vomiting after administration of anesthetic agent Trigger finger of right hand Past Family History Family History Aunt Breast cancer paternal aunt Pancreatic cancer maternal aunt Mother Hypertension Sister Skin cancer Father Myelodysplastic syndrome Bladder cancer Family/Other Breast cancer, Onset Age: 53 maternal cousin Denies family history of Ovarian cancer Prostate cancer Diabetes Depression Heart disease Myocardial infarction Osteoarthritis Lung cancer Colorectal cancer Pulmonary embolism Stroke Past Surgical History Surgical History H/O hemicolectomy (04/15/22) Exploratory Lapratomy, Right hemicolectomy, Diverting Ileostomy(Not Applicable) - Kole Alcala, H/O shoulder surgery Left shoulder capsulitis H/O wisdom tooth extraction History of arthroscopy of right shoulder with debridement and capsular release, subacromial decompression- 10/23/14- Dr. Brock History of hemicolectomy History of trigger finger Hx of tonsillectomy S/P fine needle aspiration remarkable for hyperplasia Social History Smoking Status: Never smoker Do You Dip or Chew Tobacco: No Hx Alcohol Use: No Hx Substance Use: No substance use type: does not use Lab Results Anesthesia Preop Results Results Anesthesia Widget: WBC 5.41 K/ul (4.8-10.8) 08/11/22 Hgb 14.3 g/dl (12.0-16.0) 08/11/22 Hct 42.3 % (37.0-47.0) 08/11/22 Plt 199 K/uL (130-400) 08/11/22 Na 137 mmol/L (136-145) 08/11/22 K 4.5 mmol/L (3.5-5.1) 08/11/22 Cl 103 mmol/L (98-107) 08/11/22 CO2 29 mmol/L (21-32) 08/11/22 BUN 6 mg/dl (6-23) 08/11/22 Creat 0.67 mg/dl (0.6-1.2) 08/11/22 Glucose Level 152 mg/dl (70-99(Fasting)) H 08/11/22 HA1c 5.7 % (4.5-5.6) H 08/11/22 Testing Electrocardiogram Date: 04/17/22 Findings: + ST @ (107bpm) Incomplete RBBB Otherwise normal EKG per cardio Chest X-Ray Date: 04/20/23 XR abdomen 2V w PA chest FINDINGS: No lines and tubes are seen. The cardiomediastinal silhouette is normal. Atelectasis is noted in the lungs without evidence of airspace opacity. No evidence of pleural effusion or pneumothorax. Midline abdominal laura are seen. The bowel gas pattern is nonobstructive. A moderate amount of stool is noted within the large bowel. IMPRESSION: No acute abnormality and in particular no evidence of pneumoperitoneum. Other Testing Lower extremity venous duplex evaluation 08/05/22 = persistent, occlusive deep vein thrombosis of the mid and distal segment of one of the right peroneal veins. No evidence of DVT within the right SFV, SFJ, VS, pop V, PTV and proximal peroneal veins. No evidence of DVT within the left SSV. Compared to prior exam on 06/11/2022 at [facility], right peroneal vein thrombosis is unchanged
[2022-08-14] MEDS ORDERED: LACTATED RINGER'S 1,000 ML IV SCH (06:00)
[2022-08-14] MEDS ORDERED: ceFAZolin 2000MG 2,000 MG/15 ML SYR IV SCH (06:00)
[2022-08-14] MEDS ORDERED: HEPARIN SOD 5,000 UNIT/0.5 ML VIAL SQ SCH (06:00)
[2022-08-14] MEDS ORDERED: fentaNYL citrate PF 100 MCG/2 ML VIAL ONE ×2 (06:45→08:11)
[2022-08-14] MEDS ORDERED: SCOPOLAMINE 1 MG TDSY TD ONE (07:08)
--- NOTE | 2022-08-14 07:08 | History & Physical Bridge Note ---
Date of Service August 14, 2022 History & Physical Bridge Note I have examined the patient, reviewed the History & Physical and in the interval since the performance of the History & Physical I have noted the following changes of clinical significance: no changes noted
[2022-08-14] MEDS ORDERED: ePHEDrine sulfate 50 MG/ML AMP IV PRN (07:14)
[2022-08-14] MEDS ORDERED: HYDROmorphone INJ 1 MG/ML SYRINGE IV PRN (07:14)
[2022-08-14] MEDS ORDERED: PROMETHAZINE HCL 12.5 MG in SODIUM CHLORIDE 0.9% 50 ML IV PRN (07:14)
[2022-08-14] MEDS ORDERED: ONDANSETRON INJ 2 MG/ML 2 ML VIAL IV PRN (07:14)
[2022-08-14] MEDS ORDERED: fentaNYL citrate PF 100 MCG/2 ML VIAL IV PRN (07:14)
[2022-08-14] MEDS ORDERED: NALOXONE HCL 0.4 MG/1 ML VIAL/CARP IV PRN (07:14)
[2022-08-14] MEDS ORDERED: ATROPINE SULFATE 0.1 MG/ML 10ML SYR IV PRN (07:14)
[2022-08-14] MEDS ORDERED: LABETALOL HCL IV 5 MG/ML 20ML IV PRN (07:14)
[2022-08-14] MEDS ORDERED: FLUMAZENIL 0.1 MG/1 ML 10 ML VIAL IV PRN (07:14)
[2022-08-14] MEDS ORDERED: DEXAMETHASONE SOD INJ 4 MG/ML VIAL ONE (07:39)
[2022-08-14] MEDS ORDERED: ROCURONIUM BROMIDE 10 MG/ML 5 ML VIAL IV ONE (07:39)
[2022-08-14] MEDS ORDERED: PROPOFOL IV EMULSION 10 MG/ML 20 ML VIAL IV ONE (07:39)
[2022-08-14] MEDS ORDERED: SUCCINYLCHOLINE CHLORIDE 20 MG/ML 10 ML VIAL IV ONE (07:39)
[2022-08-14] MEDS ORDERED: NEOSTIGMINE METHYLSULFATE 1 MG/ML 10ML VIAL ONE (07:39)
[2022-08-14] MEDS ORDERED: GLYCOPYRROLATE 0.2 MG/ML VIAL ONE ×2 (07:39)
[2022-08-14] MEDS ORDERED: ONDANSETRON INJ 2 MG/ML 2 ML VIAL ONE (07:39)
--- NOTE | 2022-08-14 08:59 | Operative Report ---
PG Post Operative Report Pre & Post Diagnosis Operation Date: 08/14/22 07:15 Pre-Op Diagnosis: Ileostomy, History of Cecal Volvulus, History of Hemicolectomy Post-Op Diagnosis: Open Ileostomy reversal with partial small bowel resection I identified the patient and participated in the time-out.: Yes Procedure Operation Date: 08/14/22 07:15 Actual Procedures p Open Ileostomy Reversal(Right);partial small bowel resection. - Kole Alcala DO Surgeon Kole Alcala DO Blender Helper aspen Luna Estimated Blood Loss 10 Findings Consistent with Post-Op Diagnosis Specimens portion of small bowel Description of Procedure After informed consent was obtained the patient was taken to the operating room and placed in supine position. After successful intubation we used a 2-0 silk to close the ileostomy. The abdomen was then sterilely prepped and draped in usual fashion. I began by using a 15 blade scalpel to make an elliptical incision around the ileostomy. Traction/ countertraction cautery were used to carry down the soft tissue around the ileostomy itself. Eventually I was able to work my way down to the fascial opening. I grasped the edges of the fascial opening with Allis clamps and elevated them. I again used blunt dissection as well as sharp scissor lysis to detach the small bowel from the fascia until I was able to eventually deliver the afferent and efferent limbs out through the incision. The portion of the small bowel involved in the ileostomy appeared to be somewhat inflamed and thickened and therefore I decided to resect it. A TAVIA brown cartridge linear stapler was used to transect the small bowel proximal to the ileostomy as well as distal. LigaSure device was then used to take down the mesentery and the portion of small bowel was passed off. Next we performed a nhtg-en-ciac small bowel anastomosis using a TAVIA brown cartridge 60 mm stapler. We then closed the common enterotomy using handsewn technique with 3-0 Monocryl for the mucosal/serosal layer in a running fashion followed by 3-0 silk in interrupted fashion in Lembert technique. 3-0 silk was also used to place a crotch stitch. The mesenteric defect was closed using 2-0 Vicryl in a running fashion. Anastomosis was widely patent and did not show any evidence of ischemia. It was reduced back into the abdominal cavity. The fascia was then closed primarily using #1 PDS in a running fashion. Soft tissue was thoroughly irrigated and the skin was closed using skin laura over a Kit drain. Silver dressing was applied. The patient was awakened extubated and transferred to recovery in stable condition. My physician diver assistant was present for the entire case was instrumental in providing exposure through my dissection assisting with the anastomosis wound closure and dressing placement. I attest to the content of the Intraoperative Record and any orders documented therein. Any exceptions are noted below.
[2022-08-14] MEDS ORDERED: SODIUM CHLORIDE 0.9% 50 ML BAG ONE ×2 (09:03→10:14)
[2022-08-14] MEDS ORDERED: PROMETHAZINE HCL INJ 25 MG/ML 1 ML VIAL ONE ×2 (09:04→10:12)
[2022-08-14] MEDS ORDERED: ACETAMINOPHEN 1,000 MG/100 ML VIAL IV STA (09:21)
[2022-08-14] MEDS ORDERED: ACETAMINOPHEN 1000 MG/100 ML IV IV ONE (09:22)
[2022-08-14] MEDS ORDERED: PROMETHAZINE HCL 12.5 MG in SODIUM CHLORIDE 0.9% 50 ML IV STA (10:13)
--- NOTE | 2022-08-14 10:49 | Anesthesiology Progress Note ---
Date of Service August 14, 2022 Anesthesia Post Procedure Vital Signs Vital Signs: Temp Pulse Pulse Resp BP BP Pulse Ox 08/14/22 10:30 61 17 105/64 98 08/14/22 10:20 63 18 106/64 99 08/14/22 10:40 36.4 C L 79 19 124/62 98 08/14/22 10:10 55 L 16 115/63 98 08/14/22 10:00 72 20 111/62 98 08/14/22 09:50 54 L 18 110/61 100 08/14/22 09:40 56 L 16 106/65 99 08/14/22 09:30 57 L 14 118/58 L 100 08/14/22 09:20 54 L 18 110/63 100 08/14/22 09:10 60 20 107/56 L 100 08/14/22 09:00 61 16 91/57 L 100 08/14/22 08:55 36.0 C L 67 14 114/58 L 98 08/14/22 06:01 36.7 C 94 H 20 128/74 99 O2 Del Method O2 Flow Rate 08/14/22 10:30 Room Air 08/14/22 10:20 Room Air 08/14/22 10:40 Room Air 08/14/22 10:10 Room Air 08/14/22 10:00 Room Air 08/14/22 09:50 Room Air 08/14/22 09:40 Room Air 08/14/22 09:30 Room Air 08/14/22 09:20 Room Air 08/14/22 09:10 Room Air 08/14/22 09:00 Room Air 08/14/22 08:55 Oxymask 6 08/14/22 06:01 Room Air Pain Intensity Abdomen: Pain Intensity: 5 Transfer of Care Handoff Completed per policy Notes Mental Status: alert / awake / arousable Patient Amnestic to Procedure: Yes Nausea / Vomiting: adequately controlled Pain: adequately controlled Airway Patency, RR, SpO2: stable & adequate BP & HR: stable & adequate Hydration State: stable & adequate Anesthetic Complications: no major complications apparent
[2022-08-14] MEDS ORDERED: GLUCOSE 10 TAB/TUBE PO PRN (11:54)
[2022-08-14] MEDS ORDERED: oxyCODONE HCL IR 5 MG TAB (IMMEDIATE RELEASE) PO PRN ×2 (11:54)
[2022-08-14] MEDS ORDERED: GLUCAGON FOR INJ 1 MG VIAL SQ PRN (11:54)
[2022-08-14] MEDS ORDERED: PHARMACY GLYCEMIC MGMT CONSULT PRN (11:54)
[2022-08-14] MEDS ORDERED: MoRPHine SULFATE 4 MG/ML 1 ML CARP\\VIAL IV PRN (11:54)
[2022-08-14] MEDS ORDERED: GLUCOSE 40% GEL 15 GM TUBE PO PRN (11:54)
[2022-08-14] MEDS ORDERED: DEXTROSE 50% 50 ML SYRINGE IV PRN (11:54)
[2022-08-14] MEDS: INSULIN ASPART PER UNIT CHARGE SC SCH ×3 (12:52→21:33)
[2022-08-14] MEDS: LACTATED RINGER'S 1,000 ML IV SCH ×2 (12:53→17:38)
[2022-08-14] MEDS: ACETAMINOPHEN 1,000 MG/100 ML VIAL IV SCH ×2 (12:54→20:02)
--- NOTE | 2022-08-14 13:17 | Pharmacy Report ---
Pharmacy Glycemic Short Note 2 - Date of Service August 14, 2022 - Glycemic Short BSG Results (Last 24 hours): 08/14/22 08/14/22 08/14/22 06:23 09:00 09:35 POC Glucose 145 H 67 L* 73 08/14/22 08/14/22 08/14/22 10:41 12:21 12:25 POC Glucose 97 64 L* 103 H 08/14/22 12:27 POC Glucose 106 H OUTPATIENT ANTIDIABETIC REGIMEN: * Novolin N 21 units SC AM + 7 units SC PM * Novolog 8 units SC AM + 3 units SC PM * HbA1c: 5.7% (08/11/22) ASSESSMENT: * 52 yo F admitted on 08/14/22 s/p ileostomy reversal. Pharmacy has been consulted to assist with inpatient glycemic management. Patient is a well controlled Type 1 diabetic as an outpatient. Please refer to outpatient regimen and most recent HbA1c above. * Ordered a T1DM diet but barely ate anything for lunch. Did receive 4 mg of IV Dexamethasone perioperatively. * Preop BSGs were: 145 and 67 mg/dL. Postop BSG was 64 mg/dL. Patient was fortunately asymptomatic with each episode. Repeat BSG at lunchtime was 106 mg/dL. * Of note, patient did take 10 units of Novolin N this AM as well as 1 unit of Novolog prior to admission. * At this point, will hold off on any further Novolin N today. Will reassess need in the AM. Will start Novolog based on weight/stress of 1. Given BSGs so far, will target a goal BSG range of 120-160 mg/dL. PLAN FOR INPATIENT GLYCEMIC CONTROL: * Basal insulin * None * Bolus insulin * NovoLog per scale ACHS or Q6hrs while NPO * Goal Range: Low 120 mg/dL - High 160 mg/dL * Correction Factor: 60 mg/dL/unit * Nutritional / Prandial insulin per carb ratio of 1 unit per 30 grams CHO consumed
[2022-08-14] MEDS: ceFAZolin 2000MG 2,000 MG/15 ML SYR IV SCH ×2 (15:01→23:46)
[2022-08-15] MEDS: LACTATED RINGER'S 1,000 ML IV SCH ×3 (01:56→18:57)
[2022-08-15] MEDS: ACETAMINOPHEN 1,000 MG/100 ML VIAL IV SCH ×3 (04:14→20:02)
[2022-08-15] MEDS: ceFAZolin 2000MG 2,000 MG/15 ML SYR IV SCH (06:15)
[2022-08-15] MEDS: ONDANSETRON INJ 2 MG/ML 2 ML VIAL IV PRN ×2 (07:28→16:56)
[2022-08-15 09:20] LABS: Basophils # (auto) 0.04 K/uL (0-0.2); Basophils % (auto) 0.3 %; Eosinophils # (auto) 0.25 K/uL (0-0.50); Eosinophils % (auto) 1.8 %; Hematocrit (blood only) 40.9 % (37.0-47.0); Hemoglobin 14.3 g/dl (12.0-16.0); Immature Granulocytes # (auto) 0.05 K/uL (0.01-0.20); Immature Granulocytes % (auto) 0.4 %; Lymphocytes # (auto) 1.37 K/uL (1.2-3.4); Lymphocytes % (auto) 10.1 %; Mean Corpuscular Hemoglobin 32.4 pg (25.0-34.0); Mean Corpuscular Volume 92.7 fL (80.0-100.0); Mean Platelet Volume 11.1 fL (9.4-12.4); Monocytes # (auto) 0.78 K/uL (0.11-0.59); Monocytes % (auto) 5.8 %; Neutrophils # (auto) 11.05 K/uL (1.40-6.50); Neutrophils % (auto) 81.6 %; Platelet Count 197 K/uL (130-400); RDW Coefficient of Variation 11.4 % (11.5-14.5); Red Blood Count 4.41 M/uL (4.20-5.40); White Blood Count 13.54 K/ul (4.8-10.8)
[2022-08-15 09:30] LABS: BUN Creatinine Ratio 16.7 (10-20); Calcium 8.5 mg/dl (8.6-10.3); Creatinine Clr Calc Pharmacy 77.6 ml/min; Est GFR (African American) 102.7 ml/min; Est GFR (Non-African American) 88.6 ml/min; Potassium 4.7 mmol/L (3.5-5.1)
--- NOTE | 2022-08-15 09:32 | Pharmacy Report ---
Pharmacy Glycemic Short Note 2 - Date of Service August 15, 2022 - Glycemic Short BSG Results (Last 24 hours): 08/14/22 08/14/22 08/14/22 09:35 10:41 12:21 Glucose POC Glucose 73 97 64 L* 08/14/22 08/14/22 08/14/22 12:25 12:27 17:13 Glucose POC Glucose 103 H 106 H 76 08/14/22 08/15/22 08/15/22 20:53 07:45 08:37 Glucose 314 H* POC Glucose 224 H 257 H OUTPATIENT ANTIDIABETIC REGIMEN: * Novolin N 21 units SC AM + 7 units SC PM * Novolog 8 units SC AM + 3 units SC PM * HbA1c: 5.7% (08/11/22) ASSESSMENT: 08/15: * Kristie received 2 units of correctional insulin postoperatively yesterday. BSGs were 56-651-79-224 mg/dL. * Fasting BSG this AM elevated at 257 mg/dL. Starting NPH this AM. Will monitor lunchtime BSG and make decision on PM NPH dose at that time. Did tighten N ovolog parameters slightly. * Lunchtime BSG was up to 260 mg/dL. Patient did eat some lunch. Will tighten correction factor at lunchtime. Adding 5 units of NPH with dinner. 08/14: * 52 yo F admitted on 08/14/22 s/p ileostomy reversal. Pharmacy has been consulted to assist with inpatient glycemic management. Patient is a well controlled Type 1 diabetic as an outpatient. Please refer to outpatient amelia men and most recent HbA1c above. * Ordered a T1DM diet but barely ate anything for lunch. Did receive 4 mg of IV Dexamethasone perioperatively. * Preop BSGs were: 145 and 67 mg/dL. Postop BSG was 64 mg/dL. Patient was fortunately asymptomatic with each episode. Repeat BSG at lunchtime was 106 mg/dL. * Of note, patient did take 10 units of Novolin N this AM as well as 1 unit of Novolog prior to admission. * At this point, will hold off on any further Novolin N today. Will reassess need in the AM. Will start Novolog based on weight/stress of 1. Given BSGs so far, will target a goal BSG range of 120-160 mg/dL. PLAN FOR INPATIENT GLYCEMIC CONTROL: * Basal insulin * NPH 10 units SC AM * NPH 5 units SC PM * Bolus insulin * NovoLog per scale ACHS or Q6hrs while NPO * Goal Range: Low 120 mg/dL - High 160 mg/dL * Correction Factor: 30 mg/dL/unit * Nutritional / Prandial insulin per carb ratio of 1 unit per 20 grams CHO consumed
[2022-08-15] MEDS: INSULIN ASPART PER UNIT CHARGE SC SCH ×4 (09:48→20:47)
--- NOTE | 2022-08-15 09:52 | Surgery Progress Note ---
Date of Service August 15, 2022 Assessment & Plan (1) Status post reversal of ileostomy: Plan: POD#1 open ileostomy reversal WBC 13.5, Hbg stable at 14.3 Some nausea this AM, not unexpected. continue prn anti-emetics. will keep on clears for today continue current pain regimen pt with history of DVT, therefore will resume her eliquis today pharmacy assisting us with DM management OOB as tolerates, pulm toilet Awaiting return of bowel function As above. Had a bout of emesis this morning. Feeling better now and overall looks okay. We will restart Eliquis today. Pharmacy managing her blood sugars. Stay on clears until return of bowel function. Dr. Fitzpatrick covering for the weekend. Admission and Anticipated Discharge Date Admission Date: August 14, 2022 Subjective Patient reports some nausea this AM. No emesis, but got some zofran and felt some improvement. Only took in a small amount of clears for bfast. Pain is manageable. She is voiding. Physical Exam Physical Exam: awake/alert, no distress Respiratory: normal respiratory effort Gastrointestinal (Abdomen): Inspection/Auscultation: + abdominal surgical incision (surgical dressing c/d/i ); abdomen not distended Percussion/Palpation: + abdomen tender (expected tyler incisional discomfort ) and abdomen soft Results & Data Vital Signs (Past 12 Hours) Vital Signs Temp Pulse Pulse Resp BP Pulse Ox O2 Del Method 08/15/22 07:56 37.2 C 96 H 16 97/60 L 97 Room Air 08/15/22 00:00 36.6 C 83 16 106/64 97 Room Air PG Care Time/CCT Total # of Minutes Spent Total Time Spent with Patient: Total time spent is greater than 50% in coordination of care (as documented) at patient's floor/unit and/or counseling patient: Coding Level of Care Code 22412 Post Operative Follow-Up Diagnoses Status post reversal of ileostomy Z98.890
[2022-08-15] MEDS: INSULIN HUMAN NPH SC SCH (09:55)
[2022-08-15] MEDS: PROMETHAZINE HCL 12.5 MG in SODIUM CHLORIDE 0.9% 50 ML IV PRN (10:25)
[2022-08-15] MEDS ORDERED: INSULIN HUMAN NPH SC SCH (16:30)
[2022-08-15] MEDS: MoRPHine SULFATE 2 MG/ML CARP IV PRN ×2 (17:02→20:02)
[2022-08-15] MEDS: TRI-SPRINTEC PO SCH (20:01)
[2022-08-15] MEDS: APIXABAN 5 MG TABLET PO SCH (20:01)
[2022-08-16] MEDS: ACETAMINOPHEN 1,000 MG/100 ML VIAL IV SCH ×3 (03:01→20:18)
[2022-08-16] MEDS: LACTATED RINGER'S 1,000 ML IV SCH (03:01)
[2022-08-16] MEDS: CARBOHYDRATES FOR HYPOGLYCEMIA PO PRN ×7 (04:38→18:00)
[2022-08-16 06:29] LABS: Basophils # (auto) 0.03 K/uL (0-0.2); Basophils % (auto) 0.3 %; Eosinophils # (auto) 0.35 K/uL (0-0.50); Eosinophils % (auto) 3.5 %; Hematocrit (blood only) 35.8 % (37.0-47.0); Hemoglobin 12.6 g/dl (12.0-16.0); Immature Granulocytes # (auto) 0.05 K/uL (0.01-0.20); Immature Granulocytes % (auto) 0.5 %; Lymphocytes # (auto) 1.93 K/uL (1.2-3.4); Lymphocytes % (auto) 19.3 %; Mean Corpuscular Hemoglobin 32.6 pg (25.0-34.0); Mean Corpuscular Hgb Conc 35.2 g/dL (32.0-36.0); Mean Corpuscular Volume 92.7 fL (80.0-100.0); Mean Platelet Volume 10.5 fL (9.4-12.4); Monocytes # (auto) 0.59 K/uL (0.11-0.59); Monocytes % (auto) 5.9 %; Neutrophils # (auto) 7.03 K/uL (1.40-6.50); Neutrophils % (auto) 70.5 %; Platelet Count 174 K/uL (130-400); RDW Coefficient of Variation 11.6 % (11.5-14.5); RDW Standard Deviation 39.8 fL (36.4-46.3); Red Blood Count 3.86 M/uL (4.20-5.40); White Blood Count 9.98 K/ul (4.8-10.8)
[2022-08-16 06:35] LABS: BUN Creatinine Ratio 13.5 (10-20); Calcium 8.1 mg/dl (8.6-10.3); Creatinine Clr Calc Pharmacy 81.8 ml/min; Est GFR (African American) 109.5 ml/min; Est GFR (Non-African American) 94.5 ml/min; Potassium 4.3 mmol/L (3.5-5.1)
[2022-08-16] MEDS: ONDANSETRON INJ 2 MG/ML 2 ML VIAL IV PRN (07:33)
[2022-08-16] MEDS ORDERED: INSULIN HUMAN NPH SC SCH (08:30)
[2022-08-16] MEDS: PROMETHAZINE HCL 12.5 MG in SODIUM CHLORIDE 0.9% 50 ML IV PRN ×2 (08:59→20:37)
[2022-08-16] MEDS: INSULIN HUMAN NPH SC SCH (09:05)
[2022-08-16] MEDS: INSULIN ASPART PER UNIT CHARGE SC SCH ×4 (09:07→20:55)
[2022-08-16] MEDS: APIXABAN 5 MG TABLET PO SCH ×2 (09:12→20:16)
--- NOTE | 2022-08-16 09:39 | Surgery Progress Note ---
Date of Service August 16, 2022 Assessment & Plan (1) Status post reversal of ileostomy: Plan: We will keep her on clear liquids for now she had some nausea If she continues to improve throughout the day and has a more meaningful return of her bowel function, we can advance her diet this afternoon or this evening We will stop her lactated Ringer's and start her on normal saline due to her hyponatremia and decrease the rate to 80 since she is taking in some clear liquids Her pain control regimen is working well Encourage ambulation/incentive spirometry Admission and Anticipated Discharge Date Admission Date: August 14, 2022 Subjective Patient seen and examined. She is tolerating a clear liquid diet, however did have a little nausea this morning for which she required Zofran. She did have a bowel movement today but is passing very little flatus. Her abdominal pain is controlled. Afebrile. Physical Exam Constitutional: WD/WN, vitals as above Gastrointestinal (Abdomen): Soft, appropriately tender to palpation, dressing clean dry and intact Results & Data Vital Signs (Past 12 Hours) Vital Signs Temp Pulse Resp BP Pulse Ox O2 Del Method 08/16/22 07:41 36.7 C 73 20 131/74 100 Room Air PG Care Time/CCT Total # of Minutes Spent Total Time Spent with Patient: Total time spent is greater than 50% in coordination of care (as documented) at patient's floor/unit and/or counseling patient: Coding Level of Care Code 54951 Post Operative Follow-Up Diagnoses Status post reversal of ileostomy Z98.890
[2022-08-16] MEDS: SODIUM CHLORIDE 0.9% 1000ML 1,000 ML IV SCH ×2 (10:32→22:26)
[2022-08-16] MEDS: TRI-SPRINTEC PO SCH (20:16)
[2022-08-17] MEDS: ACETAMINOPHEN 1,000 MG/100 ML VIAL IV SCH (03:15)
--- NOTE | 2022-08-17 06:11 | Surgery Progress Note ---
Date of Service August 17, 2022 Assessment & Plan (1) Status post reversal of ileostomy: Plan: Patient is status post reversal of ileostomy on 08/14/2022 (postop day #3) Continue analgesics Continue antiemetics Pharmacy is assisting with glycemic management Continue to encourage ambulation and use of incentive spirometer We will discuss with attending the possibility of advancing diet this morning Check a.m. labs when available Patient is taking Eliquis so no additional DVT prophylaxis is required Admission and Anticipated Discharge Date Admission Date: August 14, 2022 Supervising Physician Co-Signing Physician Notes I personally saw and evaluated the patient with Ray Leal PA-C and agree with the assessment plan 52-year-old female status post ileostomy reversal She did have some nausea overnight but none yet today and no emesis with clear liquids Advance to full's and see how she does Hopeful for discharge home tomorrow if she is able to have her diet advanced fully Subjective Patient is resting comfortably in bed. She does note some incisional pain. She notes that she did have a bowel movement last evening. She has had intermittent nausea without emesis. She does note some improvement of her appetite. Physical Exam Gastrointestinal (Abdomen): Abdomen is soft and nondistended. Incision is clean, dry, intact with Kit d rain in place. Bowel sounds are hypoactive. Results & Data Vital Signs (Past 12 Hours) Vital Signs Temp Pulse Resp BP Pulse Ox Pulse Ox O2 Del Method 08/16/22 20:16 Room Air 08/16/22 20:16 98 08/16/22 20:26 37.1 C 75 16 119/67 98 Room Air O2 Del Method 08/16/22 20:16 08/16/22 20:16 Room Air 08/16/22 20:26 PG Care Time/CCT Total # of Minutes Spent Total Time Spent with Patient: Total time spent is greater than 50% in coordination of care (as documented) at patient's floor/unit and/or counseling patient: Coding Level of Care Code 25862 Post Operative Follow-Up Diagnoses Status post reversal of ileostomy Z98.890
[2022-08-17 06:43] LABS: Basophils # (auto) 0.01 K/uL (0-0.2); Basophils % (auto) 0.2 %; Eosinophils # (auto) 0.24 K/uL (0-0.50); Eosinophils % (auto) 3.8 %; Hematocrit (blood only) 34.9 % (37.0-47.0); Hemoglobin 12.1 g/dl (12.0-16.0); Immature Granulocytes # (auto) 0.01 K/uL (0.01-0.20); Immature Granulocytes % (auto) 0.2 %; Lymphocytes # (auto) 1.55 K/uL (1.2-3.4); Lymphocytes % (auto) 24.3 %; Mean Corpuscular Hemoglobin 32.5 pg (25.0-34.0); Mean Corpuscular Hgb Conc 34.7 g/dL (32.0-36.0); Mean Corpuscular Volume 93.8 fL (80.0-100.0); Mean Platelet Volume 10.8 fL (9.4-12.4); Monocytes # (auto) 0.44 K/uL (0.11-0.59); Monocytes % (auto) 6.9 %; Neutrophils # (auto) 4.12 K/uL (1.40-6.50); Neutrophils % (auto) 64.6 %; Platelet Count 149 K/uL (130-400); RDW Coefficient of Variation 11.8 % (11.5-14.5); RDW Standard Deviation 40.2 fL (36.4-46.3); Red Blood Count 3.72 M/uL (4.20-5.40); White Blood Count 6.37 K/ul (4.8-10.8)
[2022-08-17 07:00] LABS: BUN Creatinine Ratio 8.9 (10-20); Calcium 7.9 mg/dl (8.6-10.3); Creatinine Clr Calc Pharmacy 108.1 ml/min; Est GFR (Non-African American) 108.7 ml/min
[2022-08-17] MEDS ORDERED: INSULIN HUMAN NPH SC SCH (08:00)
[2022-08-17] MEDS: INSULIN ASPART PER UNIT CHARGE SC SCH ×4 (08:59→22:15)
[2022-08-17] MEDS: APIXABAN 5 MG TABLET PO SCH ×2 (09:02→21:55)
[2022-08-17] MEDS: SODIUM CHLORIDE 0.9% 1000ML 1,000 ML IV SCH ×2 (11:07→22:08)
--- NOTE | 2022-08-17 14:45 | Pharmacy Report ---
Pharmacy Glycemic Short Note 2 - Date of Service August 17, 2022 - Glycemic Short BSG Results (Last 24 hours): 08/16/22 08/16/22 08/16/22 17:03 17:09 17:24 Glucose POC Glucose 37 L* 42 L* 43 L* 08/16/22 08/16/22 08/16/22 17:42 17:59 18:16 Glucose POC Glucose 56 L* 69 L* 95 08/16/22 08/17/22 08/17/22 20:21 05:47 07:57 Glucose 119 H POC Glucose 89 113 H 08/17/22 11:55 Glucose POC Glucose 135 H OUTPATIENT ANTIDIABETIC REGIMEN: * Novolin N 21 units SC AM + 7 units SC PM * Novolog 8 units SC AM + 3 units SC PM * HbA1c: 5.7% (08/11/22) ASSESSMENT: 08/17: * Kristie received 21 units of insulin yesterday (15 units NPH + 6 units Novolog). * On 08/16, her evening dose of NPH was discontinued due to severe AM hypoglycemia and her AM dose of NPH was increased to combat dinnertime hyperglycemia. Patient then had a second episode of severe hypoglycemia around dinner time. * Fasting of 119 mg/dL this morning - continue to hold evening NPH. Decrease AM NPH by 50% and loosen correction factor. * Of note, patient reported frequent episodes of hypoglycemia at home to nursing. This information has been communicated to patients PCP and to surgery (no hospitalist consult). 08/15: * Kristie received 2 units of correctional insulin postoperatively yesterday. BSGs were 38-827-77-224 mg/dL. * Fasting BSG this AM elevated at 257 mg/dL. Starting NPH this AM. Will monitor lunchtime BSG and make decision on PM NPH dose at that time. Did tighten Novolog parameters slightly. * Lunchtime BSG was up to 260 mg/dL. Patient did eat some lunch. Will tighten correction factor at lunchtime. Adding 5 units of NPH with dinner. 08/14: * 52 yo F admitted on 08/14/22 s/p ileostomy reversal. Pharmacy has been consulted to assist with inpatient glycemic management. Patient is a well controlled Type 1 diabetic as an outpatient. Please refer to outpatient regimen and most recent HbA1c above. * Ordered a T1DM diet but barely ate anything for lunch. Did receive 4 mg of IV Dexamethasone perioperatively. * Preop BSGs were: 145 and 67 mg/dL. Postop BSG was 64 mg/dL. Patient was fortunately asymptomatic with each episode. Repeat BSG at lunchtime was 106 mg/dL. * Of note, patient did take 10 units of Novolin N this AM as well as 1 unit of Novolog prior to admission. * At this point, will hold off on any further Novolin N today. Will reassess need in the AM. Will start Novolog based on weight/stress of 1. Given BSGs so far, will target a goal BSG range of 120-160 mg/dL. PLAN FOR INPATIENT GLYCEMIC CONTROL: * Basal insulin * NPH 7 units SC AM * NPH in PM - on hold * Bolus insulin * NovoLog per scale ACHS or Q6hrs while NPO * Goal Range: Low 120 mg/dL - High 160 mg/dL * Correction Factor: 40 mg/dL/unit * Nutritional / Prandial insulin per carb ratio of 1 unit per 15 grams CHO consumed
[2022-08-17] MEDS: CARBOHYDRATES FOR HYPOGLYCEMIA PO PRN (16:54)
[2022-08-17] MEDS: TRI-SPRINTEC PO SCH (21:55)
[2022-08-17] MEDS: MoRPHine SULFATE 2 MG/ML CARP IV PRN (22:16)
[2022-08-18] MEDS: ONDANSETRON INJ 2 MG/ML 2 ML VIAL IV PRN (08:03)
[2022-08-18] MEDS ORDERED: INSULIN HUMAN NPH SC SCH ×2 (08:30→16:30)
--- NOTE | 2022-08-18 08:59 | Surgery Progress Note ---
Date of Service August 18, 2022 Assessment & Plan (1) Status post reversal of ileostomy: Plan: At this point in time she is doing well. Her bowels have moved she is tolerating a good diet and she is comfortable. We discussed discharge today versus tomorrow and she really would like to go today. We will give her a low fiber diet for lunch and if she tolerates that we will allow her to go home this afternoon. Follow-up with 1 week to remove the [place] drain. Wound care instructions given. (2) Right leg DVT: Admission and Anticipated Discharge Date Admission Date: August 14, 2022 Subjective Patient seen. Doing well. Had some nausea this morning but it has resolved. She is tolerating full liquids and would like to go home today. Physical Exam Physical Exam: Alert and oriented no acute distress Abdomen is soft nontender. Her incision is clean dry intact and looks great Results & Data Vital Signs (Past 12 Hours) Vital Signs Temp Pulse Resp BP Pulse Ox Pulse Ox O2 Del Method 08/18/22 07:09 36.9 C 102 H 16 108/67 97 Room Air 08/17/22 21:55 Room Air 08/17/22 21:55 100 O2 Del Method 08/18/22 07:09 08/17/22 21:55 08/17/22 21:55 Room Air PG Care Time/CCT Total # of Minutes Spent Total Time Spent with Patient: Total time spent is greater than 50% in coordination of care (as documented) at patient's floor/unit and/or counseling patient: Coding Level of Care Code 29841 Post Operative Follow-Up Diagnoses Status post reversal of ileostomy Z98.890 Right leg DVT I82.401
[2022-08-18] MEDS: APIXABAN 5 MG TABLET PO SCH (09:11)
[2022-08-18] MEDS: INSULIN ASPART PER UNIT CHARGE SC SCH ×2 (09:11→12:54)
--- NOTE | 2022-08-18 09:51 | Pharmacy Report ---
Pharmacy Glycemic Short Note 2 - Date of Service August 18, 2022 - Glycemic Short BSG Results (Last 24 hours): 08/17/22 08/17/22 08/17/22 11:55 16:49 16:50 POC Glucose 135 H 66 L* 67 L* 08/17/22 08/17/22 08/18/22 17:10 20:55 08:01 POC Glucose 75 189 H 289 H OUTPATIENT ANTIDIABETIC REGIMEN: * Novolin N 21 units SC AM + 7 units SC PM * Novolog 8 units SC AM + 3 units SC PM * HbA1c: 5.7% (08/11/22) ASSESSMENT: 08/18: * Patient received 10 units of insulin yesterday, 7 units NPH + 3 units Novolog. BSGs were: 065-066-40-189 mg/dL. Patient required 15 grams of carbs at dinnertime for low BSG. * Fasting BSG this AM was 289 mg/dL. Despite hypoglycemia at dinner last night, will continue with current NPH regimen given severe fasting hyperglycemia. May consider the addition of a very small PM dose of NPH (1-2 units) to help combat fasting hyperglycemia. * Loosened carb ratio with breakfast today. Goal range has also been loosened. 08/17: * Kristie received 21 units of insulin yesterday (15 units NPH + 6 units Novolog). * On 08/16, her evening dose of NPH was discontinued due to severe AM hypoglycemia and her AM dose of NPH was increased to combat dinnertime hyperglycemia. Patient then had a second episode of severe hypoglycemia around dinner time. * Fasting of 119 mg/dL this morning - continue to hold evening NPH. Decrease AM NPH by 50% and loosen correction factor. * Of note, patient reported frequent episodes of hypoglycemia at home to nursing. This information has been communicated to patients PCP and to surgery (no hospitalist consult). 08/15: * Kristie received 2 units of correctional insulin postoperatively yesterday. BSGs were 46-992-09-224 mg/dL. * Fasting BSG this AM elevated at 257 mg/dL. Starting NPH this AM. Will monitor lunchtime BSG and make decision on PM NPH dose at that time. Did tighten Novolog parameters slightly. * Lunchtime BSG was up to 260 mg/dL. Patient did eat some lunch. Will tighten correction factor at lunchtime. Adding 5 units of NPH with dinner. 08/14: * 52 yo F admitted on 08/14/22 s/p ileostomy reversal. Pharmacy has been consulted to assist with inpatient glycemic management. Patient is a well controlled Type 1 diabetic as an outpatient. Please refer to outpatient regimen and most recent HbA1c above. * Ordered a T1DM diet but barely ate anything for lunch. Did receive 4 mg of IV Dexamethasone perioperatively. * Preop BSGs were: 145 and 67 mg/dL. Postop BSG was 64 mg/dL. Patient was fortunately asymptomatic with each episode. Repeat BSG at lunchtime was 106 mg/dL. * Of note, patient did take 10 units of Novolin N this AM as well as 1 unit of Novolog prior to admission. * At this point, will hold off on any further Novolin N today. Will reassess need in the AM. Will start Novolog based on weight/stress of 1. Given BSGs so far, will target a goal BSG range of 120-160 mg/dL. PLAN FOR INPATIENT GLYCEMIC CONTROL: * Basal insulin * NPH 7 units SC AM * NPH in PM - on hold * Bolus insulin * NovoLog per scale ACHS or Q6hrs while NPO * Goal Range: Low 140 mg/dL - High 180 mg/dL * Correction Factor: 40 mg/dL/unit * Nutritional / Prandial insulin per carb ratio of 1 unit per 20 grams CHO consumed
[2022-08-18 10:55] LABS: Creatinine Clr Calc Pharmacy 99.3 ml/min; Est GFR (African American) 122.5 ml/min; Est GFR (Non-African American) 105.7 ml/min
[2022-08-18] MEDS: SODIUM CHLORIDE 0.9% 1000ML 1,000 ML IV SCH (13:06)
--- NOTE | 2022-08-21 14:21 | Discharge Summary ---
Date of Service August 18, 2022 Principal Diagnosis s/p reversal of ileostomy DVT Discharge Exam awake/alert, no distress Respiratory normal respiratory effort Gastrointestinal (Abdomen) Inspection/Auscultation: + abdominal surgical incision (surgical dressing c/d/i ); abdomen not distended Percussion/Palpation: + abdomen tender (expected tyler incisional discomfort ) and abdomen soft Discharge Data Allergies Allergy/AdvReac Type Severity Reaction Status Date / Time No Known Allergies Allergy Verified 08/14/22 06:09 Procedures Performed Operation Date: 08/14/22 07:15 Actual Procedures p Open Ileostomy Reversal(Right) - Kole Alcala, Hospital Course (1) Status post reversal of ileostomy: This is a 52yF who presented to the [facility] on 08/14/22 for elective reversal of her ileostomy with Dr. Alcala. The patient tolerated the procedure well, see op note for full details. The patient recovered in the PACU and was transferred to the med/surg unit in stable condition. Post op she remained on 24hours abx. POD#1 she dealt with some nausea and had a bout of emesis and she remained on clears as she tolerated with IVF. Eliquis was resumed for history of DVT. As her symptoms improved and she started to have + bowel function her diet was slowly advanced as tolerated. She started out with clears then advanced to fulls and low fiber. Pain was controlled with transition from IV to PO pain medications. Activity encouraged throughout her stay. On 08/18 the patient was having + BMs and tolerating a low fiber diet. She was deemed stable for discharge to home. She was instructed to follow up in clinic within 1-2 weeks time. Total Time Total Time Spent Total Time Spent (In Minutes): 15 Discharge Plan Discharge Items Patient Disposition: Home - Self-Care Reason For Visit: Ileostomy REVERSAL Discharge Diagnosis: ileostomy reversal Activity: Per Instructions section Lifting: No more than 10 pounds Bathing Comment: may shower; no soaking in tubs/pools Exercise/Sports: Wait until after follow-up appointment Driving/Machine Use: no driving while taking narcotics for pain Non-emergency contact: Surgeon Call non-emergency contact if: you have any medication questions, your symptoms worsen, your pain is not controlled, your pain is concerning for you, you have a fever, your temperature is above 101.5, your wound has increased redness, your wound has increased drainage and your wound pain has increased Follow-up/Referrals: Kole Alcala, [Surgeon] - 08/27/22 9:00 am (Please call to schedule follow up in clinic within 2 weeks ) Freda Duran MD [Primary Care Provider] - Diet: Low Fiber Addtl Attending Provider Instructions: You have surgical laura in place that will be removed at one of your follow up appointments. You may keep your incision covered with dry gauze and tape- change daily and as needed. 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 Alcala. Pending Studies at Discharge: Yes Studies:: surgical pathology Stand-Alone Forms: My [facility] Medications and DC Order Prescriptions: New ondansetron 4 mg tablet,disintegrating 4 mg PO Q8H PRN (Reason: nausea and vomiting) 4 Days Qty: 10 0RF oxycodone-acetaminophen 5-325 mg tablet 1 tab PO Q6H PRN (Reason: pain) Qty: 20 0RF Continued simvastatin 80 mg tablet 80 mg PO QPM Qty: 90 3RF (DME) insulin syringe-needle U-100 [BD Insulin Syringe Ultra-Fine] 0.5 mL 31 gauge x 5/16" syringe See Dose Instructions .ROUTE .MEDSUPPLY Qty: 150 5RF Dose Instruction: As directed Rx Instructions: As directed twice daily or as needed (DME) FreeStyle Lite Strips Strip See Dose Instructions .ROUTE .MEDSUPPLY Qty: 300 5RF Dose Instruction: As directed Rx Instructions: Test blood sugar 6 times daily due to frequent hypoglycemia Eliquis 5 mg tablet 5 mg PO BID Qty: 60 1RF norgestimate-ethinyl estradiol [Tri-Sprintec (28)] 0.18/0.215/0.25 mg-35 mcg (28) tablet 1 tab PO QPM Qty: 84 3RF Centrum Complete 18-400 mg-mcg tablet 1 tab PO QAM (DME) lancets [Lite Touch Lancets] 30 gauge misc See Dose Instructions .ROUTE .MEDSUPPLY Qty: 300 5RF Dose Instruction: As directed Rx Instructions: As directed test 3-4 times daily or as needed insulin aspart U-100 [Novolog U-100 Insulin aspart] 100 unit/mL solution 8 unit SQ UD Rx Instructions: 8 unit SQ every AM and 2 units in PM as instructed based on blood sugars ; (VERLUIS ANGELD PAT CALL 04/14/22) lisinopril 10 mg tablet 10 mg PO QPM Hold Instructions: low BP Novolin N NPH U-100 Insulin 100 unit/mL suspension 27 unit SQ UD Rx Instructions: 21 unit SQ in the AM and 7 units in the evening or as instructed ; calcium 600 mg Capsule 600 mg PO QAM Discharge Orders: Discharge Order (Routine); Ordered 08/18/22 Ordered By: Kole Alcala Admission Data Admit Date/Time: 08/14/22 08:53 Attending Provider: Kole Alcala Admit Provider: Kole Alcala Primary Care Provider: Freda Duran Other Interventions: Discharge Summary Assessment (RN) Last Done: 08/18/22 13:15 Coding Level of Care Code 25174 IN/OBS DISCH 30 MIN/LESS Diagnoses Status post reversal of ileostomy Z98.890
== END 2022-08-18 14:14 | disposition home or self-care (01) | DRG 330 ==
LOC: ASU 05:41 → 3E 08:53